=== PATIENT | female | born 1955 | race African-American/Black ===

== ENCOUNTER 2016-10-05 22:49 | Emergency (ER) | payer MEDICAID ==
[2016-08-08 12:12] VITALS: BMI 20.3
[~2016-10-05 22:49] MED LIST: ATIVAN1 MG PO; BACTRIM DS TABL1 TAB PO; CARAFATE1 G PO; CATAPRES0.1 MG PO; CELEXA20 MG PO; COMBIVENT RESPIM4 GM INH; DESERYL100 MG PO; DIOVAN320 MG PO; ELIQUIS5 MG PO; HYDROCODONE-APA1 TAB PO; IPRAT-ALBUT 0.5-3 ML UPD; LEVAQUIN500 MG PO; MEDROL DOSE PACK4 MG PO; MUCINEX DM ER1 EAC1 PO; NORCO 10/325 TA1 TA1 PO; NORCO 5/325 TAB1 TA1 PO; NORVASC10 MG PO; NORVASC5 MG PO; PLAVIX75 MG PO; PREDNISONE20 MG PO; PRILOSEC20 MG PO; PROTONIX40 MG PO; SINGULAIR10 MG PO; VENTOLIN HFA18 GM INH; ZANAFLEX4 MG PO; ZESTRIL10 MG PO; ZOCOR20 MG PO; ZOCOR40 MG PO; ZOFRAN ODT4 MG/UDTAB PO
[2016-10-05 23:16] LABS: BASOPHILS 0.2 % (0.0-2.0); EOSINOPHILS 0.5 % (0-7); HEMATOCRIT 29.5 % (36.0-48.0); HEMOGLOBIN 8.8 g/dL (12-16); IMMATURE GRANULOCYTES 0.3 % (0-5); LYMPHOCYTES 21.3 % (15-50); MCH 23.2 pg (26.0-34.0); MCHC 29.8 g/dL (31.0-37.0); MCV 77.6 fL (80.0-100.0); MEAN PLATELET VOLUME 9.3 fL (7.4-10.4); MONOCYTES 4.3 % (2-11); NEUTROPHILS 73.4 % (40-80); PLATELET COUNT 333 10x3/uL (130-400); RDW 14.4 % (11.5-14.5); WBC 8.6 10x3/uL (4.8-10.8)
[2016-10-05 23:28] LABS: ALBUMIN 3.2 g/dL (3.4-5.0); ALKALINE PHOSPHATASE 93 U/L (46-116); ALT (SGPT) 22 U/L (10-68); CALC OSMOLALITY 277 mosm/kg (275-300); CALCIUM 8.8 mg/dL (8.5-10.1); CARBON DIOXIDE 23.7 mmol/L (21.0-32.0); CHLORIDE - SERUM 102 mmol/L (98-107); CREATININE - SERUM 1.2 mg/dL (0.6-1.3); POTASSIUM - SERUM 4.4 mmol/L (3.5-5.1); PROTEIN - SERUM 7.3 g/dL (6.4-8.2); SODIUM 137 mmol/L (136-145); UREA NITROGEN 15 mg/dL (7-18); eGFR NON AFRICAN AMERICAN 48 mL/min (90-120)
[2016-10-05 23:34] LABS: GLUCOSE 161 mg/dL (74-106)
[2016-10-05 23:45] LABS: CKMB 0.2 U/L (0.0-3.6); CREATINE KINASE 62 UL (21-215); TROPONIN-I < 0.017 ng/mL (0.000-0.060)
== END 2016-10-06 01:34 | disposition home or self-care (01) ==
LOC: D.ER 22:49
PROVIDERS: Emergency Medicine
DX: J45.909 Unspecified asthma, uncomplicated (principal); R07.9 Chest pain, unspecified; D64.9 Anemia, unspecified; R20.0 Anesthesia of skin; J44.9 Chronic obstructive pulmonary disease, unspecified

== ENCOUNTER 2016-11-08 20:17 | Emergency (ER) | payer MEDICAID ==
[2016-08-08 12:12] VITALS: BMI 20.3
[2016-11-08 21:27] LABS: BASOPHILS 0.5 % (0.0-2.0); EOSINOPHILS 6.7 % (0-7); HEMATOCRIT 27.9 % (36.0-48.0); IMMATURE GRANULOCYTES 0.1 % (0-5); LYMPHOCYTES 47.1 % (15-50); MCH 22.2 pg (26.0-34.0); MCHC 28.7 g/dL (31.0-37.0); MCV 77.5 fL (80.0-100.0); MEAN PLATELET VOLUME 10.1 fL (7.4-10.4); MONOCYTES 7.3 % (2-11); NEUTROPHILS 38.3 % (40-80); PLATELET COUNT 325 10x3/uL (130-400); RDW 15.3 % (11.5-14.5); WBC 8.6 10x3/uL (4.8-10.8)
[2016-11-08 21:42] LABS: ALBUMIN 3.3 g/dL (3.4-5.0); ALKALINE PHOSPHATASE 75 U/L (46-116); ALT (SGPT) 18 U/L (10-68); BILIRUBIN - TOTAL 0.24 mg/dL (0.2-1.3); CALC OSMOLALITY 278 mosm/kg (275-300); CALCIUM 8.9 mg/dL (8.5-10.1); CARBON DIOXIDE 24.4 mmol/L (21.0-32.0); CHLORIDE - SERUM 104 mmol/L (98-107); CREATININE - SERUM 1.2 mg/dL (0.6-1.3); POTASSIUM - SERUM 4.6 mmol/L (3.5-5.1); SODIUM 139 mmol/L (136-145); UREA NITROGEN 15 mg/dL (7-18); eGFR NON AFRICAN AMERICAN 48 mL/min (90-120)
[2016-11-08 21:43] LABS: GLUCOSE 91 mg/dL (74-106)
[2016-11-08 21:50] LABS: CREATINE KINASE 203 UL (21-215); MAGNESIUM - SERUM 1.8 mg/dL (1.8-2.4); PRO BNP 130 pg/mL (0-125)
[2016-11-08 21:51] LABS: TROPONIN-I < 0.017 ng/mL (0.000-0.060)
== END 2016-11-08 22:45 | disposition home or self-care (01) ==
LOC: D.ER 20:17
PROVIDERS: Nurse Practitioner Family
DX: D64.9 Anemia, unspecified (principal); J44.9 Chronic obstructive pulmonary disease, unspecified; I95.9 Hypotension, unspecified; Z95.0 Presence of cardiac pacemaker

== ENCOUNTER 2016-11-28 11:11 | Inpatient (IN) | payer MEDICAID ==
[~2016-11-28] VITALS: Ht 165.1 cm; Wt 88.8 kg
[2016-11-28 12:21] LABS: BASOPHILS 0.4 % (0.0-2.0); EOSINOPHILS 6.8 % (0-7); HEMATOCRIT 30.6 % (36.0-48.0); HEMOGLOBIN 8.8 g/dL (12-16); IMMATURE GRANULOCYTES 0.2 % (0-5); LYMPHOCYTES 23.2 % (15-50); MCH 21.2 pg (26.0-34.0); MCHC 28.8 g/dL (31.0-37.0); MCV 73.6 fL (80.0-100.0); MEAN PLATELET VOLUME 9.6 fL (7.4-10.4); MONOCYTES 3.3 % (2-11); NEUTROPHILS 66.1 % (40-80); PLATELET COUNT 333 10x3/uL (130-400); RBC 4.16 10x6/uL (4.00-5.40); RDW 15.6 % (11.5-14.5)
[2016-11-28 12:37] LABS: ALBUMIN 3.5 g/dL (3.4-5.0); ANION GAP 16.6 mmol/L (8-16); BILIRUBIN - TOTAL 0.37 mg/dL (0.2-1.3); CALCIUM 8.9 mg/dL (8.5-10.1); CARBON DIOXIDE 22.9 mmol/L (21.0-32.0); POTASSIUM - SERUM 3.5 mmol/L (3.5-5.1); PROTEIN - SERUM 7.7 g/dL (6.4-8.2)
[2016-11-28] MEDS ORDERED: KLONOPIN1 MG PO (15:25)
[2016-11-28] MEDS ORDERED: GLUCOPHAGE1000 MG PO (15:26)
--- NOTE | 2016-11-28 15:32 | NUR ---
RECEIVED PT VIA STRETCHER FROM HOSPITAL STAFF (ER NURSES). PT IS ALERT AND ORIENTED. ON ROOM AIR (SAT IS 99%). IV SEEN TO LEFT HAND, NS STARTED BACK ORDERED. LABORED BREATHING WITH WHEEZES HEARD. DENIES ANY PAIN AT THIS TIME. WILL CONTINUE TO ADMIT PT AND AWAIT NEW ORDERS.
[2016-11-28 15:34] VITALS: BP 151/83; BMI 32.3
--- NOTE | 2016-11-28 19:05 | NUR ---
PM ROUNDING- PT SITTING UP IN BED VISITING WITH FAMILY MEMBERS IN ROOM. ON MONITOR SHOWING ST, HR 107. ON ROOM AIR. 22G IV SEEN TO LEFT HAND WITH ANTIBIOTICS CURRENTLY RUNNING. PT HAS A PRODUCTIVE COUGH. ON LOVENOX INJECTION FOR DVT PREVENTION. NO NEED AT CURRENT TIME. WILL PASS THIS ALONG TO MANAGING PARTNER NURSE THAT COMES IN AT 1000.
[2016-11-28 20:00] VITALS: BP 115/72
--- NOTE | 2016-11-28 21:16 | NUR ---
PTS DAUGHTER CALLED ME AND STATED PT IS IN THE ROOM C/O TROUBLE BREATHING. WENT AND CHECKED PTS O2 SAT WHICH IS 97% ON ROOM AIR. PTS FAMILY AND PT IS REQUESTING O2 TO BE PUT ON PT. PUT PT ON 02 AT 2L VIA NC AND PT STATED SHE WAS BREATHING BETTER. PT O2 SAT IS 97% WITH 02 AT 2L. WILL PAGE MONISHA GARZON NP AND INFORM HER OF THIS.
--- NOTE | 2016-11-28 21:19 | NUR ---
AUDI GARZON NP TO INFORM HER OF PT AND PTS FAMILY (DAUGHTERS) REQUEST TO BE ON . WILL AWAIT CALLBACK AND CONTINUE TO MONITOR.
--- NOTE | 2016-11-28 21:31 | NUR ---
RECEIVED CALLBACK FROM MONISHA GARZON NP. MONISHA GARZON NP STATED IT WAS OK TO PUT PT ON 02 AT 2L VIA MA. NEW ORDERS RECEIVED.
--- NOTE | 2016-11-28 21:47 | NUR ---
CALLED INTO PTS ROOM. PT INFORMED ME THAT AREA AROUND IV SITE WAS HURTING HER. PTS IV CATHETER WAS SHELTER OUT. TOOK IV CATHETER OUT WITH CATH TIP INTACT. COVERED SITE WITH 2X2 GAUZE AND SECURED IT WITH TAPE. RESITED PT TO RIGHT FOREARM X1 STICK WITH 22G IV CATHETER, SECURED WITH TAPE AND TEGADERM. IV FLUIDS RESTARTED ORDERED. WILL CONTINUE TO MONITOR AND CONTINUE WITH PLAN OF CARE.
--- NOTE | 2016-11-28 23:00 | NUR ---
RADIOLOGY HERE TO TAKE PATIENT FOR CTA VIA WHEELCHAIR.
[2016-11-29] VITALS: BP 141/76
--- NOTE | 2016-11-29 00:30 | NUR ---
REPORT RECEIVED AND CARE ASSUMED. AWAKE AND ALERT, LYING IN BED. NO VOICED NEEDS OR DISCOMFORT. SEE ASSESSMENT FLOW SHEET FOR FURTHER DETAILS. WILL MONITOR AND CONTINUE PLAN OF CARE.
[2016-11-29 04:00] VITALS: BP 156/80
[2016-11-29 05:13] LABS: BASOPHILS 0 % (0.0-2.0); EOSINOPHILS 0 % (0-7); HEMATOCRIT 28.7 % (36.0-48.0); HEMOGLOBIN 8.4 g/dL (12-16); IMMATURE GRANULOCYTES 0.3 % (0-5); LYMPHOCYTES 9.7 % (15-50); MCH 21.4 pg (26.0-34.0); MCHC 29.3 g/dL (31.0-37.0); MCV 73.2 fL (80.0-100.0); MEAN PLATELET VOLUME 9.9 fL (7.4-10.4); MONOCYTES 1.6 % (2-11); NEUTROPHILS 88.4 % (40-80); PLATELET COUNT 340 10x3/uL (130-400); RBC 3.92 10x6/uL (4.00-5.40); RDW 15.6 % (11.5-14.5); WBC 10.3 10x3/uL (4.8-10.8)
[2016-11-29 05:45] LABS: ANION GAP 16.2 mmol/L (8-16); CALCIUM 9.7 mg/dL (8.5-10.1); CARBON DIOXIDE 21.9 mmol/L (21.0-32.0)
[2016-11-29 05:53] LABS: POTASSIUM - SERUM 4.1 mmol/L (3.5-5.1)
[2016-11-29 08:11] VITALS: BP 178/96
--- NOTE | 2016-11-29 08:40 | NUR ---
RECEIVED CARE FROM NIGHT NURSE. PATIENT EATING BREAKFAST WILL CONTINUE TO MONITOR.
[2016-11-29 10:47] LABS: % SATURATION 4 % (15-55); IRON 18 ug/dl (35-150); TOTAL IRON BIND CAPACITY 388 ug/dl (260-445); UNSAT IRON BIND CAPACITY 370 ug/dl (150-375)
--- NOTE | 2016-11-29 10:49 | NUR ---
AMBULATING IN [place] WITH PT. CONCERN ABOUT BP MEDS. ADDRESSED WITH Jonny GARZON APN.
--- NOTE | 2016-11-29 10:52 | NUR ---
PT IS CURRENTLY SITTING UP IN CHAIR. FAMILY MEMBER AT BEDSIDE. ON 02 AT 2L VIA NC. ON MONITOR SHOWING ST, HR 108. ON 02 AT 2L VIA NC. IV SEEN TO RIGHT FOREARM WITH NS RUNNING AT 50CC/HR. ON LOVENOX INJECTION FOR DVT PREVENTION PER REPORT. PT IS CURRENTLY ASKING ABOUT HER BLOOD PRESSURE MEDICINE. STEPHANIE AVILES, CLERICAL PRODUCTION WORKER STATED THAT SHE HAS ALREADY TALKED TO MONISHA GARZON NP ABOUT THAT. NO NEED AT CURRENT TIME. STEPHANIE AVILES, CLERICAL PRODUCTION WORKER IS DOING DAILY SHIFT ASSESSMENT. WILL CONTINUE WITH CARE PLAN AND TEACHING. WILL CONTINUE WITH PLAN OF CARE.
[2016-11-29 11:58] VITALS: BP 140/78
[2016-11-29 12:45] VITALS: Ht 165.1 cm; Wt 88.8 kg
--- NOTE | 2016-11-29 12:57 | NUR ---
MIGUEL EDUARDO CAME TO INFORM ME THAT PT IS HAVING C/O CHEST PAIN. DR. TOSCANO AND MONISHA GARZON NP ARE IN ROOM NOW WITH PT AND ARE AWARE OF THIS. WILL CONTINUE TO MONITOR AND AWAIT NEW ORDERS.
[2016-11-29 15:55] VITALS: BP 114/63
--- NOTE | 2016-11-29 16:22 | NUR ---
EKG DONE ORDERED. DID TWO OF THEM WHILE IN ROOM. SHOWED MONISHA GARZON NP WHO IS ON UNIT NOW. NO NEW ORDERS RECEIVED. WILL CONTINUE TO MONITOR.
[2016-11-29 17:32] LABS: CKMB 5.7 U/L (0.0-3.6); CREATINE KINASE 72 UL (21-215)
[2016-11-29 17:41] LABS: TROPONIN-I < 0.017 ng/mL (0.000-0.060)
--- NOTE | 2016-11-29 17:53 | NUR ---
PT SITTING UP IN BED WITH EYES OPEN WATCHING TV. DENIES ANY NEED AT CURRENT TIME. WILL CONTINUE TO MONITOR.
--- NOTE | 2016-11-29 19:30 | NUR ---
SITTING UP IN BED, WATCHING TV WITH VISISTOR. TELEMETRY SHOWING HR ST- SR PER MONITOR, RESP UNLAB WITH O2 @ 2L VIA NC. LEFT AC IV WITH NS AT 30CC/HR VIA PUMP IN PLACE W/O DIFF. NO R/S NOTED AT SITE. HOB UP SR UP X2, C/L IN REACH. UP AD MANNY W/O DIFF. ALERT AND ORIENTED X3. CONTINUE TO MONITOR.
[2016-11-29 20:29] VITALS: BP 116/60
[2016-11-29 22:27] LABS: CKMB 0.6 U/L (0.0-3.6); CREATINE KINASE 61 UL (21-215)
[2016-11-29 22:33] LABS: TROPONIN-I < 0.017 ng/mL (0.000-0.060)
[2016-11-30] VITALS: BP 115/52
--- NOTE | 2016-11-30 03:54 | NUR ---
EYES CLOSED, RESP UNLAB WITH NO S/S OF ACUTE DISTRESS NOTED. C/L IN REACH, CONTINUE TO MONITOR.
[2016-11-30 04:00] VITALS: BP 112/64
[2016-11-30 04:21] LABS: BASOPHILS 0 % (0.0-2.0); EOSINOPHILS 0 % (0-7); HEMATOCRIT 28.8 % (36.0-48.0); HEMOGLOBIN 8.3 g/dL (12-16); IMMATURE GRANULOCYTES 0.2 % (0-5); LYMPHOCYTES 8.2 % (15-50); MCH 21.3 pg (26.0-34.0); MCHC 28.8 g/dL (31.0-37.0); MEAN PLATELET VOLUME 9.6 fL (7.4-10.4); MONOCYTES 1.9 % (2-11); NEUTROPHILS 89.7 % (40-80); PLATELET COUNT 363 10x3/uL (130-400); RBC 3.89 10x6/uL (4.00-5.40); RDW 15.7 % (11.5-14.5); WBC 12.9 10x3/uL (4.8-10.8)
[2016-11-30 04:51] LABS: CALCIUM 9.3 mg/dL (8.5-10.1); CARBON DIOXIDE 24.9 mmol/L (21.0-32.0); CHLORIDE - SERUM 104 mmol/L (98-107); CKMB 0.5 U/L (0.0-3.6); CREATINE KINASE 48 UL (21-215); POTASSIUM - SERUM 4.2 mmol/L (3.5-5.1); SODIUM 138 mmol/L (136-145); eGFR NON AFRICAN AMERICAN 60 mL/min (90-120)
[2016-11-30 04:57] LABS: CALC OSMOLALITY 287 mosm/kg (275-300); GLUCOSE 301 mg/dL (74-106); TROPONIN-I < 0.017 ng/mL (0.000-0.060); UREA NITROGEN 16 mg/dL (7-18)
[2016-11-30 07:47] VITALS: BP 115/63
[2016-11-30 09:21] LABS: FOLATE (FOLIC ACID) - SERUM 4.2 ng/mL (>3.0)
--- NOTE | 2016-11-30 09:36 | NUR ---
0700- AM ROUNDING- PT SITTING UP IN BED WITH EYES OPEN RESTING. ON MONITOR SHOWING ST, HR 111. ON LOVENOX INJECTION FOR DVT PREVENTION. ON ROOM AIR. IV SEEN TO LEFT AC WITH ANTIBIOTICS CURRENTLY RUNNING. PER TRANSPORTATION COORDINATOR NURSE LILIBETH PT HAD EKG DONE DURING TRANSPORTATION COORDINATOR. NO NEED AT CURRENT TIME. WILL CONTINUE WITH PLAN OF CARE AND CONTINUE TO MONITOR.
--- NOTE | 2016-11-30 10:15 | NUR ---
PT STATED TO ME THAT SHE SHE FELT DIZZY AND NOT WELL. I CHECKED PTS BS WHICH IS 466. PAGED MONISHA GARZON NP TO NOTIFY HER OF THIS. MONISHA GARZON NP CALLED BACK AND GAVE NEW ORDERS. WILL CONTINUE TO MONITOR.
--- NOTE | 2016-11-30 10:23 | NUR ---
CALLED PHARMACY TO SEE IF THEY COULD ACKNOWLEDGE INSULIN ORDERS SO I CAN GIVE IT TO PT. AWAITING PHARMACY TO BRING INSULIN.
[2016-11-30 11:45] VITALS: BP 125/60
[2016-11-30 15:47] VITALS: BP 137/71
--- NOTE | 2016-11-30 17:52 | NUR ---
PT SITTING UP IN BED WITH EYES OPEN WATCHING TV. AT BEDSIDE. NO NEED AT CURRENT TIME. WILL CONTINUE TO MONITOR.
--- NOTE | 2016-11-30 18:42 | NUR ---
PT STATES THAT WHEN DR. RASHID WAS MAKING ROUNDS EARLIER TODAY HE STATED HE WOULD GET HER SOMETHING ORDERED FOR BACK PAIN. I HAVE NOT SEEN ANY NEW ORDERS FOR PAIN MEDICATION. PAGED MONISHA GARZON NP. MONISHA GARZON NP CALLED BACK IMMEDIATELY WITH NEW ORDERS. WILL CONTINUE TO MONITOR.
--- NOTE | 2016-11-30 19:57 | NUR ---
INTRODUCED MYSELF TO PT PRIMARY RN FOR [facility] SHIFT. PT IS SITTING UP IN BED RESTING QUIETLY. ALERT & ORIENTED. SHIFT ASSESSMENT COMPLETED AND MUSEUM PREPARATOR MAKING ROUNDS FOR VITALS. PT DENIES ANY CURRENT NEEDS AT THIS TIME WILL PULL NIGHTLY SCHEDULED MEDICATIONS AND CONTINUE WITH PLAN OF CARE. CL IN REACH, BED IN LOWEST, SIDE RAILS X2.
[2016-11-30 20:00] VITALS: BP 138/75
[2016-11-30 23:27] LABS: APPEARANCE CLEAR (CLEAR); BILIRUBIN NEGATIVE (NEGATIVE); COLOR YELLOW (YELLOW); GLUCOSE 1000 mg/dL (NEGATIVE); KETONE NEGATIVE (NEGATIVE); LEUKOCYTE ESTERASE NEGATIVE (NEGATIVE); NITRITE NEGATIVE (NEGATIVE); PROTEIN NEGATIVE (NEGATIVE); UROBILINOGEN NORMAL (NORMAL)
[2016-12-01] VITALS: BP 106/62
[2016-12-01 04:00] VITALS: BP 127/80
--- NOTE | 2016-12-01 05:41 | NUR ---
PT CALLED REQUESTING PRN PAIN MEDICATION FOR SEVERE BACK ACHING. PROVIDED PT WITH NORCO. PT VOICED THANKS AND DENIES ANY FURTHER NEEDS AT THIS TIME. CL IN REACH, BED IN LOWEST, SIDE RAILS X2. WILL CTM.
[2016-12-01 06:24] LABS: BASOPHILS 0 % (0.0-2.0); EOSINOPHILS 0.1 % (0-7); HEMATOCRIT 28.6 % (36.0-48.0); HEMOGLOBIN 8.1 g/dL (12-16); IMMATURE GRANULOCYTES 0.3 % (0-5); LYMPHOCYTES 11.7 % (15-50); MCH 20.9 pg (26.0-34.0); MCHC 28.3 g/dL (31.0-37.0); MCV 73.9 fL (80.0-100.0); MONOCYTES 3.4 % (2-11); NEUTROPHILS 84.5 % (40-80); PLATELET COUNT 384 10x3/uL (130-400); RBC 3.87 10x6/uL (4.00-5.40); RDW 15.6 % (11.5-14.5); WBC 12.3 10x3/uL (4.8-10.8)
[2016-12-01 06:41] LABS: ANION GAP 13.9 mmol/L (8-16); CALCIUM 9.3 mg/dL (8.5-10.1); CARBON DIOXIDE 24.9 mmol/L (21.0-32.0); CREATININE - SERUM 1.1 mg/dL (0.6-1.3); POTASSIUM - SERUM 3.8 mmol/L (3.5-5.1)
[2016-12-01 07:00] VITALS: BP 152/85
--- NOTE | 2016-12-01 08:00 | NUR ---
PATIENT ALERT/ORIENT X4. LAC IV SITE. TELEMTRY IN PLACE. PATIENT TAKING SELF TO BATHROOM. AWARE OF NEED FOR STOOL SAMPLE.
--- NOTE | 2016-12-01 09:11 | NUR ---
RESTS WITH EYES CLOSED. IV PATENT. CALL LIGHT IN REACH. WILL CONT. PLAN OF CARE.
[2016-12-01 12:02] VITALS: BP 132/71
--- NOTE | 2016-12-01 12:04 | NUR ---
GLUCOSE LEVEL 393. TEN UNITS OF SLIDING SCALE INSULIN GIVEN. IV SITE LEAKING. IV KVO STOPED.
--- NOTE | 2016-12-01 13:29 | NUR ---
NEDA RN, VASCULAR NURSE HERE TO START IV LINE
--- NOTE | 2016-12-01 13:39 | NUR ---
IV access-22 gauge inserted left wrist. ROWENA Finney
--- NOTE | 2016-12-01 14:57 | NUR ---
Patient Name: HUSSEIN DURBIN Admission Status: ER Accout number: [id number] Admission Date: 11-29-2016 : 1955 Admission Diagnosis: Attending: MIKAEL Current LOS: 2 Anticipated DC Date: Planned Disposition: Home Primary Insurance: MEDICAID [place] Discharge Planning Comments: * Is the patient Alert and Oriented? Yes 0 * How many steps to enter\exit or inside your home? 0-I / 10-O 0 * PCP DR. ACEVEDO 0 * Pharmacy [facility] 0 * Preadmission Environment Home with Family 0 * ADLs Independent 0 * Equipment Nebulizer 0 * Other Equipment [facility] - MEDICAL EQUIPMENT PROVIDER 0 * List name and contact numbers for known caregivers / representatives who currently or will assist patient after discharge: CONNIE DURBIN, SPOUSE, 0 * Community resources currently utilized None 0 * Please name any agencies selected above. NONE 0 * Additional services required to return to the preadmission environment? No 0 * Can the patient safely return to the preadmission environment? Yes 0 * Has this patient been hospitalized within the prior 30 days at any hospital? No 0 CM MET WITH PT AND SPOUSE IN ROOM TO DISCUSS DISCHARGE PLANNING AND NEEDS. PT REPORTS LIVING AT HOME INDEPENDENTLY WITH HER SPOUSE. PT HAS NEBULIZER, [facility] IS PROVIDER. PT HAS NO OUTSIDE SERVICES ASSISTING IN THE HOME. CM DISCUSSED AVAILABILITY OF HOME HEALTH, REHAB SERVICES AND MEDICAL EQUIPMENT. PT DENIES DISCHARGE NEEDS, REPORTS HER SPOUSE WILL PICK HER UP FOR DISCHARGE HOME. CM TO FOLLOW AND ASSIST NEEDED. Dominatrix: Timmy Rivera
[2016-12-01 15:27] VITALS: BP 120/71
--- NOTE | 2016-12-01 17:24 | NUR ---
GLUCOSE LEVEL 290. SIX UNITS OF SLIDING SCALE GIVEN.
[2016-12-01 20:00] VITALS: BP 149/80
[2016-12-02] VITALS: BP 135/79
--- NOTE | 2016-12-02 01:47 | NUR ---
PT RESTING QUIETLY IN BED WITH EYES CLOSED. RR NONLABORED WITH NC @2L IN PLACE. NO S/S OF DISTRESS OR ANY CURRENT NEEDS NOTED AT THIS TIME. CL IN REACH. WILL CTM.
[2016-12-02 04:00] VITALS: BP 162/88
--- NOTE | 2016-12-02 05:26 | NUR ---
PT CALLED C/O HER L.WRIST PIV HURTING HER. IV WAS NOT INFILTRATED BUT WAS LEAKING. D/C PIV WITH CATHETER TIP FULLY INTACT. RESITED PT TO HER R.HAND WITH A 22 GUAGE X1 ATTEMPT. PT C/O BACK PAIN REQUESTING AND PROVIDED WITH PRN NORCO ALONG WITH A CUP OF COFFEE. PT VOICED THANKS AND DENIES ANY FURTHER NEEDS AT THIS TIME. CL IN REACH, BED IN LOWEST, SIDE RAILS X2. WILL CTM.
[2016-12-02 06:13] LABS: BASOPHILS 0 % (0.0-2.0); EOSINOPHILS 0 % (0-7); HEMATOCRIT 27.9 % (36.0-48.0); HEMOGLOBIN 8.1 g/dL (12-16); IMMATURE GRANULOCYTES 0.5 % (0-5); MCH 21.1 pg (26.0-34.0); MCV 72.7 fL (80.0-100.0); MONOCYTES 2.5 % (2-11); PLATELET COUNT 347 10x3/uL (130-400); RBC 3.84 10x6/uL (4.00-5.40); RDW 15.6 % (11.5-14.5); WBC 11.1 10x3/uL (4.8-10.8)
[2016-12-02 06:49] LABS: CALCIUM 8.9 mg/dL (8.5-10.1); CARBON DIOXIDE 23.8 mmol/L (21.0-32.0); CREATININE - SERUM 1.1 mg/dL (0.6-1.3); POTASSIUM - SERUM 3.8 mmol/L (3.5-5.1)
--- NOTE | 2016-12-02 06:54 | NUR ---
FSBS 317. PT REC'D 8 UNITS PER SS INSULIN. PT SITTING UP IN BED CONCERNED ABOUT LOSING HER PURSE YESTERDAY VERY EMOTIONAL. DENIES ANY NEEDS THOUGH. CL IN REACH, BED IN LOWEST, SIDE RAILS X2. WILL CPOC.
[2016-12-02 09:09] VITALS: BP 138/79
[2016-12-02] MEDS ORDERED: SINGULAIR10 MG PO (10:36)
[2016-12-02] MEDS ORDERED: FERREX 150 PLUS1 CAP PO (10:36)
[2016-12-02] MEDS ORDERED: SYMBICORT 16010.2 GM INH (10:37)
[2016-12-02] MEDS ORDERED: PREDNISONE10 MG PO (10:37)
[2016-12-02] MEDS ORDERED: VIBRAMYCIN 100100 MG PO (10:37)
--- NOTE | 2016-12-02 11:42 | NUR ---
RECEIVED PATIENT LAYING IN THE BED. ALERT AND ORIENTED. O2 @ 3L/MIN PER NC IN USE. C/O CONSTANT BACK PAIN 05/04 HOWEVER HAD PRN PAIN MED AT 0540. UPSET SHE HAD LOST HER PURSE HOWEVER CALLED [facility] AND PATIENT'S PURSE WAS FOUND WRAPPED UP IN THE DIRTY [facility]. THEY ARE TO RETURN IT TO PATIENT. PATIENT'S IV STOPPED PER HER REQUEST SO SHE COULD BATHE. FSBS 338 AT 11:30 REQUIRING SS COVERAGE. IV FLUIDS RECONNECTED TO EXISTING PERIPHERAL IV AND INFUSING WITHOUT DIFFCULTY. BED IN LOW POSITION. CALL LIGHT WITHIN REACH.
[2016-12-02 12:38] VITALS: BP 102/57
--- NOTE | 2016-12-02 13:07 | NUR ---
PATIENTS PURSE WAS RETURNED BY ISABEL/OK TO ME. I TOOK PURSE INTO ROOM AND PLACED ON BED AND WAITED FOR PATIENT TO RETURN OUT OF BATHROOM. PATIENT INSPECTED PURSE AND STATED THAT $46.00 IN BILLS AND $20.00 IN CHANGE WAS MISSING FROM PURSE. THIS INFORMATION WAS REPORTED TO STEPHANIE GUAMAN/AN/SQQ [phone](V)[phone] SONAR SYSTEM JOURNEYMAN.
--- NOTE | 2016-12-02 14:00 | NUR ---
NOTIFIED WILBERT WITH SECURITY REGARDING THE CLAIM OF STOLEN MONEY OUT OF PURSE BY PATIENT. WILBERT ADVISED HE WOULD ADD TO REPORT.
--- NOTE | 2016-12-02 15:15 | NUR ---
DISCHARGED HOME ACCOMPANIED BY FAMILY PER PRIVATE VEHICLE. PERSONAL BELONGINGS RETURNED TO PATIENT AND SECURITY WAS TO SPEAK TO PATIENT RELATING TO HER MONEY MISSING. PRESCRIPTIONS GIVEN TO PATIENT ALONG WITH VERBAL AND WRITTEN DISCHARGE INSTRUCTIONS. SALINE LOCK DC'D WITH CATHETER INTACT. CONDITION STABLE AT TIME OF DISCHARGE.
--- NOTE | 2016-12-16 13:49 | CN ---
PATIENT NAME:HUSSEIN DURBIN MEDICAL RECORD: [id number] : 57 LOCATION:[address] ADMIT DATE: 11/29/16 ACCOUNT: [id number] CONSULTING PHYSICIAN: EDVIN MOE MD REFERRING PHYSICIAN: FERNANDO ACEVEDO MD DATE OF CONSULTATION: 11/28/2016 CONSULT REQUESTING PHYSICIAN: Dr. Jona Esteban. REASON FOR CONSULTATION: Acute exacerbation of chronic obstructive pulmonary disease and shortness of breath. HISTORY OF PRESENT ILLNESS: Ms. Durbin is a 61-year-old -[place] female who is sick since last . She has upper respiratory infection, which went down to her chest. She is coughing with yellow-colored sputum production. She is wheezing. She has shortness of breath with mild exertion. She was also dyspneic and felt a bit lightheaded. There was no loss of consciousness. Denies any night sweats. REVIEW OF SYSTEMS: Mainly in the history of present illness. PAST MEDICAL HISTORY: 1. Asthma. 2. COPD. 3. Severe gastroesophageal reflux disease. 4. History of hypertension. 5. Ex-smoker. PAST SURGICAL HISTORY: 1. Cholecystectomy. 2. Hysterectomy and bilateral salpingo-oophorectomy. 3. She is status post pacemaker insertion. ALLERGIES: SHE IS ALLERGIC TO PENICILLIN. PRESENT MEDICATIONS: She is on albuterol/ipratropium nebulizer. PERSONAL AND SOCIAL HISTORY: The patient has quit smoking more than a year ago. She is a nondrinker. FAMILY HISTORY: Noncontributory. PHYSICAL EXAMINATION: GENERAL: The patient is in mild respiratory distress. VITAL SIGNS: The blood pressure is 151/83, pulse is 97, respirations 20, temperature 97.9, SpO2 99% on room air. HEENT: Conjunctivae pink, sclerae nonicteric. The throat is congested. NECK: Supple, no JVD. CHEST: There is prolonged expiration with wheezing. HEART: Rhythm regular, normal sound, no murmur. ABDOMEN: Soft. Bowel sounds present. No hepatosplenomegaly. RECTAL: Deferred. EXTREMITIES: No cyanosis, no clubbing, no pedal edema. SKIN: Warm, normal turgor. CONSULT REPORT [id number] HUSSEIN DURBIN CENTRAL NERVOUS SYSTEM: The patient is awake and alert. There are no obvious cranial nerve abnormalities. The gait was not tested. CHEST RADIOGRAPH: Hyperinflation, no acute infiltrates. LABORATORY DATA: CBC: WBC 10,000, hemoglobin 8.8, hematocrit 30.6, platelet count is 333. Chemistry: Sodium 142, potassium 3.7, BUN is 12, creatinine is 1, glucose 101. IMPRESSION: 1. Acute exacerbation of chronic obstructive pulmonary disease. 2. Acute tracheobronchitis. 3. Asthma. 4. Gastroesophageal reflux disease. 5. Ex-smoker. RECOMMENDATION: 1. Albuterol/ipratropium nebulizer q.4 hours, Brovana/budesonide nebulizer b.i.d. 2. Methylprednisolone IV. 3. Doxycycline IV. 4. GERD precautions. 5. Protonix [address] daily[address] Esteban, once again thanks for involving me in the care of Ms. Durbin. TRANSINT:[id number] Voice Confirmation ID: [id number] DOCUMENT ID: [id number] EDVIN MOE MD at 1349 CC: FERNANDO ACEVEDO MD [id number] DICTATION DATE: 11/28/161751 BASE REMOVER: 11/29/16 0115 DIS IN 12/02/16 [facility] [address] [place] [address]
--- NOTE | 2016-12-22 13:46 | HP ---
PATIENT: HUSSEIN DURBIN MEDICAL RECORD: [id number] ACCOUNT: [id number] LOCATION:[address] : [birth year] ADMISSION DATE: 11/29/16 HISTORY AND PHYSICAL EXAMINATION HISTORY OF PRESENT ILLNESS: A 61-year-old white female presented to the clinic upon day of admission with complaint of increasing shortness breath. The patient states that she has had a 1-week history of increasing cough, congestion, shortness breath, and wheezing, unable to catch to her breath with any exertion and came in for evaluation. The patient was to initially be weighed for her pain medication, but she states she was too fatigued to do this, and instead had to sit down, had a near syncopal episode following this from hyperventilation and anxiety and had to be transported for evaluation. The patient was seen in the Emergency Room, confirmed she does not have a stroke. The patient has had one in the past. She insisted on going by ambulance, which her wishes were respected and the patient will be admitted for 23-hour observation following this. PAST MEDICAL HISTORY: Significant for peripheral vascular disease, CVA in the past, type 2 diabetes mellitus, hypertension, anxiety disorder, mixed dyslipidemia, chronic low back pain, GERD, peripheral vascular disease, noncompliance, COPD, and nicotine dependence. The patient quit smoking. The patient has had a history of noncompliance with her blood pressure medicines in the past. PAST SURGICAL HISTORY: Includes appendectomy, cholecystectomy, pacemaker, and hysterectomy. HABITS: The patient does not smoke. She quit approximately 1 year ago. No alcohol use. MEDICATIONS: Include glargine insulin, metformin, Cozaar, simvastatin, [place], Dulera, Zantac, Eliquis, and Klonopin. REVIEW OF SYSTEMS: As above. PHYSICAL EXAMINATION: VITAL SIGNS: As below, her blood pressure was 130/98 with a respiratory rate of 36 and pulse ox of 99% on room air with a heart rate of 99. GENERAL: She is a mildly obese black female that is well-developed, well-nourished, and some anxiety. HEENT: Pupils are equal, round and reactive to light. Extraocular movements are intact. Oral cavity and oropharynx are otherwise clear. No poor dentition. NECK: No cervical or pharyngeal adenopathy. No nuchal rigidity. LUNGS: Coarse breath sounds throughout with expiratory wheezes heard on the bilateral upper lobes. HEART: Has tachycardia, regular rate and rhythm. No murmurs, gallops or rubs. ABDOMEN: Soft, nontender, and positive bowel sounds. No hepatosplenomegaly or masses. NEUROLOGIC: Cranial nerves II-XII grossly intact. Muscle strength to ____ extremities intact. Sensation is present. PSYCHIATRIC: The patient was anxious ____. ASSESSMENT: 1. Chronic obstructive pulmonary disease exacerbation. HISTORY AND PHYSICAL [id number] HUSSEIN DURBIN 2. Hypertension. 3. Type 2 diabetes mellitus. 4. Chronic pain. 5. Anxiety. 6. History of noncompliance. PLAN: The patient admitted to the hospital for 23-hour observation. She was given Solu-Medrol 125 mg IV times 1 and also given Xopenex updrafts and to be monitored appropriately. TRANSINT:[id number] Voice Confirmation ID: [id number] DOCUMENT ID: [id number] FERNANDO ACEVEDO MD at 1346 CC: [id number] DICTATION DATE: 11/28/162107 ROD MACHINE OPERATOR: 11/28/162240 DIS IN 12/02/16 [id number] [place] [address]
== END 2016-12-02 15:15 | disposition home or self-care (01) | DRG 192 ==
LOC: D.ER 11:11 → OBSVTIME 13:51 → D.M2 13:51
PROVIDERS: Emergency Medicine; Family Medicine Adult Medicine; ADMIT Family Medicine
DX: J44.1 Chronic obstructive pulmonary disease with (acute) exacerbation (principal); E78.2 Mixed hyperlipidemia; G89.29 Other chronic pain; M54.5 Low back pain; K21.9 Gastro-esophageal reflux disease without esophagitis; I10 Essential (primary) hypertension; F41.9 Anxiety disorder, unspecified; E11.65 Type 2 diabetes mellitus with hyperglycemia; D50.9 Iron deficiency anemia, unspecified; Z86.73 Personal history of transient ischemic attack (TIA), and cerebral infarction without residual deficits; Z95.0 Presence of cardiac pacemaker; Z91.19 Patient's noncompliance with other medical treatment and regimen; Z87.891 Personal history of nicotine dependence

== ENCOUNTER 2017-02-08 14:01 | Emergency (ER) | payer MEDICAID ==
[2016-11-29 12:45] VITALS: BMI 32.2
[~2017-02-08 14:01] MED LIST changes: +FERREX 150 PLUS1 CAP PO; +GLUCOPHAGE1000 MG PO; +KLONOPIN1 MG PO; +PREDNISONE10 MG PO; +SYMBICORT 16010.2 GM INH; +VIBRAMYCIN 100100 MG PO
== END 2017-02-08 16:31 | disposition home or self-care (01) ==
LOC: D.ER 14:01
DX: T37.8X5A Adverse effect of other specified systemic anti-infectives and antiparasitics, initial encounter (principal); Y92.89 Other specified places as the place of occurrence of the external cause; J44.9 Chronic obstructive pulmonary disease, unspecified; Z95.0 Presence of cardiac pacemaker; J45.909 Unspecified asthma, uncomplicated; Z86.73 Personal history of transient ischemic attack (TIA), and cerebral infarction without residual deficits

== ENCOUNTER 2017-02-12 12:43 | Emergency (ER) | payer MEDICAID ==
[2016-11-29 12:45] VITALS: BMI 32.2
[2017-02-12 14:06] LABS: BASOPHILS 0.3 % (0-2); EOSINOPHILS 4.1 % (0-7); HEMATOCRIT 30.6 % (36.0-48.0); HEMOGLOBIN 8.6 g/dL (12-16); IMMATURE GRANULOCYTES 0.2 % (0-5); LYMPHOCYTES 40.2 % (15-50); MCH 20.6 pg (26.0-34.0); MCHC 28.1 g/dL (31.0-37.0); MCV 73.4 fL (80.0-100.0); MEAN PLATELET VOLUME 9.4 fL (7.4-10.4); MONOCYTES 5.7 % (2-11); NEUTROPHILS 49.5 % (40-80); PLATELET COUNT 354 10x3/uL (130-400); RBC 4.17 10x6/uL (4.00-5.40); WBC 8.8 10x3/uL (4.8-10.8)
[2017-02-12 14:20] LABS: BILIRUBIN - TOTAL 0.21 mg/dL (0.2-1.3); CALCIUM 8.5 mg/dL (8.5-10.1); CARBON DIOXIDE 27.7 mmol/L (21.0-32.0); CREATININE - SERUM 1.1 mg/dL (0.6-1.3); POTASSIUM - SERUM 3.7 mmol/L (3.5-5.1); PROTEIN - SERUM 6.7 g/dL (6.4-8.2)
== END 2017-02-12 16:50 | disposition home or self-care (01) ==
LOC: D.ER 12:43
PROVIDERS: Emergency Medicine
DX: E11.65 Type 2 diabetes mellitus with hyperglycemia (principal); J44.9 Chronic obstructive pulmonary disease, unspecified; Z95.0 Presence of cardiac pacemaker; J45.909 Unspecified asthma, uncomplicated; Z86.73 Personal history of transient ischemic attack (TIA), and cerebral infarction without residual deficits

== ENCOUNTER 2017-02-21 14:08 | Outpatient (CLI) | payer MEDICAID ==
[~2017-02-21] VITALS: Ht 165.1 cm; Wt 89.5 kg
[2017-02-21] MEDS ORDERED: ADVAIR 500/501 DISK INH (14:59)
[2017-02-21] MEDS ORDERED: ZANTAC150 MG PO (14:59)
[2017-02-21 15:07] VITALS: BP 145/66; Ht 165.1 cm; Wt 89.5 kg
--- NOTE | 2017-02-21 19:43 | NUR ---
PATIENT TRANSFERRED BY WHEELCHAIR TO ROOM 2203 TO FINISH REMAINDER OF TRANSFUSION. PRBC'S TRANSFUSING BY RIGHT HAND AT 210 CC/HR. PATIENT DENIES COMPLAINTS, NO SIGNS OF REACTION
--- NOTE | 2017-02-21 20:04 | NUR ---
RECIEVED PT TO FLOOR FROM OUTPATIENT VIA WHEELCHAIR. BLOOD INFUSING TO RIGHT HAND. NO SIGNS OF REDDNESS OR IRRITATION. VSS. PT IS ALERT AND ORIENTED AND ABLE TO VERBALIZE NEEDS. NO S/S OF REACTION TO BLOOD AT THIS TIME. WILL MONITOR. SIDE RAILS ARE UPX 2. BED IS IN LOWEST POSITION. CALL LIGHT IS WITHIN REACH.
--- NOTE | 2017-02-21 20:15 | NUR ---
PRBC'S FINISHED AT THIS TIME. VSS. TUBE FLUSHING. NO S/S OF REACTION. WILL MONITOR. SIDE RAILS X 2. BED LOW. CALL LIGHT IN REACH.
--- NOTE | 2017-02-21 22:01 | NUR ---
PT LEFT FLOOR VIA WHEELCHAIR TO WAITING FAMILY MEMBER. NO REACTIONS TO BLOOD. IV D/C'D WITH CATHETER TIP INTACT.
== END 2017-02-21 22:03 | disposition home or self-care (01) ==
LOC: D.OPS 14:08 → D.MS 19:46 → D.OPS 22:03
DX: D64.9 Anemia, unspecified (principal)

== ENCOUNTER 2017-05-31 13:41 | Emergency (ER) | payer MEDICAID ==
[2017-02-21 15:07] VITALS: BMI 32.8
[~2017-05-31 13:41] MED LIST changes: +ADVAIR 500/501 DISK INH; +ZANTAC150 MG PO
== END 2017-05-31 15:35 | disposition home or self-care (01) ==
LOC: D.ER 13:41
DX: R51 Headache (principal); R11.10 Vomiting, unspecified; Z76.0 Encounter for issue of repeat prescription; J44.9 Chronic obstructive pulmonary disease, unspecified; Z95.0 Presence of cardiac pacemaker; J45.909 Unspecified asthma, uncomplicated

== ENCOUNTER 2017-07-15 13:59 | Emergency (ER) | payer MEDICAID ==
[2017-02-21 15:07] VITALS: BMI 32.8
[2017-07-15 14:39] LABS: BASOPHILS 0.3 % (0-2); EOSINOPHILS 2.6 % (0-7); HEMATOCRIT 32.2 % (36.0-48.0); HEMOGLOBIN 9.6 g/dL (12-16); IMMATURE GRANULOCYTES 0.1 % (0-5); LYMPHOCYTES 29.7 % (15-50); MCH 23.1 pg (26.0-34.0); MCHC 29.8 g/dL (31.0-37.0); MCV 77.6 fL (80.0-100.0); MEAN PLATELET VOLUME 9.4 fL (7.4-10.4); MONOCYTES 8.6 % (2-11); NEUTROPHILS 58.7 % (40-80); PLATELET COUNT 307 10x3/uL (130-400); RBC 4.15 10x6/uL (4.00-5.40); RDW 14.8 % (11.5-14.5); WBC 6.9 10x3/uL (4.8-10.8)
[2017-07-15 14:58] LABS: ALBUMIN 3.3 g/dL (3.4-5.0); ANION GAP 13.4 mmol/L (8-16); BILIRUBIN - TOTAL 0.51 mg/dL (0.2-1.3); CALCIUM 9.1 mg/dL (8.5-10.1); CARBON DIOXIDE 26.2 mmol/L (21.0-32.0); CREATININE - SERUM 1.2 mg/dL (0.6-1.3); POTASSIUM - SERUM 3.6 mmol/L (3.5-5.1); PROTEIN - SERUM 7.6 g/dL (6.4-8.2)
[2017-07-15 15:22] LABS: APPEARANCE CLEAR (CLEAR); BILIRUBIN NEGATIVE (NEGATIVE); COLOR YELLOW (YELLOW); GLUCOSE NEGATIVE (NEGATIVE); KETONE NEGATIVE (NEGATIVE); NITRITE NEGATIVE (NEGATIVE); PROTEIN NEGATIVE (NEGATIVE); UROBILINOGEN NORMAL (NORMAL)
== END 2017-07-15 16:15 | disposition home or self-care (01) ==
LOC: D.ER 13:59
PROVIDERS: Family Medicine
DX: M62.830 Muscle spasm of back (principal); J45.909 Unspecified asthma, uncomplicated

== ENCOUNTER 2017-07-19 17:35 | Emergency (ER) | payer MEDICAID ==
[2017-02-21 15:07] VITALS: BMI 32.8
== END 2017-07-19 19:28 | disposition home or self-care (01) ==
LOC: D.ER 17:35
DX: M54.9 Dorsalgia, unspecified (principal); M62.830 Muscle spasm of back; J44.1 Chronic obstructive pulmonary disease with (acute) exacerbation

== ENCOUNTER 2017-08-10 11:24 | Emergency (ER) | payer MEDICAID ==
[2017-02-21 15:07] VITALS: BMI 32.8
[2017-08-10 11:55] LABS: BASOPHILS 0.7 % (0-2); EOSINOPHILS 4.4 % (0-7); HEMATOCRIT 32.7 % (36.0-48.0); HEMOGLOBIN 9.7 g/dL (12-16); IMMATURE GRANULOCYTES 0.1 % (0-5); LYMPHOCYTES 35.1 % (15-50); MCH 22.7 pg (26.0-34.0); MCHC 29.7 g/dL (31.0-37.0); MCV 76.6 fL (80.0-100.0); MEAN PLATELET VOLUME 9.9 fL (7.4-10.4); MONOCYTES 8.1 % (2-11); NEUTROPHILS 51.6 % (40-80); PLATELET COUNT 328 10x3/uL (130-400); RBC 4.27 10x6/uL (4.00-5.40); RDW 15.3 % (11.5-14.5); WBC 6.8 10x3/uL (4.8-10.8)
[2017-08-10 12:10] LABS: ALBUMIN 3.4 g/dL (3.4-5.0); ALKALINE PHOSPHATASE 83 U/L (46-116); ALT (SGPT) 19 U/L (10-68); BILIRUBIN - TOTAL 0.36 mg/dL (0.2-1.3); CALC OSMOLALITY 279 mosm/kg (275-300); CARBON DIOXIDE 25.1 mmol/L (21.0-32.0); CHLORIDE - SERUM 104 mmol/L (98-107); CREATININE - SERUM 1.1 mg/dL (0.6-1.3); GLUCOSE 94 mg/dL (74-106); POTASSIUM - SERUM 3.4 mmol/L (3.5-5.1); PROTEIN - SERUM 7.6 g/dL (6.4-8.2); SODIUM 140 mmol/L (136-145); UREA NITROGEN 14 mg/dL (7-18); eGFR NON AFRICAN AMERICAN 54 mL/min (90-120)
[2017-08-10 12:20] LABS: CHOL - HDL RATIO 4.4 ratio (2.3-4.1); CHOLESTEROL, TOTAL 182 mg/dL (0-200); CKMB 0.6 U/L (0.0-3.6); CREATINE KINASE 89 UL (21-215); HDL CHOLESTEROL 41 mg/dL (32-96); LDL CHOLESTEROL 119 mg/dL (0-100); LDL-HDL RATIO 2.9 ratio (1.5-3.5); TRIGLYCERIDE 110 mg/dL (30-200); TROPONIN-I < 0.017 ng/mL (0.000-0.060)
== END 2017-08-10 14:30 | disposition home or self-care (01) ==
LOC: D.ER 11:24
PROVIDERS: Family Medicine
DX: F41.9 Anxiety disorder, unspecified (principal); J06.9 Acute upper respiratory infection, unspecified; J44.9 Chronic obstructive pulmonary disease, unspecified

== ENCOUNTER 2017-09-14 16:52 | Observation (INO) | payer MEDICAID ==
[~2017-09-14] VITALS: Ht 162.6 cm; Wt 87.7 kg
[2017-09-14 18:09] VITALS: BP 147/75; BMI 34.0
[2017-09-14 18:27] LABS: BASOPHILS 0.4 % (0-2); EOSINOPHILS 4.5 % (0-7); HEMATOCRIT 30.6 % (36.0-48.0); IMMATURE GRANULOCYTES 0.3 % (0-5); LYMPHOCYTES 42.4 % (15-50); MCH 22.2 pg (26.0-34.0); MCHC 29.4 g/dL (31.0-37.0); MCV 75.4 fL (80.0-100.0); MEAN PLATELET VOLUME 9.6 fL (7.4-10.4); MONOCYTES 7.7 % (2-11); NEUTROPHILS 44.7 % (40-80); PLATELET COUNT 344 10x3/uL (130-400); RBC 4.06 10x6/uL (4.00-5.40); RDW 15.9 % (11.5-14.5); WBC 6.7 10x3/uL (4.8-10.8)
[2017-09-14 18:47] LABS: ALBUMIN 3.4 g/dL (3.4-5.0); ALKALINE PHOSPHATASE 97 U/L (46-116); ALT (SGPT) 19 U/L (10-68); BILIRUBIN - TOTAL 0.14 mg/dL (0.2-1.3); CALC OSMOLALITY 281 mosm/kg (275-300); CALCIUM 8.6 mg/dL (8.5-10.1); CARBON DIOXIDE 25.2 mmol/L (21.0-32.0); CHLORIDE - SERUM 105 mmol/L (98-107); GLUCOSE 93 mg/dL (74-106); POTASSIUM - SERUM 3.6 mmol/L (3.5-5.1); PROTEIN - SERUM 6.9 g/dL (6.4-8.2); SODIUM 141 mmol/L (136-145); UREA NITROGEN 15 mg/dL (7-18); eGFR NON AFRICAN AMERICAN 60 mL/min (90-120)
[2017-09-14 19:10] LABS: CKMB 0.5 U/L (0.0-3.6); CREATINE KINASE 101 UL (21-215); TROPONIN-I < 0.017 ng/mL (0.000-0.060)
[2017-09-14 20:21] VITALS: BP 146/75
[2017-09-15 00:28] LABS: CKMB 0.5 U/L (0.0-3.6); CREATINE KINASE 91 UL (21-215)
[2017-09-15 00:29] LABS: TROPONIN-I < 0.017 ng/mL (0.000-0.060)
[2017-09-15 00:41] VITALS: BP 137/86
[2017-09-15 04:29] VITALS: BP 163/88
[2017-09-15 06:35] LABS: CKMB 0.5 U/L (0.0-3.6); CREATINE KINASE 78 UL (21-215)
[2017-09-15 06:45] LABS: TROPONIN-I < 0.017 ng/mL (0.000-0.060)
[2017-09-15 08:43] VITALS: BP 136/79
[2017-09-15 09:55] VITALS: Ht 162.6 cm; Wt 87.7 kg
[2017-09-15 13:05] VITALS: BP 134/75
== END 2017-09-15 15:54 | disposition home or self-care (01) ==
LOC: D.M2 16:52 → OBSVTIME 17:00 → D.M2 09-15 15:54
PROVIDERS: Emergency Medicine
DX: R07.89 Other chest pain (principal); J44.9 Chronic obstructive pulmonary disease, unspecified; F45.9 Somatoform disorder, unspecified; I10 Essential (primary) hypertension; Z95.0 Presence of cardiac pacemaker; E11.9 Type 2 diabetes mellitus without complications; Z86.73 Personal history of transient ischemic attack (TIA), and cerebral infarction without residual deficits

== ENCOUNTER 2017-10-23 11:00 | Emergency (ER) | payer MEDICAID ==
[2017-09-15 09:55] VITALS: BMI 34.0
== END 2017-10-23 13:13 | disposition left against medical advice (07) ==
LOC: D.ER 11:00
DX: R11.2 Nausea with vomiting, unspecified (principal)

== ENCOUNTER 2017-10-27 17:26 | Emergency (ER) | payer MEDICAID ==
[2017-09-15 09:55] VITALS: BMI 34.0
== END 2017-10-27 21:04 | disposition home or self-care (01) ==
LOC: D.ER 17:26
DX: E11.65 Type 2 diabetes mellitus with hyperglycemia (principal); K52.9 Noninfective gastroenteritis and colitis, unspecified; M54.5 Low back pain

== ENCOUNTER 2017-11-27 01:33 | Inpatient (IN) | payer MEDICARE ==
[~2017-11-27] VITALS: Ht 152.4 cm; Wt 88.5 kg
--- NOTE | ~2017-11-27 | CN ---
PATIENT NAME:HUSSEIN DURBIN MEDICAL RECORD: [id number] : 57 LOCATION:[address] ADMIT DATE: 11/27/17 ACCOUNT: [id number] CONSULTING PHYSICIAN: EDVIN MOE MD REFERRING PHYSICIAN: AMBROCIO POOLE MD DATE OF CONSULTATION: 11/27/2017 CONSULT REQUESTING PHYSICIAN: Orlando Reid MD REASON FOR CONSULTATION: Acute exacerbation of asthma, shortness of breath. HISTORY OF PRESENT ILLNESS: Ms. Durbin is a 62-year-old -Congolese female, very well known to me. The patient is sick for the last 2-3 days. She has coughing, wheezing, and shortness of breath. She has coughing with yellow color sputum production. She hear herself wheezing. She came into the ER for evaluation. She was found she has a left lower lobe pneumonia. PAST MEDICAL HISTORY: 1. Asthma. 2. Chronic obstructive pulmonary disease. 3. Gastroesophageal reflux disease. 4. Anxiety, depression. 5. Hypertension. 6. Atrial fibrillation. 7. Diabetes mellitus type 2. 8. History of CVA in 2011. PAST SURGICAL HISTORY: 1. Appendectomy. 2. Hysterectomy. 3. Status post dual chamber pacemaker placement in 2013. 3. Cardiac catheterization and angioplasty. ALLERGIES: SHE IS ALLERGIC TO LEVAQUIN, BUT SHE IS ON IV LEVAQUIN IN THE HOSPITAL AND HAD NO REACTION. SHE IS ALSO ALLERGIC TO PENICILLIN AND ASPIRIN. MEDICATIONS: She is on methylprednisolone IV, albuterol/ipratropium nebulizer, Levaquin IV. Her other medication is reviewed. PERSONAL AND SOCIAL HISTORY: The patient is a nonsmoker and nondrinker. She is a . Her in August last year. FAMILY HISTORY: Significant for cardiovascular disease. PHYSICAL EXAMINATION: GENERAL: Now, the patient is lying comfortably in bed. She is not in acute distress. VITAL SIGNS: Her pulse ox is 99% on 2 liters nasal cannula. HEENT: Conjunctivae is pink, sclerae nonicteric. NECK: Supple, no JVD. CHEST: There is prolonged expiration with wheezing. HEART: Rhythm regular, normal sound, no murmur. ABDOMEN: Soft. Bowel sounds present. No hepatosplenomegaly. RECTAL: Deferred. EXTREMITIES: No cyanosis, no clubbing, no pedal edema. CONSULT REPORT [id number] HUSSEIN DURBIN SKIN: Warm, normal turgor. CENTRAL NERVOUS SYSTEM: The patient is awake and alert. There is no obvious cranial nerve abnormality. The gait was not tested. CHEST RADIOGRAPH: There is infiltrate in left lower lobe. IMPRESSION: 1. Acute exacerbation of asthma, chronic obstructive pulmonary disease. 2. Acute hypoxic respiratory failure. 3. Asthma, chronic obstructive pulmonary disease overlap syndrome. 4. Pneumonia, left lower lobe, most likely community-acquired pneumonia. 5. Gastroesophageal reflux disease of severe degree. 6. Anemia. RECOMMENDATION: 1. Continue Levaquin. I will add Rocephin, methylprednisolone IV, Brovana/budesonide nebulizer, albuterol/ipratropium nebulizer. 2. Singulair 10 mg daily. 3. Antitussive. Supplemental oxygen as required. 4. Follow up labs and chest radiograph. Dr. Reid, thank you for involving me in the care of Ms. Durbin. TRANSINT:[id number] Voice Confirmation ID: [id number] DOCUMENT ID: [id number] EDVIN MOE MD at 1340 CC: FERNANDO ACEVEDO [id number] DICTATION DATE: 11/27/17 1602 CONTROL SYSTEMS TECHNICIAN: 11/27/17 1625 DIS IN 12/01/17 [facility] [address] [place] [address]
[2017-11-27 02:05] LABS: BASOPHILS 0.7 % (0-2); EOSINOPHILS 5.1 % (0-7); HEMATOCRIT 28.2 % (36.0-48.0); HEMOGLOBIN 8.1 g/dL (12-16); IMMATURE GRANULOCYTES 0.1 % (0-5); LYMPHOCYTES 35.6 % (15-50); MCH 21.7 pg (26.0-34.0); MCHC 28.7 g/dL (31.0-37.0); MCV 75.4 fL (80.0-100.0); MEAN PLATELET VOLUME 9.3 fL (7.4-10.4); MONOCYTES 7.8 % (2-11); NEUTROPHILS 50.7 % (40-80); PLATELET COUNT 327 10x3/uL (130-400); RBC 3.74 10x6/uL (4.00-5.40); RDW 16.6 % (11.5-14.5); WBC 7.7 10x3/uL (4.8-10.8)
[2017-11-27 02:13] LABS: ALKALINE PHOSPHATASE 89 U/L (46-116); ALT (SGPT) 14 U/L (10-68); BILIRUBIN - TOTAL 0.15 mg/dL (0.2-1.3); CALCIUM 8.9 mg/dL (8.5-10.1); CARBON DIOXIDE 23.7 mmol/L (21.0-32.0); CHLORIDE - SERUM 106 mmol/L (98-107); CREATININE - SERUM 1.1 mg/dL (0.6-1.3); POTASSIUM - SERUM 3.1 mmol/L (3.5-5.1); PROTEIN - SERUM 6.7 g/dL (6.4-8.2); SODIUM 140 mmol/L (136-145); UREA NITROGEN 10 mg/dL (7-18); eGFR NON AFRICAN AMERICAN 53 mL/min (90-120)
[2017-11-27 02:17] LABS: CALC OSMOLALITY 280 mosm/kg (275-300); GLUCOSE 154 mg/dL (74-106); TROPONIN-I < 0.017 ng/mL (0.000-0.060)
[2017-11-27 03:22] LABS: CKMB 0.9 U/L (0.0-3.6); CREATINE KINASE 108 UL (21-215)
[2017-11-28] VITALS: BP 154/74
[2017-11-28] MEDS ORDERED: PROTONIX40 MG PO (00:47)
[2017-11-28] MEDS ORDERED: GLUCOTROL XL 5 M5 MG PO (00:47)
[2017-11-28] MEDS ORDERED: COZAAR100 MG PO (00:47)
[2017-11-28 05:57] VITALS: BP 129/58
[2017-11-28 06:26] LABS: BASOPHILS 0 % (0-2); EOSINOPHILS 0 % (0-7); HEMATOCRIT 29.6 % (36.0-48.0); HEMOGLOBIN 8.6 g/dL (12-16); IMMATURE GRANULOCYTES 0.3 % (0-5); LYMPHOCYTES 6.4 % (15-50); MCH 21.4 pg (26.0-34.0); MCHC 29.1 g/dL (31.0-37.0); MCV 73.8 fL (80.0-100.0); MEAN PLATELET VOLUME 9.7 fL (7.4-10.4); MONOCYTES 2.5 % (2-11); NEUTROPHILS 90.8 % (40-80); PLATELET COUNT 371 10x3/uL (130-400); RBC 4.01 10x6/uL (4.00-5.40); RDW 16.9 % (11.5-14.5)
[2017-11-28 06:34] LABS: WBC 16.1 10x3/uL (4.8-10.8)
[2017-11-28 06:45] LABS: ALBUMIN 3.1 g/dL (3.4-5.0); ANION GAP 17.7 mmol/L (8-16); BILIRUBIN - TOTAL 0.2 mg/dL (0.2-1.3); CARBON DIOXIDE 20.1 mmol/L (21.0-32.0); CREATININE - SERUM 1.1 mg/dL (0.6-1.3); PROTEIN - SERUM 7.3 g/dL (6.4-8.2)
[2017-11-28 06:46] LABS: POTASSIUM - SERUM 3.8 mmol/L (3.5-5.1)
[2017-11-28 09:37] VITALS: BP 113/58
[2017-11-28 11:50] VITALS: BP 145/75
[2017-11-28 13:27] VITALS: Ht 152.4 cm; Wt 88.5 kg
[2017-11-28 18:00] LABS: CKMB 3.3 U/L (0.0-3.6); CREATINE KINASE 161 UL (21-215)
[2017-11-28 18:02] LABS: TROPONIN-I < 0.017 ng/mL (0.000-0.060)
[2017-11-28 20:00] VITALS: BP 117/49
[2017-11-28 22:59] LABS: CREATINE KINASE 147 UL (21-215)
[2017-11-28 23:01] LABS: TROPONIN-I < 0.017 ng/mL (0.000-0.060)
[2017-11-29 04:00] VITALS: BP 127/55
[2017-11-29 05:38] LABS: BASOPHILS 0 % (0-2); EOSINOPHILS 0 % (0-7); HEMATOCRIT 30.3 % (36.0-48.0); HEMOGLOBIN 8.9 g/dL (12-16); IMMATURE GRANULOCYTES 0.4 % (0-5); LYMPHOCYTES 5.4 % (15-50); MCH 21.9 pg (26.0-34.0); MCHC 29.4 g/dL (31.0-37.0); MCV 74.4 fL (80.0-100.0); MEAN PLATELET VOLUME 9.9 fL (7.4-10.4); MONOCYTES 2.3 % (2-11); NEUTROPHILS 91.9 % (40-80); PLATELET COUNT 371 10x3/uL (130-400); RBC 4.07 10x6/uL (4.00-5.40); RDW 17.1 % (11.5-14.5); WBC 16.4 10x3/uL (4.8-10.8)
[2017-11-29 06:09] LABS: ALBUMIN 3.1 g/dL (3.4-5.0); ALKALINE PHOSPHATASE 85 U/L (46-116); ALT (SGPT) 19 U/L (10-68); CALC OSMOLALITY 286 mosm/kg (275-300); CALCIUM 8.9 mg/dL (8.5-10.1); CARBON DIOXIDE 24.9 mmol/L (21.0-32.0); CHLORIDE - SERUM 103 mmol/L (98-107); CKMB 3.3 U/L (0.0-3.6); CREATINE KINASE 122 UL (21-215); CREATININE - SERUM 0.9 mg/dL (0.6-1.3); GLUCOSE 248 mg/dL (74-106); POTASSIUM - SERUM 3.7 mmol/L (3.5-5.1); PROTEIN - SERUM 7.2 g/dL (6.4-8.2); SODIUM 139 mmol/L (136-145); TROPONIN-I < 0.017 ng/mL (0.000-0.060); UREA NITROGEN 16 mg/dL (7-18); eGFR NON AFRICAN AMERICAN 67 mL/min (90-120)
[2017-11-29 08:37] VITALS: BP 158/85
[2017-11-29 12:35] VITALS: BP 119/54
[2017-11-29 16:35] VITALS: BP 121/55
[2017-11-29 21:41] VITALS: BP 125/69
[2017-11-30 00:41] VITALS: BP 131/73
[2017-11-30 05:32] VITALS: BP 129/62
[2017-11-30 06:34] LABS: BASOPHILS 0.1 % (0-2); EOSINOPHILS 0 % (0-7); HEMATOCRIT 29.2 % (36.0-48.0); HEMOGLOBIN 8.6 g/dL (12-16); IMMATURE GRANULOCYTES 0.6 % (0-5); LYMPHOCYTES 13.5 % (15-50); MCH 21.6 pg (26.0-34.0); MCHC 29.5 g/dL (31.0-37.0); MCV 73.4 fL (80.0-100.0); MEAN PLATELET VOLUME 9.8 fL (7.4-10.4); MONOCYTES 5.1 % (2-11); NEUTROPHILS 80.7 % (40-80); PLATELET COUNT 371 10x3/uL (130-400); RBC 3.98 10x6/uL (4.00-5.40); RDW 16.8 % (11.5-14.5); WBC 14.8 10x3/uL (4.8-10.8)
[2017-11-30 07:27] LABS: ALBUMIN 2.9 g/dL (3.4-5.0); ANION GAP 15.7 mmol/L (8-16); BILIRUBIN - TOTAL 0.2 mg/dL (0.2-1.3); CALCIUM 8.7 mg/dL (8.5-10.1); CARBON DIOXIDE 24.9 mmol/L (21.0-32.0); POTASSIUM - SERUM 3.6 mmol/L (3.5-5.1); PROTEIN - SERUM 6.9 g/dL (6.4-8.2)
[2017-11-30 07:33] VITALS: BP 158/81
[2017-11-30 11:31] VITALS: BP 184/88
[2017-11-30 15:56] VITALS: BP 174/83
[2017-11-30 20:00] VITALS: BP 130/65
[2017-12-01] VITALS: BP 128/66
[2017-12-01 05:47] LABS: BASOPHILS 0.1 % (0-2); EOSINOPHILS 0 % (0-7); HEMOGLOBIN 9.1 g/dL (12-16); IMMATURE GRANULOCYTES 0.8 % (0-5); LYMPHOCYTES 12.9 % (15-50); MCH 21.4 pg (26.0-34.0); MCHC 29.4 g/dL (31.0-37.0); MCV 72.9 fL (80.0-100.0); MEAN PLATELET VOLUME 9.6 fL (7.4-10.4); MONOCYTES 3.7 % (2-11); NEUTROPHILS 82.5 % (40-80); PLATELET COUNT 381 10x3/uL (130-400); RBC 4.25 10x6/uL (4.00-5.40); RDW 16.6 % (11.5-14.5); WBC 13.3 10x3/uL (4.8-10.8)
[2017-12-01 06:16] LABS: ANION GAP 14.4 mmol/L (8-16); BILIRUBIN - TOTAL 0.24 mg/dL (0.2-1.3); CALCIUM 9.2 mg/dL (8.5-10.1); CARBON DIOXIDE 26.2 mmol/L (21.0-32.0); POTASSIUM - SERUM 3.6 mmol/L (3.5-5.1); PROTEIN - SERUM 7.1 g/dL (6.4-8.2)
[2017-12-01 09:51] VITALS: BP 138/84
[2017-12-01 10:45] VITALS: BP 141/46
[2017-12-01] MEDS ORDERED: TESSALON PERLE100 MG PO (12:21)
[2017-12-01] MEDS ORDERED: MUCINEX600 MG PO (12:21)
[2017-12-01] MEDS ORDERED: FLORAJEN3 CAPS460 MG PO (12:21)
[2017-12-01] MEDS ORDERED: PREDNISONE10 MG PO (12:23)
[2017-12-01] MEDS ORDERED: OMNICEF300 MG PO (12:23)
== END 2017-12-01 15:03 | disposition home or self-care (01) | DRG 193 ==
LOC: OBSVTIME → D.OPS 01:33 → D.ER 01:33 → D.EDHOLD 06:36 → OBSVTIME 06:36 → D.ER 06:36 → D.EDHOLD 10:54 → D.M2 10:54 → EDSTATUS 15:33 → D.M2 23:01 → D.EDHOLD 23:01 → D.SDCHOLD 11-28 13:17 → D.M2 11-28 13:17
PROVIDERS: Family Medicine
DX: J18.9 Pneumonia, unspecified organism (principal); J96.01 Acute respiratory failure with hypoxia; J44.0 Chronic obstructive pulmonary disease with (acute) lower respiratory infection; J44.1 Chronic obstructive pulmonary disease with (acute) exacerbation; M35.1 Other overlap syndromes; J45.901 Unspecified asthma with (acute) exacerbation; D50.9 Iron deficiency anemia, unspecified; E11.65 Type 2 diabetes mellitus with hyperglycemia; I48.91 Unspecified atrial fibrillation; I10 Essential (primary) hypertension; F41.9 Anxiety disorder, unspecified; F32.9 Major depressive disorder, single episode, unspecified; K21.9 Gastro-esophageal reflux disease without esophagitis; Z95.0 Presence of cardiac pacemaker; Z86.73 Personal history of transient ischemic attack (TIA), and cerebral infarction without residual deficits; Z87.891 Personal history of nicotine dependence

== ENCOUNTER → 2018-01-29 10:43 | Outpatient (CLI) | payer MEDICARE ==
[2017-11-28 13:27] VITALS: BMI 37.7
[~2018-01-29 10:43] MED LIST changes: +COZAAR100 MG PO; +FLORAJEN3 CAPS460 MG PO; +GLUCOTROL XL 5 M5 MG PO; +MUCINEX600 MG PO; +OMNICEF300 MG PO; +TESSALON PERLE100 MG PO
== END | disposition home or self-care (01) ==
LOC: D.MAMMO 10:43
DX: Z12.31 Encounter for screening mammogram for malignant neoplasm of breast (principal)

== ENCOUNTER 2018-02-09 09:32 | Outpatient (CLI) | payer MEDICARE ==
[~2018-02-09] VITALS: Ht 162.6 cm; Wt 88.2 kg
[2018-02-09 12:54] VITALS: BP 155/65; Ht 162.6 cm; Wt 88.2 kg
== END 2018-02-09 16:40 | disposition home or self-care (01) ==
LOC: D.OPS 09:32
DX: D50.8 Other iron deficiency anemias (principal)

== ENCOUNTER 2018-04-26 15:10 | Emergency (ER) | payer MEDICARE ==
[~2018-04-26] VITALS: Ht 162.6 cm; Wt 87.7 kg
[2018-04-26 15:18] VITALS: Ht 162.6 cm; Wt 87.7 kg
[2018-04-26 16:08] LABS: ALBUMIN 3.4 g/dL (3.4-5.0); ANION GAP 14.2 mmol/L (8-16); BILIRUBIN - TOTAL 0.47 mg/dL (0.2-1.3); CARBON DIOXIDE 24.3 mmol/L (21.0-32.0); CREATININE - SERUM 1.2 mg/dL (0.6-1.3); POTASSIUM - SERUM 3.5 mmol/L (3.5-5.1); PROTEIN - SERUM 7.5 g/dL (6.4-8.2)
[2018-04-26] MEDS ORDERED: ROBAXIN500 MG PO (17:07)
[2018-04-26 17:56] VITALS: BP 134/82
== END 2018-04-26 17:14 | disposition home or self-care (01) ==
LOC: D.ER 15:10
PROVIDERS: Family Medicine
DX: M79.1 Myalgia (principal); Z86.73 Personal history of transient ischemic attack (TIA), and cerebral infarction without residual deficits; E11.9 Type 2 diabetes mellitus without complications; I10 Essential (primary) hypertension; Z95.0 Presence of cardiac pacemaker; Z86.79 Personal history of other diseases of the circulatory system; J44.9 Chronic obstructive pulmonary disease, unspecified; K21.9 Gastro-esophageal reflux disease without esophagitis

== ENCOUNTER 2018-05-08 11:48 | Outpatient (CLI) | payer OTHER ==
[~2018-05-08] VITALS: Ht 162.6 cm; Wt 87.3 kg
--- NOTE | ~2018-05-08 | HEMODYNAMI ---
PATIENT:HUSSEIN DURBIN MEDICAL RECORD: [id number] : 57 LOCATION:[facility] ADMISSION DATE: 05/08/18 Generatedon:05/08/201814:22 Patient name: HUSSEIN DURBIN Patient #: [id number] : 1955 Date of study: 05/08/2018 Page: Of Hemodynamic Procedure Report Patient Data Patient Demographics Procedure consent was obtained First Name: HUSSEIN Gender: Female Last Name: RAMAKRISHNA : 1955 Middle Initial: TOREY Age: 62 year(s) Patient #: [id number] Race: Black SSN: [id number] Additional ID: [id number] Contact details [address]: [address] [place] [address] State: [place] City: [place] Zip code: [address] Past Medical History Allergies Allergen Reaction Date Comments Reported Aspirin 06/03/2015 Penicillins 06/03/2015 Other allergy 08/08/2016 penicillin, aspirin Other allergy 05/08/2018 PCN, ASA, LEVAQUIN Admission Admission Data Admission Date: 05/08/2018 Admission Time: 11:48 Height (in.): 5.4 BSA: 0.32 (m2) Height (cm.): 13.72 BMI: 4605.15 (kg/m2) Weight (lbs.): 191 Weight (kg.): 86.64 Lab Results Lab Result Date: 05/08/2018 Lab Result Time: 0:00 Biochemistry Name Units Result Min Max BUN mg/dl 14 --(--*-)-- 7 18 Creatinine mg/dl 1 --(--*-)-- 0.6 1.3 CBC Name Units Result Min Max Hemoglobin g/dl 10.8 *-(----)-- 13.5 17.5 Procedure Procedure Types Cath Procedure Diagnostic Procedure Sedation Charges Moderate Sedation up to 15 minutes Peripheral Cath Diagnostic Procedure Cath Peripheral Dtylc-Xbwiqvw-Kdo-Off Procedure Description Procedure Date Procedure Date: 05/08/2018 Procedure Start Time: 14:00 Procedure End Time: 14:20 Procedure Staff Name Function Guillermo Emery MD Performing Physician Joni Waddell RN Nurse Sita Barriga RT Scrub Vin Calles RT Monitor Procedure Data Cath Procedure Fluoroscopy Diagnostic fluoroscopy Total fluoroscopy Time: 1.1 time: 1.1 min min Diagnostic fluoroscopy Total fluoroscopy dose: 173 dose: 173 mGy mGy Contrast Material Contrast Material Type Amount (ml) Isovue 300 65 Entry Location Entry Primary Successful Side Size Upsize Upsize Entry Closure Succes sful Closure Location (Fr) 1 (Fr) 2 (Fr) Remarks Device Remarks Femoral Left 5 Fr Exoseal artery Estimated blood loss: 5 ml Diagnostic catheters Device Type Used For End Catheter Placement DIAGNOSTIC UF 5Fr Procedure catheter ([id number]) Procedure Complications No complications Procedure Medications Medication Administration Route Dosage 0.9% NaCl I.V. 100 ml/hr Oxygen etCO2 Nasal cannula 2 l/min Heparin Flush Bag added to field 2 bags (1000units/500ml NS) Lidocaine 2% added to field 20 Versed I.V. 2 mg Fentanyl I.V. 100 mcg Versed I.V. 1 mg Hemodynamics Rest BSA: 0.32 (m2) HGB: 10.8 (g/dl) O2 Consumption: Estimated: 29.37 (ml/min) O2 Con sumption indexed: Estimated:91.78 (ml/min/m) Heart Rate: 63 (bpm) Pressure Samples Time Site Value (mmHg) Purpose Heart Use Rate(bpm) 14:04 AO 148/66(96) Snapshot 85 Snapshots Pre Cath Intra NCS Post Cath Vital Signs Time Heart Resp SPO2 etCO2 NIBP (mmHg) Rhythm Pain Sedation Rate (ipm) (%) (mmHg) Status Level (bpm) 13:43:37 82 16 100 36.8 174/100(140) NSR 0 (11) 10(A) , No pain 13:48:28 89 16 100 37.5 150/91(126) NSR 0 (11) 10(A) , No pain 13:53:15 90 15 100 40.6 144/88(122) NSR 0 (11) 10(A) , No pain 13:57:57 90 14 100 44.3 128/84(106) NSR 0 (11) 10(A) , No pain 14:02:40 81 15 98 36 123/82(106) NSR 0 (11) 10(A) , No pain 14:07:23 91 14 98 40.5 123/78(102) NSR 0 (11) 9(A) , No pain 14:12:01 90 16 98 39.8 124/79(97) NSR 0 (11) 9(A) , No pain 14:16:42 89 21 99 36 138/83(110) NSR 0 (11) 9(A) , No pain Medications Time Medication Route Dose Verified Delivered Reason Notes Eff ectiveness by by 13:48:21 0.9% NaCl I.V. 100 Joni Joni Per ml/hr Lorigan Michelleigan physician RN RN 13:48:39 Oxygen etCO2 2 Joni Joni Per Nasal l/min Lorlyndon Martinezigan physician cannula RN RN 13:48:51 Heparin Flush added 2 Joni Joni used for Bag to bags Lorigan Michelleigan procedure (1000units/500ml field RN RN NS) 13:49:01 Lidocaine 2% added 20ml Joni Joni for local to vial Lorigan Lorigan anesthetic field RN RN 13:55:22 Versed I.V. 2 mg Joni Joni for Lorigan Lorigan sedation RN RN 13:55:34 Fentanyl I.V. 100 Joni Joni for mcg Lorigan Lorigan sedation RN RN 14:01:27 Versed I.V. 1 mg Joni Joni for Lorigan Lorigan sedation RN non food receiving clerk Log Time Note 12:58:35 Time tracking: Regular hours (M-F 7:00 - 5:00) 12:58:40 Plan of Care:Hemodynamics will remain stable., Cardiac rhythm will remain stable., Comfort level will be maintained., Respiratory function will remain adequate., Patient/ family verbilizes understanding of procedure., Procedure tolerated without complication., Recovers from procedure without complications.. 12:58:42 Signed procedure consent form obtained from patient. 12:59:09 H&P Date Dictated: 04/30/2018 Within 30 days and on chart., H&P Addendum completed by physician on day of procedure. (MUST COMPLETE FOR ALL OUTPATIENTS). 13:00:22 Lab Result : BUN 14 mg/dl 13:00:22 Lab Result : Hemoglobin 10.8 g/dl 13:00:22 Lab Result : Creatinine 1 mg/dl 13:00:45 Patient allergic to Other allergyPCN, ASA, LEVAQUIN 13:03:02 Patient Height : 5.4 inches 13:03:06 Patient Weight : 191 lbs 13:24:23 Sita Barriga RT(R) sent for patient. Start room use. 13:33:12 Patient received from Pre/Post Procedure Room to CCL 1 Alert and oriented. Tansferred to table in Supine position. 13:33:13 Warm blankets applied, and brandin hugger turned on for patient comfort. 13:33:14 Correct patient and procedure confirmed by team. 13:33:16 ECG and BP/O2 sat monitors applied to patient. 13:42:32 Vital chart was started 13:42:33 Baseline sample Acquired. 13:42:36 Rhythm: sinus rhythm 13:42:38 Full Disclosure recording started 13:43:09 Baseline sample Acquired. 13:43:11 Pre-procedure instructions explained to patient. 13:43:12 Pre-op teaching completed and patient verbalized understanding. 13:43:13 Family in waiting room. 13:43:14 Patient NPO since Midnight. 13:43:17 Is the patient allergic to Iodine/contrast media? No. 13:43:19 Is patient on blood thinner?No 13:43:20 Patient diabetic? Yes. 13:43:21 If diabetic: On Metformin? Yes 13:43:25 If on Metformin: Last Dose? 05/08/2018 13:43:28 Previous problem with sedation/anesthesia? No ? 13:43:29 Snore? No 13:43:30 Sleep apnea? No 13:43:30 Deviated septum? No 13:43:31 Opens mouth fully? Yes 13:43:32 Sticks out tongue? Yes 13:43:37 Airway obstruction? Yes COPD ASTHMA 13:43:40 Dentures? No ? 13:43:43 Pre procedure: right dorsailis pedis pulse 2+ Normal; easily identifiable; not easily obliterated 13:43:46 Pre procedure: left dorsailis pedis pulse 2+ Normal; easily identifiable; not easily obliterated 13:43:48 Patient pain scale 0/10 ?. 13:44:01 IV patent on arrival in right antecubital with 0.9% NaCl at O. 13:44:03 Lab results completed and on chart. 13:44:10 Bilateral groins area was prepped with chlora-prep and draped in sterile fashion 13:44:11 Alarms reviewed by R. N. 13:44:12 Sharps counted by scrub and verified by R.N. 13:44:15 ACIST Syringe (31785) opened to sterile field. 13:44:17 Bag Decanter (2002S) opened to sterile field. 13:44:17 Medline Cath Pack ([id number]) opened to sterile field. 13:44:19 ACIST Hand Control (41933) opened to sterile field. 13:44:19 ACIST Manifold (84265) opened to sterile field. 13:44:20 Tegaderm 4 x 4 (1626W) opened to sterile field. 13:44:29 DIAGNOSTIC WIRE .035 260cm J wire (930093) opened to sterile field. 13:44:48 SHEATH Prelude 5Fr 0.035 (VOZ-3J-10-035) opened to sterile field. 13:47:55 Zero performed for pressure channel P1 13:48:21 0.9% NaCl 100 ml/hr I.V. was administered by Joni Waddell RN; Per physician; 13:48:39 Oxygen 2 l/min etCO2 Nasal cannula was administered by Joni Waddell RN; Per physician; 13:48:51 Heparin Flush Bag (1000units/500ml NS) 2 bags added to field was administered by Joni Waddell RN; used for procedure; 13:49:01 Lidocaine 2% 20ml vial added to field was administered by Joni Waddell RN; for local anesthetic; 13:54:14 Physician arrived 13:54:15 --------ALL STOP TIME OUT------ 13:54:15 Final Timeout: patient, procedure, and site verified with staff and physician. All members of the team are in agreement. 13:54:16 Bilateral groins site verified by team. 13:54:18 Physical assessment completed. ASA score P 2 - A patient with mild systemic disease as per Guillermo Emery MD. 13:54:21 Sedation plan: IV Moderate Sedation Medication:Versed, Fentanyl 13:55:22 Versed 2 mg I.V. was administered by Joni Waddell RN; for sedation; 13:55:34 Fentanyl 100 mcg I.V. was administered by Joni Lorigan RN; for sedation; 14:00:16 Procedure started. 14:00:20 Local anesthetic to left femerol artery with Lidocaine 2% by Guillermo Emery MD.INITIAL ACCESS ONLY 14:01:27 Versed 1 mg I.V. was administered by Joni Waddell RN; for sedation; 14:02:31 A 5 Fr sheath was inserted into the Left Femoral artery 14:02:42 A DIAGNOSTIC UF 5Fr catheter ([id number]) was advanced over the wire and used for Procedure. 14:04:33 Abdominal angiogram w/ runoff was performed. 14:05:24 Left leg runoff performed. 14:06:37 Right leg runoff performed. 14:11:45 Catheter removed. 14:12:03 EXOSEAL 5Fr (EX500) opened to sterile field. 14:12:12 Sheath removed intact; hemostasis achieved with Exoseal to the Left Femoral artery. 14:12:14 Procedure ended.(Physican Out) 14:13:50 Fluoroscopy time 01.10 minutes. 14:13:53 Fluoroscopy dose: 173 mGy 14:13:53 Flurop Dose total: 173 14:15:38 Contrast amount:Isovue 300 65ml. 14:15:44 Sharps counted by scrub and verified by R.N. 14:17:32 Insertion/operative site no bleeding no hematoma. 14:17:37 Post-op/insertion site Left Femoral artery dressed using a 4 x 4 and Tegaderm. 14:17:41 Post left femerol artery:stable, soft, clean and dry 14:17:44 Post Procedure Pulses reassessed and unchanged 14:17:47 Post-procedure physical assessment completed. ASA score P 2 - A patient with mild systemic disease as per Guillermo Emery MD. 14:17:57 Post procedure rhythm: unchanged. 14:18:01 Estimated blood loss: 5 ml 14:18:02 Post procedure instruction explained to patient.Patient verbalizes understanding. 14:18:08 Patient needs reinforcement of post procedure teaching. 14:18:33 Procedure type changed to Cath procedure, Diagnostic procedure, Sedation Charges, Moderate Sedation up to 15 minutes, Peripheral Cath Diagnostic Procedure, Cath Peripheral, Lhaju-Azoqycv-Jnm-Off 14:20:35 Procedure and supply charges have been captured, reviewed, submitted and are correct. 14:20:37 Procedure Complication : No complications 14:20:41 Vital chart was stopped 14:20:42 See physician's report for complete and final results. 14:20:44 Report given to Pre/Post Procedure Room. 14:20:51 Patient transfered to Pre/Post Procedure Room with Stretcher. 14:20:57 Procedure ended. 14:20:57 Full Disclosure recording stopped 14:21:01 End room use (Document Last) Device Usage Item Name Manufacture Quantity Catalog Number Hospital Part Current M inimal Lot# / Charge Number Stock Stock Serial# Code ACIST Syringe Acist 1 59296 085241 681481 577827 2 0 (95080) [employer] Bag Decanter Microtek 1 2001S 496404 53603 946567 5 (2001S) Medical Inc. Medline Cath Cardinal 1 [id number] 887003 38071 429463 5 Pack Health ([id number]) ACIST Hand Acist 1 67149 057280 143388 076333 5 Control (49679) [employer] ACIST Manifold Acist 1 61519 211352 161224 149346 5 (00049) [employer] Tegaderm 4 x 4 3M 1 1626W 129416 571434 835041 5 (1626W) DIAGNOSTIC WIRE [place] 1 740241 265893 455551 182674 3 0 .035 260cm J wire (620434) SHEATH Prelude Merit 1 [id number]-3H-12-035 738516 259811 994489 5 5Fr 0.035 Medical (MLL-3L-90-035) DIAGNOSTIC UF Cardinal 1 [id number] 857545 513145 122060 1 0 5Fr catheter Health (552177W3) EXOSEAL 5Fr Cardinal 1 EX500 744543 375968 303026 1 0 (EX500) Health Signature Audit [place] Stage Time Signature Unsigned Intra-Procedure 05/08/2018 Vin Calles 2:22:15 PM RT(R) Signatures Monitor : Vin Calles RT Signature : Date : Time : [address] [address]
[~2018-05-08 11:48] MED LIST changes: +ROBAXIN500 MG PO
[2018-05-08] MEDS ORDERED: GLUCOTROL XL 5 M5 MG PO (12:03)
[2018-05-08] MEDS ORDERED: CELEXA20 MG PO (12:05)
[2018-05-08] MEDS ORDERED: KLONOPIN1 MG PO (12:05)
[2018-05-08 12:13] VITALS: BP 132/60; Ht 162.6 cm; Wt 87.3 kg
[2018-05-08 12:36] LABS: BASOPHILS 0.7 % (0-2); EOSINOPHILS 0.5 % (0-7); HEMOGLOBIN 10.8 g/dL (12-16); IMMATURE GRANULOCYTES 0.2 % (0-5); LYMPHOCYTES 21.3 % (15-50); MCH 24.9 pg (26.0-34.0); MCHC 30.9 g/dL (31.0-37.0); MCV 80.6 fL (80.0-100.0); MEAN PLATELET VOLUME 9.9 fL (7.4-10.4); MONOCYTES 2.6 % (2-11); NEUTROPHILS 74.7 % (40-80); PLATELET COUNT 329 10x3/uL (130-400); RBC 4.34 10x6/uL (4.00-5.40); RDW 18.1 % (11.5-14.5); WBC 6.1 10x3/uL (4.8-10.8)
[2018-05-08 12:44] LABS: ANION GAP 14.3 mmol/L (8-16); CALCIUM 8.9 mg/dL (8.5-10.1); CARBON DIOXIDE 25.2 mmol/L (21.0-32.0); POTASSIUM - SERUM 4.5 mmol/L (3.5-5.1)
== END 2018-05-08 17:30 ==
LOC: D.CATH 11:48
PROVIDERS: Internal Medicine Cardiovascular Disease
DX: I70.213 Atherosclerosis of native arteries of extremities with intermittent claudication, bilateral legs (principal); Z01.812 Encounter for preprocedural laboratory examination

== ENCOUNTER 2018-08-30 17:45 | Emergency (ER) | payer OTHER ==
[~2018-08-30] VITALS: Ht 162.6 cm; Wt 90.0 kg
[2018-08-30 18:00] VITALS: Ht 162.6 cm; Wt 90.0 kg
[2018-08-30] MEDS ORDERED: PEPCID AC20 MG PO (20:28)
[2018-08-30 21:03] VITALS: BP 160/91
== END 2018-08-30 21:04 | disposition home or self-care (01) ==
LOC: D.ER 17:45
DX: T78.40XA Allergy, unspecified, initial encounter (principal); X58.XXXA Exposure to other specified factors, initial encounter; L50.9 Urticaria, unspecified; E11.9 Type 2 diabetes mellitus without complications; I10 Essential (primary) hypertension; J44.9 Chronic obstructive pulmonary disease, unspecified

== ENCOUNTER 2018-09-23 19:00 | Emergency (ER) | payer OTHER ==
[~2018-09-23] VITALS: Ht 162.6 cm; Wt 89.8 kg
[~2018-09-23 19:00] MED LIST changes: +PEPCID AC20 MG PO
[2018-09-23 19:10] VITALS: Ht 162.6 cm; Wt 89.8 kg
[2018-09-23] MEDS ORDERED: VISTARIL50 MG PO (20:07)
[2018-09-23 20:40] VITALS: BP 129/67
== END 2018-09-23 20:40 | disposition home or self-care (01) ==
LOC: D.ER 19:00
DX: T78.40XA Allergy, unspecified, initial encounter (principal); X58.XXXA Exposure to other specified factors, initial encounter; E11.9 Type 2 diabetes mellitus without complications; I10 Essential (primary) hypertension; J44.9 Chronic obstructive pulmonary disease, unspecified

== ENCOUNTER 2018-10-24 19:28 | Emergency (ER) | payer OTHER ==
[~2018-10-24] VITALS: Ht 162.6 cm; Wt 88.2 kg
[~2018-10-24 19:28] MED LIST changes: +VISTARIL50 MG PO
[2018-10-24 19:35] VITALS: Ht 162.6 cm; Wt 88.2 kg
[2018-10-24 20:08] LABS: APPEARANCE CLEAR (CLEAR); BILIRUBIN NEGATIVE (NEGATIVE); COLOR YELLOW (YELLOW); GLUCOSE NEGATIVE (NEGATIVE); KETONE NEGATIVE (NEGATIVE); NITRITE NEGATIVE (NEGATIVE); PROTEIN NEGATIVE (NEGATIVE); UROBILINOGEN NORMAL (NORMAL)
[2018-10-24 20:31] LABS: BASOPHILS 0.6 % (0-2); HEMATOCRIT 27.5 % (36.0-48.0); IMMATURE GRANULOCYTES 0.2 % (0-5); LYMPHOCYTES 44.8 % (15-50); MCH 21.2 pg (26.0-34.0); MCHC 29.1 g/dL (31.0-37.0); MCV 72.9 fL (80.0-100.0); MEAN PLATELET VOLUME 9.3 fL (7.4-10.4); MONOCYTES 8.3 % (2-11); NEUTROPHILS 42.1 % (40-80); PLATELET COUNT 333 10x3/uL (130-400); RBC 3.77 10x6/uL (4.00-5.40); RDW 17.9 % (11.5-14.5); WBC 6.5 10x3/uL (4.8-10.8)
[2018-10-24 20:51] LABS: ALKALINE PHOSPHATASE 87 U/L (46-116); ALT (SGPT) 18 U/L (10-68); BILIRUBIN - TOTAL 0.19 mg/dL (0.2-1.3); CALC OSMOLALITY 284 mosm/kg (275-300); CALCIUM 8.6 mg/dL (8.5-10.1); CARBON DIOXIDE 26.5 mmol/L (21.0-32.0); CHLORIDE - SERUM 105 mmol/L (98-107); GLUCOSE 149 mg/dL (74-106); POTASSIUM - SERUM 3.6 mmol/L (3.5-5.1); PROTEIN - SERUM 6.8 g/dL (6.4-8.2); SODIUM 141 mmol/L (136-145); UREA NITROGEN 14 mg/dL (7-18); eGFR NON AFRICAN AMERICAN 59 mL/min (90-120)
[2018-10-24 20:55] LABS: AMYLASE - SERUM 101 U/L (25-115); LIPASE 193 U/L (73-393)
[2018-10-24 21:16] LABS: TROPONIN-I < 0.017 ng/mL (0.000-0.060)
[2018-10-24 23:58] VITALS: BP 148/81
== END 2018-10-24 23:59 | disposition home or self-care (01) ==
LOC: D.ER 19:28
PROVIDERS: Family Medicine
DX: R10.32 Left lower quadrant pain (principal); D64.9 Anemia, unspecified; J44.9 Chronic obstructive pulmonary disease, unspecified; E11.9 Type 2 diabetes mellitus without complications; I10 Essential (primary) hypertension; R11.2 Nausea with vomiting, unspecified

== ENCOUNTER 2018-12-10 12:34 | Emergency (ER) | payer OTHER ==
[2018-12-10 12:44] VITALS: Ht 162.6 cm
[2018-12-10 14:22] LABS: APPEARANCE CLEAR (CLEAR); COLOR STRAW (YELLOW)
[2018-12-10 14:23] LABS: BILIRUBIN NEGATIVE (NEGATIVE); GLUCOSE NEGATIVE (NEGATIVE); KETONE NEGATIVE (NEGATIVE); NITRITE NEGATIVE (NEGATIVE); PROTEIN NEGATIVE (NEGATIVE); UROBILINOGEN NORMAL (NORMAL)
[2018-12-10 15:31] LABS: BASOPHILS 0.5 % (0-2); EOSINOPHILS 5.1 % (0-7); HEMATOCRIT 25.9 % (36.0-48.0); IMMATURE GRANULOCYTES 0.2 % (0-5); LYMPHOCYTES 44.4 % (15-50); MCHC 28.2 g/dL (31.0-37.0); MCV 70.4 fL (80.0-100.0); MEAN PLATELET VOLUME 9.1 fL (7.4-10.4); MONOCYTES 5.8 % (2-11); PLATELET COUNT 361 10x3/uL (130-400); RBC 3.68 10x6/uL (4.00-5.40); RDW 16.3 % (11.5-14.5); WBC 5.7 10x3/uL (4.8-10.8)
[2018-12-10 15:34] LABS: HEMOGLOBIN 7.3 g/dL (12-16); MCH 19.8 pg (26.0-34.0)
[2018-12-10 15:41] LABS: APTT 28.5 SECONDS (22.8-39.4); INR 1.04 (0.85-1.17); PROTIME 13.1 SECONDS (11.6-15.0)
[2018-12-10 15:48] LABS: ALBUMIN 3.4 g/dL (3.4-5.0); ALKALINE PHOSPHATASE 113 U/L (46-116); ALT (SGPT) 15 U/L (10-68); BILIRUBIN - TOTAL 0.28 mg/dL (0.2-1.3); CALC OSMOLALITY 279 mosm/kg (275-300); CALCIUM 8.7 mg/dL (8.5-10.1); CHLORIDE - SERUM 103 mmol/L (98-107); CREATININE - SERUM 0.9 mg/dL (0.6-1.3); GLUCOSE 105 mg/dL (74-106); POTASSIUM - SERUM 3.2 mmol/L (3.5-5.1); PROTEIN - SERUM 7.8 g/dL (6.4-8.2); SODIUM 141 mmol/L (136-145); UREA NITROGEN 10 mg/dL (7-18); eGFR NON AFRICAN AMERICAN 67 mL/min (90-120)
[2018-12-10 16:01] LABS: CKMB 0.6 U/L (0.0-3.6); CREATINE KINASE 84 UL (21-215); PRO BNP 303 pg/mL (0-125); TROPONIN-I < 0.017 ng/mL (0.000-0.060)
[2018-12-10] MEDS ORDERED: STERAPRED DS 1210 MG PO (16:25)
[2018-12-10 17:26] VITALS: BP 182/81
== END 2018-12-10 16:53 | disposition home or self-care (01) ==
LOC: D.ER 12:34
PROVIDERS: Emergency Medicine
DX: J44.1 Chronic obstructive pulmonary disease with (acute) exacerbation (principal); R09.89 Other specified symptoms and signs involving the circulatory and respiratory systems

== ENCOUNTER 2019-01-31 19:30 | Emergency (ER) | payer MEDICARE, MEDICAID ==
[~2019-01-31] VITALS: Ht 162.6 cm; Wt 88.2 kg
[~2019-01-31 19:30] MED LIST changes: +STERAPRED DS 1210 MG PO
[2019-01-31 20:07] VITALS: Ht 162.6 cm; Wt 88.2 kg
[2019-01-31 20:40] LABS: BASOPHILS 0.5 % (0-2); EOSINOPHILS 1.2 % (0-7); HEMATOCRIT 25.2 % (36.0-48.0); IMMATURE GRANULOCYTES 0.2 % (0-5); LYMPHOCYTES 33.1 % (15-50); MCHC 27.8 g/dL (31.0-37.0); MCV 66.8 fL (80.0-100.0); MONOCYTES 12.7 % (2-11); NEUTROPHILS 52.3 % (40-80); RBC 3.77 10x6/uL (4.00-5.40); RDW 17.4 % (11.5-14.5); WBC 8.2 10x3/uL (4.8-10.8)
[2019-01-31 20:41] LABS: APTT 23.5 SECONDS (22.8-39.4)
[2019-01-31 20:42] LABS: INR 1.04 (0.85-1.17); PROTIME 13.1 SECONDS (11.6-15.0)
[2019-01-31 20:45] LABS: MCH 18.6 pg (26.0-34.0); PLATELET COUNT 435 10x3/uL (130-400)
[2019-01-31 20:56] LABS: ALBUMIN 3.3 g/dL (3.4-5.0); ALKALINE PHOSPHATASE 99 U/L (46-116); ALT (SGPT) 17 U/L (10-68); BILIRUBIN - TOTAL 0.23 mg/dL (0.2-1.3); CALCIUM 8.9 mg/dL (8.5-10.1); CARBON DIOXIDE 22.6 mmol/L (21.0-32.0); CHLORIDE - SERUM 105 mmol/L (98-107); POTASSIUM - SERUM 4.2 mmol/L (3.5-5.1); PROTEIN - SERUM 7.5 g/dL (6.4-8.2); SODIUM 138 mmol/L (136-145); UREA NITROGEN 15 mg/dL (7-18); eGFR NON AFRICAN AMERICAN 59 mL/min (90-120)
[2019-01-31 20:58] LABS: CALC OSMOLALITY 279 mosm/kg (275-300); GLUCOSE 159 mg/dL (74-106); TROPONIN-I < 0.017 ng/mL (0.000-0.060)
[2019-02-01] MEDS ORDERED: NEURONTIN 300300 MG PO (00:26)
[2019-02-01 00:49] VITALS: BP 163/73
== END 2019-02-01 00:48 | disposition home or self-care (01) ==
LOC: D.ER 19:30
PROVIDERS: Emergency Medicine
DX: R20.2 Paresthesia of skin (principal); M54.2 Cervicalgia; M50.30 Other cervical disc degeneration, unspecified cervical region

== ENCOUNTER 2019-03-06 09:00 | Outpatient (CLI) | payer MEDICARE, MEDICAID ==
[2019-01-31 20:07] VITALS: BMI 33.3
[~2019-03-06 09:00] MED LIST changes: +NEURONTIN 300300 MG PO
== END 2019-03-06 09:30 | disposition home or self-care (01) ==
LOC: D.MAMMO 09:00
PROVIDERS: ATTEND Family Medicine
DX: R92.8 Other abnormal and inconclusive findings on diagnostic imaging of breast (principal)

== ENCOUNTER 2019-03-13 18:32 | Inpatient (IN) | payer MEDICARE, MEDICAID ==
[~2019-03-13] VITALS: Ht 162.6 cm; Wt 88.2 kg
[2019-03-13 19:25] LABS: BASOPHILS 0.4 % (0-2); EOSINOPHILS 4.1 % (0-7); IMMATURE GRANULOCYTES 0.1 % (0-5); LYMPHOCYTES 30.5 % (15-50); MCV 64.5 fL (80.0-100.0); MEAN PLATELET VOLUME 8.9 fL (7.4-10.4); MONOCYTES 8.7 % (2-11); NEUTROPHILS 56.2 % (40-80); PLATELET COUNT 372 10x3/uL (130-400); RDW 18.4 % (11.5-14.5)
[2019-03-13 19:28] LABS: APTT 28.8 SECONDS (22.8-39.4); INR 1.11 (0.85-1.17); PROTIME 13.8 SECONDS (11.6-15.0)
[2019-03-13 19:31] LABS: ALBUMIN 3.2 g/dL (3.4-5.0); ALKALINE PHOSPHATASE 98 U/L (46-116); ALT (SGPT) 13 U/L (10-68); BILIRUBIN - TOTAL 0.26 mg/dL (0.2-1.3); CALCIUM 8.5 mg/dL (8.5-10.1); CARBON DIOXIDE 28.5 mmol/L (21.0-32.0); CHLORIDE - SERUM 105 mmol/L (98-107); CREATININE - SERUM 1.1 mg/dL (0.6-1.3); POTASSIUM - SERUM 3.8 mmol/L (3.5-5.1); PROTEIN - SERUM 7.4 g/dL (6.4-8.2); SODIUM 141 mmol/L (136-145); UREA NITROGEN 13 mg/dL (7-18); eGFR NON AFRICAN AMERICAN 53 mL/min (90-120)
--- NOTE | 2019-03-13 19:34 | NUR ---
1ST NITRO AT THIS TIME. CP RATED 9/10. WILL RECHECK IN 5 MINUTES
[2019-03-13 19:46] LABS: CKMB 0.1 U/L (0.0-3.6); CREATINE KINASE 41 UL (21-215); MAGNESIUM - SERUM 2.1 mg/dL (1.8-2.4)
--- NOTE | 2019-03-13 19:49 | NUR ---
2ND NITRO. PT RATES CP AT THIS TIME AT 6/10
[2019-03-13 19:50] LABS: CALC OSMOLALITY 281 mosm/kg (275-300); GLUCOSE 111 mg/dL (74-106); TROPONIN-I < 0.017 ng/mL (0.000-0.060)
--- NOTE | 2019-03-13 20:04 | NUR ---
CP 03/04. 3RD NITRO AT THIS TIME
[2019-03-13 20:22] LABS: HEMOGLOBIN 5.4 g/dL (12-16); MCH 17.4 pg (26.0-34.0)
--- NOTE | 2019-03-13 20:30 | NUR ---
NOTIDIED EDP ANDREW OF [facility] OF 5.4 AND 20.0. VERBAL ORDER GIVEN FOR TYPE AND SCREEN 2 UNITS
[2019-03-13 20:43] VITALS: BP 176/77
--- NOTE | 2019-03-13 22:30 | NUR ---
PT TO THE FLOOR. ASSISTED PT TO GET SETTLED INTO ROOM. PT ASKED FOR SOME ICE CREAM, SHE IS HUNGRY. NO OHTER NEEDS AT THIS TIME CALL LIGHT WITHIN REACH.
[2019-03-13 23:12] VITALS: BP 160/74; BMI 32.7
[2019-03-14] VITALS (7 sets, daily range): BP systolic 113–177; BP diastolic 64–89; Ht 162.6 cm; Wt 88.2 kg
--- NOTE | 2019-03-14 02:27 | NUR ---
PT RECIEVING SECOND UNIT OF PRBC AND STATES SHE IS FEELING BETTER ALREADY. PT STATES SHE IS NO LONGER IN ANY PAIN. WELL CONTINUE TO MONITOR.
[2019-03-14 03:21] LABS: CALC OSMOLALITY 282 mosm/kg (275-300); CALCIUM 8.6 mg/dL (8.5-10.1); CARBON DIOXIDE 27.7 mmol/L (21.0-32.0); CHLORIDE - SERUM 106 mmol/L (98-107); CKMB 0.1 U/L (0.0-3.6); CREATINE KINASE 35 UL (21-215); GLUCOSE 136 mg/dL (74-106); MAGNESIUM - SERUM 2.1 mg/dL (1.8-2.4); PHOSPHOROUS 3.4 mg/dL (2.5-4.9); SODIUM 141 mmol/L (136-145); TROPONIN-I < 0.017 ng/mL (0.000-0.060); UREA NITROGEN 12 mg/dL (7-18); eGFR NON AFRICAN AMERICAN 59 mL/min (90-120)
[2019-03-14 06:50] LABS: BASOPHILS 0.4 % (0-2); EOSINOPHILS 3.7 % (0-7); IMMATURE GRANULOCYTES 0.3 % (0-5); LYMPHOCYTES 25.7 % (15-50); MCHC 28.2 g/dL (31.0-37.0); MEAN PLATELET VOLUME 9.2 fL (7.4-10.4); MONOCYTES 8.4 % (2-11); NEUTROPHILS 61.5 % (40-80); PLATELET COUNT 358 10x3/uL (130-400); RDW 23.2 % (11.5-14.5); WBC 7.9 10x3/uL (4.8-10.8)
[2019-03-14 07:21] LABS: HEMATOCRIT 26.2 % (36.0-48.0); HEMOGLOBIN 7.4 g/dL (12-16); MCV 70.8 fL (80.0-100.0)
[2019-03-14 08:34] LABS: CKMB 0.2 U/L (0.0-3.6); CREATINE KINASE 33 UL (21-215)
[2019-03-14 08:35] LABS: TROPONIN-I < 0.017 ng/mL (0.000-0.060)
--- NOTE | 2019-03-14 08:46 | NUR ---
PT RESTING IN BED. REQUESTS TO HAVE HER BLOOD SUGAR CHECKED DUE TO BEING LETHARGIC. FSBS 166. SHIFT ASSESSMENT PERFORMED. DENIES PAIN AT THIS TIME, DENIES ANY FURTHER NEEDS AT THIS TIME, WILL CONT TO FOLLOW POC
--- NOTE | 2019-03-14 12:03 | NUR ---
PT SITTING IN BED EATING LUNCH, FAMILY AT BEDSIDE, DENIES ANY NEEDS AT THIS TIME, WILL CONT TO FOLLOW POC
--- NOTE | 2019-03-14 13:27 | NUR ---
PT REQUEST PAIN MEDICATION OTHER THAN MORPHINE, SPOKE TO EARL MILIAN WHO GAVE NEW ORDER FOR NORCO 5/325 Q4HR PRN.
[2019-03-14 14:06] LABS: CKMB 0.4 U/L (0.0-3.6); CREATINE KINASE 30 UL (21-215); TROPONIN-I < 0.017 ng/mL (0.000-0.060)
[2019-03-14 14:12] LABS: HEMATOCRIT 25.2 % (36.0-48.0)
[2019-03-14 14:18] LABS: HEMOGLOBIN 7.3 g/dL (12-16)
--- NOTE | 2019-03-14 14:29 | NUR ---
PT HBG CAME BACK 7.3. NOTIFIED EARL MILIAN. NEW ORDER RECIEVED TO TRANSFUSE 1U PRBC
[2019-03-14 15:21] LABS: % SATURATION 4 % (15-55); IRON 20 ug/dl (35-150); TOTAL IRON BIND CAPACITY 420 ug/dl (260-445); UNSAT IRON BIND CAPACITY 400 ug/dl (150-375)
[2019-03-14 16:13] LABS: FERRITIN 16 ng/mL (3-244); LDH 229 U/L (81-234)
--- NOTE | 2019-03-14 17:02 | NUR ---
1U PRBC OBTAINED FROM LAB AND VERIFIED WITH SECOND NURSE. PRE-INFUSION VITALS TAKEN AND WNL. INFUSION STARTED AT 1655
--- NOTE | 2019-03-14 19:38 | NUR ---
RESUME CARE. PT LAYING IN BED LAYING ON SIDE EYES CLOSED BREATH SOUNDS EVEN UNLABORED , IV IN RT AC PRBC INFUSING @125 PT DOES NOT APPEAR BE IN DISTRESS CL IN REACH ISAIAS CONT TO MONITOR
--- NOTE | 2019-03-14 19:46 | NUR ---
RESUMING CARE, PT LAYING IN BED A&O BREATH SOUNDS 02 ON AT 2L , IV IN LT AC , PT HAS FAITH DRAINING BY GRAVITY NO C/O PAIN OT DISTRESS AT THIS TIME CL INREACH WILL CONT TO MONITOR
--- NOTE | 2019-03-14 20:55 | NUR ---
BLOOD COMPLETE V/S WNL TEMP:98.4 PULSE:85 RESP:16 B/P 175/81
[2019-03-15 04:00] VITALS: BP 110/73
[2019-03-15 06:53] LABS: ANION GAP 13.7 mmol/L (8-16); CALCIUM 8.5 mg/dL (8.5-10.1); CREATININE - SERUM 1.1 mg/dL (0.6-1.3); MAGNESIUM - SERUM 2.3 mg/dL (1.8-2.4); PHOSPHOROUS 3.3 mg/dL (2.5-4.9); POTASSIUM - SERUM 3.7 mmol/L (3.5-5.1)
[2019-03-15 07:12] LABS: BASOPHILS 0.2 % (0-2); EOSINOPHILS 4.2 % (0-7); HEMATOCRIT 27.7 % (36.0-48.0); IMMATURE GRANULOCYTES 0.4 % (0-5); LYMPHOCYTES 24.7 % (15-50); MCH 20.7 pg (26.0-34.0); MCHC 28.9 g/dL (31.0-37.0); MCV 71.8 fL (80.0-100.0); MEAN PLATELET VOLUME 9.6 fL (7.4-10.4); MONOCYTES 8.2 % (2-11); NEUTROPHILS 62.3 % (40-80); PLATELET COUNT 337 10x3/uL (130-400); RBC 3.86 10x6/uL (4.00-5.40); RDW 23.5 % (11.5-14.5); WBC 8.1 10x3/uL (4.8-10.8)
[2019-03-15 07:20] LABS: FOLATE (FOLIC ACID) - SERUM 7.9 ng/mL (>3.0)
--- NOTE | 2019-03-15 07:50 | NUR ---
PT RESTING IN BED, SHIFT ASSESSMENT PERFORMED. DENIES ANY NEEDS AT THIS TIME, WILL CONT TO FOLLOW POC
[2019-03-15 08:54] VITALS: BP 144/70
--- NOTE | 2019-03-15 09:47 | EC ---
PATIENT:HUSSEIN DURBIN DATE OF SERVICE: 03/14/19 SEX: F MEDICAL RECORD: [id number] DATE OF : [birth year] LOCATION:D.M2 D.210 AGE OF PATIENT: 63 ADMISSION DATE: 03/14/19 REFERRING PHYSICIAN: INTERPRETING PHYSICIAN: AMY ANAND MD ECHOCARDIOGRAM REPORT ECHO CHARGES 4 ECHO COMPLETE Date: 03/14/19 CLINICAL DIAGNOSIS: MR/TR ECHOCARDIOGRAPHIC MEASUREMENTS (adult normal given) AC root (d.<3.7cm) 2.8 cm LV Septum d (<1.2 cm> 0.9 cm Valve Excursion 1.7 cm LV Septum (systole) 1.3 cm Left Atria (s.<4.0cm> 3.7 cm LVPW d(<1.2cm) 1.0 cm RV (d.<2.3cm) 2.1 cm LVPW (sytole) 1.7 cm LV diastole(<5.6CM) 5.0 cm MV E-F(>70mm/sec) cm LV systole 3.0 cm LVOT Diameter 1.6 cm MV exc.(>10mm) cm Est.ejection fraction (50-75%) % DOPPLER: LVIT cm/sec A 76.0 cm/sec E 111 cm/sec LA cm/sec RVSP 61.3 mmHg LVOT 110 cm/sec AOP1/2T m/s Asc. Ao 168 cm/sec RVOT 57.0 cm/sec RA cm/sec PA 96.0 cm/sec AV Gradient Peak 11.3 mmHg AV Mean 5.3 mmHg AV Area 1.2 cm MV Gradient Peak 6.9 mmHg MV Mean 2.5 mmHg MV Area cm COMMENTS: Representative Phlebotomy Services: Beata BRADENOE Clarity Developer: 3 Dr. Bates TAPE# PACS Pericardial Effusion N DATE OF SERVICE: Adequate 2D, color flow and spectral Doppler, and M-Mode. No LVH. LV internal dimensions are normal. Wall motion is normal. EF is greater than or equal to 55%. Aortic valve is tricuspid. No evidence of stenosis by Doppler interrogation. The left atrium is normal at 3.7 cm. Mitral valve shows no prolapse. Mild MR. RV internal dimensions appear upper limits of normal. Right atrium is dilated. Ptrmagfp-jw-nhjezo TR. PA pressure is elevated to greater than or equal to 61 mmHg via the continuity equation. ECHOCARDIOGRAM REPORT [id number] RAMAKRISHNACHANO CuelloCHIVO LEMA TRANSINT:[id number] Voice Confirmation ID: [id number] DOCUMENT ID: [id number] AMY ANAND MD at 0947 CC: [id number] DICTATION DATE: 03/14/19 1307 TANK SYSTEMS MAINTAINER: 03/14/19 1333 ADM IN [place] [id number] [place] [address]
--- NOTE | 2019-03-15 10:15 | NUR ---
OCCULT STOOL CAME BACK POSITIVE. NOTIFIED EARL MILIAN. NEW ORDER RECIEVED TO CALL GI.
--- NOTE | 2019-03-15 12:00 | NUR ---
PT SITTING IN CHAIR EATING LUNCH. DENIES ANY NEEDS AT THIS TIME, WILL CONT TO FOLLOW POC
[2019-03-15 12:12] VITALS: BP 158/81
[2019-03-15 14:39] LABS: APPEARANCE CLEAR (CLEAR); COLOR STRAW (YELLOW); SPECIFIC GRAVITY 1.005 (1.005-1.020)
[2019-03-15 14:40] LABS: BILIRUBIN NEGATIVE (NEGATIVE); GLUCOSE NEGATIVE (NEGATIVE); KETONE NEGATIVE (NEGATIVE); NITRITE NEGATIVE (NEGATIVE); PROTEIN NEGATIVE (NEGATIVE); UROBILINOGEN NORMAL (NORMAL)
[2019-03-15 16:15] VITALS: BP 166/81
--- NOTE | 2019-03-15 18:06 | NUR ---
PT RESTING IN BED, DENIES ANY NEEDS AT THIS TIME, WILL CONT TO FOLLOW POC
--- NOTE | 2019-03-15 19:20 | NUR ---
AWAKE AND ALERT BED IS LOW AND LOCKED WITH CALL LIGHT IN REACH.. DENIES CP LCTA AND SKIN WARM AND DRY PULSES INTACT. REPORTRD SR ON TELEMETRY WITH NO PACED BEATS
[2019-03-15 20:21] VITALS: BP 150/96
[2019-03-16] VITALS (7 sets, daily range): BP systolic 137–172; BP diastolic 54–86
--- NOTE | 2019-03-16 02:15 | NUR ---
I have reviewed this patient and I concur with the Shift Assessment completed by the Licensed Practical Nurse today this shift.
[2019-03-16 04:07] LABS: BASOPHILS 0.5 % (0-2); EOSINOPHILS 5.1 % (0-7); HEMATOCRIT 29.5 % (36.0-48.0); HEMOGLOBIN 8.4 g/dL (12-16); IMMATURE GRANULOCYTES 0.4 % (0-5); LYMPHOCYTES 20.2 % (15-50); MCH 20.8 pg (26.0-34.0); MCHC 28.5 g/dL (31.0-37.0); MCV 73.2 fL (80.0-100.0); MEAN PLATELET VOLUME 9.5 fL (7.4-10.4); MONOCYTES 8.9 % (2-11); NEUTROPHILS 64.9 % (40-80); PLATELET COUNT 358 10x3/uL (130-400); RBC 4.03 10x6/uL (4.00-5.40); RDW 24.5 % (11.5-14.5); WBC 9.6 10x3/uL (4.8-10.8)
[2019-03-16 04:25] LABS: CARBON DIOXIDE 25.1 mmol/L (21.0-32.0); CREATININE - SERUM 1.1 mg/dL (0.6-1.3); POTASSIUM - SERUM 4.1 mmol/L (3.5-5.1)
--- NOTE | 2019-03-16 07:40 | NUR ---
A/A/OX4. DENIES ANY PAIN OR DISCOMFORT AT PRESENT TIME AND VOICES NO REQUESTS. ASSESSMENT COMPLETED AND WILL CONTINUE POC. CALL LIGHT IN REACH.
--- NOTE | 2019-03-16 12:12 | NUR ---
I have reviewed this patient and I concur with the Shift Assessment completed by the Licensed Practical Nurse today this shift.
--- NOTE | 2019-03-16 19:41 | NUR ---
EVENING ROUNDS COMPLETED. REPORT RECEIVED. PT SITTING UP IN BED WITH EYES OPEN, RR EVEN AND UNLABORED. BED IN LOW POSITION. SIDE RAILS UP X2. NO S/S OF DISTRESS NOTED. INTRODUCED SELF TO PT. PT REQUESTS TO HAVE FAN PROVIDED. FAN PROVIDED FROM SPECIAL CERTIFICATE DICTATOR. PT DENIES FURTHER NEEDS AT THIS TIME. CALL LIGHT IN REACH. WILL CTM.
[2019-03-17 03:54] LABS: BASOPHILS 0.6 % (0-2); EOSINOPHILS 5.8 % (0-7); HEMATOCRIT 31.9 % (36.0-48.0); IMMATURE GRANULOCYTES 0.5 % (0-5); LYMPHOCYTES 28.2 % (15-50); MCHC 28.2 g/dL (31.0-37.0); MCV 74.4 fL (80.0-100.0); MEAN PLATELET VOLUME 9.3 fL (7.4-10.4); MONOCYTES 9.2 % (2-11); NEUTROPHILS 55.7 % (40-80); PLATELET COUNT 357 10x3/uL (130-400); RBC 4.29 10x6/uL (4.00-5.40); RDW 25.5 % (11.5-14.5); WBC 8.3 10x3/uL (4.8-10.8)
[2019-03-17 03:55] VITALS: BP 160/84
[2019-03-17 04:04] LABS: ANION GAP 13.5 mmol/L (8-16); CALCIUM 9.1 mg/dL (8.5-10.1); CARBON DIOXIDE 24.6 mmol/L (21.0-32.0); CREATININE - SERUM 1.1 mg/dL (0.6-1.3); POTASSIUM - SERUM 4.1 mmol/L (3.5-5.1)
--- NOTE | 2019-03-17 07:57 | NUR ---
RECEIVED REPORT. ASSUMED CARE OF PATIENT. PATIENT SITTING UP IN BED. WHEEZES NOTED POSTERIOR ON EXPIRATION. CALL LIGHT WITHIN REACH. PATIENT STATES SHE FEELS WORSE TODAY THAN YESTERDAY. RESP EVEN AND UNLABORED. NO ACUTE DISTRESS.
[2019-03-17 08:02] VITALS: BP 159/82
[2019-03-17] MEDS ORDERED: ZITHROMAX250 MG PO (10:18)
--- NOTE | 2019-03-17 10:30 | NUR ---
GLENNA REPORTS TO NURSE AT THIS TIME THAT SHE WENT TO CHECK ON PATIENT BECAUSE SHE WAS NOT PICKING UP ON CAUSTIC PUMP OPERATOR. GLENNA REPORTS PATIENT IN ROOM HAVING A FIT, TAKING PICTURES OF EVERYTHING, PULLING AT IV AND TAKING PICTURES OF IV. PATIENT STATES I'M TURNING ALL THESE PICTURES IN. PICTURES TAKEN WITH PERSONAL CELLPHONE CAMERA. PATIENT VERY RUDE TO STAFF THAT SHE IS TURNING ALL OF US IN. THIS IS THE FIRST SHIFT THIS IMPREGNATOR AND DRIER HELPER HAS EVER CARED FOR THIS PATIENT AND NO BEHAVIOR OR COMPLAINTS AGAINST NURSING STAFF FROM PATIENT UNTIL SHE WAS TOLD SHE WAS BEING DISCHARGED AND ALL HOME NARCOTICS AND ANTIANXIETY MEDICATIONS WOULD NEED TO BE REFILLED BY HER PCP. PATIENT BEHAVIOR IS UNACCEPTABLE.
--- NOTE | 2019-03-17 11:25 | NUR ---
20 GAUGE IV REMOVED FROM RIGHT AC. CATHETER TIP INTACT. IV CATHETER 1/2 WAY OUT OF INSERTION POINT. PATIENT PULLING ON IV EARLIER AND TAKING PICTURES. PATIENT STATES IV WAS NOT PLACED PROPERLY SINCE SHE HAS BEEN HERE. CATHETER TIP INTACT. NO BLEEDING FROM SITE. 2X2 GAUZE APPLIED AND SECURED WITH TAPE. TOELRATED IV REMOVAL WELL.
--- NOTE | 2019-03-17 11:30 | NUR ---
PATIENT SITTING TO BEDSIDE. PATIENTS DAUGHTER STANDING UP AGAINST WALL FACING HER MOM. THIS NURSE TRYING TO GIVE DISCHARGE INSTRUCTIONS WHEN BOTH PATIENT AND PATIENTS DAUGHTER SPEAKING AND MAKING THREATS OF TURNING THE HOSPITAL IN FOR DISCHARGING THE PATIENT. THE PATIENT AND DAUGHTER ONLY ACT LIKE THIS WITH THIS AIRPORT ELECTRICIAN AND NOT TOWARD MD, HAT LINER, OR FULLING MILL OPERATOR THAT WERE PREVIOUSLY IN PATIENT ROOM. THIS AIRPORT ELECTRICIAN REQUESTED ONE PERSON SPEAK AT A TIME BECAUSE I CANNOT UNDERSTAND WHAT EACH OF YOU ARE TALKING ABOUT WHEN THEY ARE RAISING THEIR VOICES COMPLAINING AT THE SAME TIME! THE PATIENTS DAUGHTER REFUSED TO LOOK AT THIS AIRPORT ELECTRICIAN AND TURNS AWAY WHEN RAISING HER VOICE THAT SHE IS SPEAKING NOW. THIS AIRPORT ELECTRICIAN AGAIN EXPLAINED, I CANNOT UNDERSTAND WHEN EACH OF YOU ARE RAISING YOUR VOICE AND MAKING THREATS AND COMPLAINING AT THE SAME TIME. FINALLY BOTH PARTIES LISTENED WHILE THIS AIRPORT ELECTRICIAN PROVIDED DISCHARGE INSTRUCTIONS.
--- NOTE | 2019-03-17 11:40 | NUR ---
PATIENT LEFT UNIT VIA WHEELCHAIR WITH ALL PERSONAL BELONGING IN NO DISTRESS. PATIENT DISCHARGED TO HOME WITH HER DAUGHTER.
--- NOTE | 2019-03-18 09:07 | MORECARE ---
CASE MANAGEMENT DISCHARGE SUMMARY PATIENT: HUSSEIN DURBIN TOREY UNIT: [id number] ADM DATE: 03/13/19 AGE: 63 : 57 SEX: F ROOM/BED: D.2100 AUTHOR: BRITTNI ODONNELL PHYSICIAN: REFERRING PHYSICIAN: AMBROCIO POOLE MD DATE OF SERVICE: 03/18/19 Discharge Plan Patient Name: [facility]USSEIN DURBIN [facility] [facility] 1955 Planned Disposition: Home Anticipated Discharge Date: 03/17/19 Discharge Date: 03/17/2019 Expected LOS: 4 Initial Reviewer: [email or web address] Initial Review Date: 03/18/2019 Generated: 03/18/19 10:06 am Coverage Notice Reviewer: [email or web address] Marianne Baker Notice Issued Date-Time: 03/17/2019 11:00 Notice Type: IM Discharge Notice Notice Delivered To: Patient Relationship to Patient: Self Aircraft Quality Control Inspector Name: Delivery Method: HAND - Hand Delivered Alyssa Days: Prior Verbal Notification: Recipient Understood Notice: Yes Recipient Signature: Yes Med Rec Note Co-signed by Attending: Coverage Notice Comment: Patient Name: HUSSEIN DURBIN Page [phone] at 0907 All edits/amendments must be made on the electronic document DICTATION DATE: 03/18/19905 DISK RECOATER: ANN 03/18/19905 RPT#: [id number] DC DATE:03/17/19 STATUS: DIS IN [facility] [address] [place] [address] END OF REPORT
== END 2019-03-17 11:40 | disposition home or self-care (01) | DRG 314 ==
LOC: OBSVTIME → D.ER 18:32 → D.M2 20:20 → OBSVTIME 20:22 → D.ER 20:22 → D.M2 20:22
PROVIDERS: Family Medicine; ADMIT Internal Medicine Nephrology; ATTEND Internal Medicine Nephrology
DX: T82.897A Other specified complication of cardiac prosthetic devices, implants and grafts, initial encounter (principal); J18.1 Lobar pneumonia, unspecified organism; D50.9 Iron deficiency anemia, unspecified; I10 Essential (primary) hypertension; E78.5 Hyperlipidemia, unspecified; K21.9 Gastro-esophageal reflux disease without esophagitis; E11.9 Type 2 diabetes mellitus without complications; J44.9 Chronic obstructive pulmonary disease, unspecified; E11.51 Type 2 diabetes mellitus with diabetic peripheral angiopathy without gangrene; I08.1 Rheumatic disorders of both mitral and tricuspid valves; Z95.0 Presence of cardiac pacemaker; Z86.73 Personal history of transient ischemic attack (TIA), and cerebral infarction without residual deficits; I25.10 Atherosclerotic heart disease of native coronary artery without angina pectoris; I73.9 Peripheral vascular disease, unspecified

== ENCOUNTER 2019-04-01 09:05 | Emergency (ER) | payer MEDICARE, MEDICAID ==
[~2019-04-01] VITALS: Ht 162.6 cm; Wt 88.5 kg
[~2019-04-01 09:05] MED LIST changes: +ZITHROMAX250 MG PO
[2019-04-01 09:17] VITALS: Ht 162.6 cm; Wt 88.5 kg
[2019-04-01 11:16] VITALS: BP 110/52
== END 2019-04-01 11:17 | disposition home or self-care (01) ==
LOC: D.ER 09:05
DX: S00.83XA Contusion of other part of head, initial encounter (principal); W18.2XXA Fall in (into) shower or empty bathtub, initial encounter; Y93.E1 Activity, personal bathing and showering; Y92.012 Bathroom of single-family (private) house as the place of occurrence of the external cause

== ENCOUNTER 2019-06-30 20:39 | Inpatient (IN) | payer MEDICARE, MEDICAID ==
[~2019-06-30] VITALS: Ht 162.6 cm; Wt 88.0 kg
[~2019-06-30 20:39] MED LIST changes: +HYDROCODON-ACE1 EA10 PO
[2019-06-30 21:41] LABS: BASOPHILS 0.5 % (0-2); EOSINOPHILS 2.7 % (0-7); HEMATOCRIT 34.8 % (36.0-48.0); HEMOGLOBIN 10.6 g/dL (12-16); IMMATURE GRANULOCYTES 0.2 % (0-5); LYMPHOCYTES 26.9 % (15-50); MCH 25.1 pg (26.0-34.0); MCHC 30.5 g/dL (31.0-37.0); MCV 82.5 fL (80.0-100.0); MEAN PLATELET VOLUME 9.9 fL (7.4-10.4); MONOCYTES 9.2 % (2-11); NEUTROPHILS 60.5 % (40-80); PLATELET COUNT 293 10x3/uL (130-400); RBC 4.22 10x6/uL (4.00-5.40); RDW 15.3 % (11.5-14.5); WBC 8.8 10x3/uL (4.8-10.8)
[2019-06-30 21:43] LABS: ALBUMIN 3.5 g/dL (3.4-5.0); ANION GAP 11.4 mmol/L (8-16); BILIRUBIN - TOTAL 0.3 mg/dL (0.2-1.3); CALCIUM 8.9 mg/dL (8.5-10.1); CARBON DIOXIDE 28.3 mmol/L (21.0-32.0); CREATININE - SERUM 1.2 mg/dL (0.6-1.3); POTASSIUM - SERUM 3.7 mmol/L (3.5-5.1); PROTEIN - SERUM 7.2 g/dL (6.4-8.2)
[2019-06-30 22:28] LABS: PRO BNP 94 pg/mL (0-125)
[2019-06-30 22:29] LABS: TROPONIN-I < 0.017 ng/mL (0.000-0.060)
[2019-06-30] MEDS ORDERED: ADVAIR 250/501 DISK INH (23:02)
[2019-06-30] MEDS ORDERED: GLUCOTROL XL 5 M5 MG PO (23:03)
[2019-06-30] MEDS ORDERED: PEPCID AC20 MG PO (23:03)
[2019-06-30] MEDS ORDERED: OMEPRAZOLE20 M1 PO (23:05)
--- NOTE | 2019-06-30 23:20 | NUR ---
PT ARRIVED ON UNIT VIA WHEELCHAIR ESCORTED BY ER NURSE. ORIENTED TO ROOM AND CALL LIGHT. PROVIDED GOWN TO CHANGE INTO. WILL MONITOR FOR NEEDS.
--- NOTE | 2019-06-30 23:30 | NUR ---
PT VERY SOB AFTER CHANGING CLOTHING...PLACED O2 AT 2L VIA NC. PT STATES SHE USES O2 AT HOME PRN.
--- NOTE | 2019-06-30 23:50 | NUR ---
TELEMETRY PLACED PER ORDER. READING 66 SR PER [employer] SOFTWARE DEVELOPMENT ENGINEER.
--- NOTE | 2019-06-30 23:56 | NUR ---
CALLED MONISHA TRUJILLO TO REQUEST NORCO 10 Q8 PRN PER HOME MEDICATION LIST FOR CHRONIC BACK AND HIP PAIN.
[2019-07-01] VITALS (7 sets, daily range): BP systolic 126–195; BP diastolic 56–84; BMI 33.3
--- NOTE | 2019-07-01 | NUR ---
GAVE TURKEY SANDWICH FOR HS SNACK PER REQUEST.
--- NOTE | 2019-07-01 00:03 | NUR ---
GAVE NORCO 10 PO PER PRN ORDER FOR C/O CHRONIC BACK AND HIP PAIN. WILL MONITOR FOR EFFECTIVENESS.
--- NOTE | 2019-07-01 00:18 | NUR ---
ADMISSION ASSESSMENT AND HISTORY COMPLETE.
[2019-07-01 06:16] LABS: ALBUMIN 3.3 g/dL (3.4-5.0); ALKALINE PHOSPHATASE 100 U/L (46-116); ALT (SGPT) 17 U/L (10-68); BILIRUBIN - TOTAL 0.23 mg/dL (0.2-1.3); CARBON DIOXIDE 24.5 mmol/L (21.0-32.0); CHLORIDE - SERUM 105 mmol/L (98-107); CREATININE - SERUM 1.1 mg/dL (0.6-1.3); PROTEIN - SERUM 6.9 g/dL (6.4-8.2); SODIUM 140 mmol/L (136-145); UREA NITROGEN 19 mg/dL (7-18); eGFR NON AFRICAN AMERICAN 53 mL/min (90-120)
[2019-07-01 06:17] LABS: CALC OSMOLALITY 287 mosm/kg (275-300); GLUCOSE 219 mg/dL (74-106); POTASSIUM - SERUM 4.5 mmol/L (3.5-5.1); TROPONIN-I < 0.017 ng/mL (0.000-0.060)
--- NOTE | 2019-07-01 07:00 | NUR ---
PATIENT RECIEVED FROM PREVIOUS SHIFT RESTING IN BED. RESPIRATIONS REGULAR AND NONLABORED AT THIS TIME. 02 2 LPM/NC
[2019-07-01] MEDS ORDERED: COZAAR100 MG PO (07:18)
[2019-07-01 07:39] LABS: BASOPHILS 0.2 % (0-2); EOSINOPHILS 0 % (0-7); HEMATOCRIT 34.2 % (36.0-48.0); HEMOGLOBIN 10.3 g/dL (12-16); IMMATURE GRANULOCYTES 0.2 % (0-5); LYMPHOCYTES 11.6 % (15-50); MCH 24.9 pg (26.0-34.0); MCHC 30.1 g/dL (31.0-37.0); MCV 82.8 fL (80.0-100.0); MEAN PLATELET VOLUME 10.3 fL (7.4-10.4); MONOCYTES 1.1 % (2-11); NEUTROPHILS 86.9 % (40-80); PLATELET COUNT 305 10x3/uL (130-400); RBC 4.13 10x6/uL (4.00-5.40); RDW 15.1 % (11.5-14.5)
[2019-07-01 07:40] LABS: WBC 5.6 10x3/uL (4.8-10.8)
[2019-07-01 07:46] LABS: % SATURATION 5 % (15-55); IRON 21 ug/dl (35-150); TOTAL IRON BIND CAPACITY 383 ug/dl (260-445); UNSAT IRON BIND CAPACITY 362 ug/dl (150-375)
[2019-07-01 15:32] LABS: UDS - AMPHET NEGATIVE QUAL (NEGATIVE); UDS - BARB NEGATIVE QUAL (NEGATIVE); UDS - BENZO NEGATIVE QUAL (NEGATIVE); UDS - COCAINE NEGATIVE QUAL (NEGATIVE); UDS - OPIATE POSITIVE QUAL (NEGATIVE); UDS - PCP NEGATIVE QUAL (NEGATIVE); UDS - THC NEGATIVE QUAL (NEGATIVE)
[2019-07-01 16:48] LABS: APPEARANCE CLEAR (CLEAR); BILIRUBIN NEGATIVE (NEGATIVE); COLOR YELLOW (YELLOW); GLUCOSE 250 mg/dL (NEGATIVE); KETONE NEGATIVE (NEGATIVE); NITRITE NEGATIVE (NEGATIVE); PROTEIN NEGATIVE (NEGATIVE); UROBILINOGEN NORMAL (NORMAL)
--- NOTE | 2019-07-01 16:48 | NUR ---
IV RESITED TO RIGHT HAND DUE TO LEAKING. 22G X 1 STICK, PATIETN TOLERATED WELL
--- NOTE | 2019-07-01 19:35 | MORECARE ---
CASE MANAGEMENT DISCHARGE SUMMARY PATIENT: HUSSEIN DURBIN TOREY UNIT: [id number] ADM DATE: 06/30/19 AGE: 63 : 57 SEX: F ROOM/BED: D.2203 AUTHOR: BRITTNI ODONNELL PHYSICIAN: REFERRING PHYSICIAN: AMBROCIO POOLE MD DATE OF SERVICE: 07/01/19 Discharge Plan Patient Name: HUSSEIN DURBIN [facility] [facility] 1955 Planned Disposition: Anticipated Discharge Date: Discharge Date: Expected LOS: Initial Reviewer: [id number] Initial Review Date: 06/30/2019 Generated: 07/01/19 8:35 pm External Providers External Provider: OTHER-OTHER Next Contact Date: Service Request Date: Service Type: Resolution: Reviewer: Comments: Coverage Notice Reviewer: [id number] Marianne Mello Notice Issued Date-Time: 07/01/2019 16:14 Notice Type: Medicare Outpatient Observation Notice Notice Delivered To: Patient Relationship to Patient: Self Water Softener Servicer Name: Delivery Method: HAND - Hand Delivered Alyssa Days: Prior Verbal Notification: Recipient Understood Notice: Yes Recipient Signature: Yes Med Rec Note Co-signed by Attending: Coverage Notice Comment: [place] explained, signed, given, copy placed in MR Patient Name: HUSSEIN DURBIN Page [id number] at 1935 All edits/amendments must be made on the electronic document DICTATION DATE: 07/01/191933 CASER UP: ANN 07/01/191933 RPT#: [id number] DC DATE: STATUS: ADM IN [facility] [address] [place] [address] END OF REPORT
--- NOTE | 2019-07-01 20:00 | NUR ---
ALERT AND ORIENTIATED RESTING QUITELY, RESP UNLABORED REPORTS SOB WITH EXERTION, DENIES PAIN, SEE SHIFT ASSESSMENT, CALL LIGHT IN REACH
[2019-07-02 00:30] VITALS: BP 151/70
[2019-07-02 05:11] VITALS: BP 142/88
[2019-07-02 05:37] LABS: BASOPHILS 0.1 % (0-2); EOSINOPHILS 0 % (0-7); HEMATOCRIT 34.1 % (36.0-48.0); HEMOGLOBIN 10.1 g/dL (12-16); IMMATURE GRANULOCYTES 0.3 % (0-5); LYMPHOCYTES 10.4 % (15-50); MCH 24.8 pg (26.0-34.0); MCHC 29.6 g/dL (31.0-37.0); MCV 83.6 fL (80.0-100.0); MEAN PLATELET VOLUME 10.2 fL (7.4-10.4); MONOCYTES 3.8 % (2-11); NEUTROPHILS 85.4 % (40-80); PLATELET COUNT 283 10x3/uL (130-400); RBC 4.08 10x6/uL (4.00-5.40); RDW 15.1 % (11.5-14.5)
[2019-07-02 05:48] LABS: WBC 11.3 10x3/uL (4.8-10.8)
[2019-07-02 06:22] LABS: ANION GAP 16.6 mmol/L (8-16); CALCIUM 9.3 mg/dL (8.5-10.1); CARBON DIOXIDE 24.4 mmol/L (21.0-32.0)
--- NOTE | 2019-07-02 07:00 | NUR ---
PATIENT RECIEVED RESTING WITH NO NEEDS VOICED, STATES SHE FEELS BETTER THAN YESTERDAY. RESPIRATIONS REGULAR AND NON-LABORED. CL IN REACH
[2019-07-02 08:28] VITALS: BP 130/69
[2019-07-02 13:13] VITALS: BP 135/70
--- NOTE | 2019-07-02 16:34 | MORECARE ---
CASE MANAGEMENT DISCHARGE SUMMARY PATIENT: HUSSEIN DURBIN TOREY UNIT: [id number] ADM DATE: 07/02/19 AGE: 63 : 57 SEX: F ROOM/BED: D.2203 AUTHOR: BRITTNI ODONNELL PHYSICIAN: REFERRING PHYSICIAN: AMBORCIO POOLE MD DATE OF SERVICE: 07/02/19 Discharge Plan Patient Name: HUSSEIN DURBIN Facility: [facility]:[place] : 1955 Planned Disposition: Home or Self Care Anticipated Discharge Date: Discharge Date: Expected LOS: Initial Reviewer: [email or web address] Initial Review Date: 06/30/2019 Generated: 07/02/19 5:34 pm DCPIA - Discharge Planning Initial Assessment Updated by [email or web address]: Bailey Warren on 07/02/19 4:29 pm * Is the patient Alert and Oriented? Yes * How many steps to enter\exit or inside your home? FEW * PCP CURTIS * Pharmacy [facility] * Preadmission Environment Home with Family * ADLs Independent * Equipment Nebulizer * Other Equipment USES HER FRIENDS O2 AT TIMES NEEDS A WALKER * List name and contact numbers for known caregivers / representatives who currently or will assist patient after discharge: TAYLOR RUBIO(DAUGHTER) [phone] * Verbal permission to speak to the caregivers and representatives has been obtained from the patient. N/A * Community resources currently utilized None * Additional services required to return to the preadmission environment? Yes * Can the patient safely return to the preadmission environment? Yes * Has this patient been hospitalized within the prior 30 days at any hospital? No Coverage Notice Reviewer: [id number] Marianne Mello Notice Issued Date-Time: 07/01/2019 16:14 Notice Type: Medicare Outpatient Observation Notice Notice Delivered To: Patient Relationship to Patient: Self Marine Insulator Name: Delivery Method: HAND - Hand Delivered Alyssa Days: Prior Verbal Notification: Recipient Understood Notice: Yes Recipient Signature: Yes Med Rec Note Co-signed by Attending: Coverage Notice Comment: ONDINA explained, signed, given, copy placed in MR Last DP export: 07/01/19 6:35 p Patient Name: HUSSEIN DURBIN Page 40519 at 1634 All edits/amendments must be made on the electronic document DICTATION DATE: 07/02/191633 CHIEF OF SAFETY AND PROTECTION: ANN 07/02/191633 RPT#: [id number] DC DATE: STATUS: ADM IN [facility] [address] [place] [address] END OF REPORT
[2019-07-02 16:41] VITALS: BP 130/72
--- NOTE | 2019-07-02 16:44 | MORECARE ---
CASE MANAGEMENT DISCHARGE SUMMARY PATIENT: HUSSEIN DURBIN UNIT: [id number] ADM DATE: 07/02/19 AGE: 63 : 57 SEX: F ROOM/BED: D.2203 AUTHOR: BLAS,DOC PHYSICIAN: REFERRING PHYSICIAN: AMBROCIO POOLE MD DATE OF SERVICE: 07/02/19 Discharge Plan Patient Name: HUSSEIN DURBIN Facility: [facility]:[place] : 1955 Planned Disposition: Home or Self Care Anticipated Discharge Date: Discharge Date: Expected LOS: Initial Reviewer: [id number] Initial Review Date: 06/30/2019 Generated: 07/02/19 5:44 pm Comments DCP- Discharge Planning Updated by [email or web address]: Bailey Warren on 07/02/19 3:[address] Patient Name: HUSSEIN DURBIN Admission Status: ER Accout number: [id number] Admission Date: 07-02-2019 : 1955 Admission Diagnosis: Attending: AMBROCIO POOLE Current LOS: 1 Anticipated DC Date: Planned Disposition: Home or Self Care Primary Insurance: [employer]IC[employer] ADV Discharge Planning Comments: CM met with patient to complete initial dc planning assessment. CM educated patient on the CM role and verbal consent given by patient to complete assessment. Patient lives at home with her brother. At discharge patient plans to return there and feels this is a safe discharge. Her daughter will be her parcel post truck driver home and is a UNDERWATER WELDER and helps her our when needed. CM discussed availability of home health, rehab services, and medical equipment. Patient did not want home health, but stated that she is using her friends portable O2 and does not have any of her own. We will do a walk test to see if she can qualify for her own prior to dc. She has a nebulizer at home & would like a walker. [facility] for [facility] [place]. IMM served and explained. Copy placed in chart. Patient denied known discharge needs at this time. CM will continue to follow and will assist as needed with dc plans/needs. Civil Drafter: Bailey Warren DCPIA - Discharge Planning Initial Assessment Updated by [email or web address]: Bailey Warren on 07/02/19 4:29 pm * Is the patient Alert and Oriented? Yes * How many steps to enter\exit or inside your home? FEW * PCP CURTIS * [facility] * Preadmission Environment Home with Family * ADLs Independent * Equipment Nebulizer * Other Equipment USES HER FRIENDS O2 AT TIMES NEEDS A WALKER * List name and contact numbers for known caregivers / representatives who currently or will assist patient after discharge: TAYLOR RUBIO(DAUGHTER) [phone] * Verbal permission to speak to the caregivers and representatives has been obtained from the patient. N/A * Community resources currently utilized None * Additional services required to return to the preadmission environment? Yes * Can the patient safely return to the preadmission environment? Yes * Has this patient been hospitalized within the prior 30 days at any hospital? No Coverage Notice Reviewer: [id number] Marianne Mello Notice Issued Date-Time: 07/01/2019 16:14 Notice Type: Medicare Outpatient Observation Notice Notice Delivered To: Patient Relationship to Patient: Self Noxious Weeds And Pest Inspector Name: Delivery Method: HAND - Hand Delivered Alyssa Days: Prior Verbal Notification: Recipient Understood Notice: Yes Recipient Signature: Yes Med Rec Note Co-signed by Attending: Coverage Notice Comment: ONDINA explained, signed, given, copy placed in MR Reviewer: [id number] Marianne Warren Notice Issued Date-Time: 07/02/2019 15:40 Notice Type: IM Discharge Notice Notice Delivered To: Patient Relationship to Patient: Noxious Weeds And Pest Inspector Name: Delivery Method: HAND - Hand Delivered Alyssa Days: Prior Verbal Notification: Recipient Understood Notice: Yes Recipient Signature: Yes Med Rec Note Co-signed by Attending: Coverage Notice Comment: Reviewer: [id number] Marianne Warren Notice Issued Date-Time: 07/02/2019 15:40 Notice Type: Patient Choice Letter Notice Delivered To: Patient Relationship to Patient: Noxious Weeds And Pest Inspector Name: Delivery Method: HAND - Hand Delivered Alyssa Days: Prior Verbal Notification: Recipient Understood Notice: Yes Recipient Signature: Yes Med Rec Note Co-signed by Attending: Coverage Notice Comment: demetris for myla Robert DP export: 07/02/19 3:34 p Patient Name: HUSSEIN DURBIN Page [id number] at 1644 All edits/amendments must be made on the electronic document DICTATION DATE: 10/08/19 1644 QUANTITATIVE MANAGER: DM 07/02/191643 RPT#: [id number] DC DATE: STATUS: ADM IN [facility] [address] [place] [address] END OF REPORT
--- NOTE | 2019-07-02 20:00 | NUR ---
ALERT RESTING QUITELY IN BED RESP UNLABORED O2 IN USE N/C, DENIES PAIN OR NEEDS AT THIS TIME , SEE SHIFT ASSESSMENT, CALL LIGHT IN REACH
[2019-07-02 20:49] VITALS: BP 125/63
[2019-07-03] VITALS (7 sets, daily range): BP systolic 129–154; BP diastolic 60–75
[2019-07-03 05:44] LABS: BASOPHILS 0.1 % (0-2); EOSINOPHILS 0 % (0-7); HEMATOCRIT 33.3 % (36.0-48.0); HEMOGLOBIN 9.8 g/dL (12-16); IMMATURE GRANULOCYTES 1.3 % (0-5); LYMPHOCYTES 9.4 % (15-50); MCH 24.7 pg (26.0-34.0); MCHC 29.4 g/dL (31.0-37.0); MCV 83.9 fL (80.0-100.0); MEAN PLATELET VOLUME 10.4 fL (7.4-10.4); MONOCYTES 2.7 % (2-11); NEUTROPHILS 86.5 % (40-80); PLATELET COUNT 298 10x3/uL (130-400); RBC 3.97 10x6/uL (4.00-5.40); RDW 15.2 % (11.5-14.5); WBC 12.8 10x3/uL (4.8-10.8)
[2019-07-03 06:06] LABS: ANION GAP 13.4 mmol/L (8-16); CALCIUM 9.1 mg/dL (8.5-10.1); CARBON DIOXIDE 28.3 mmol/L (21.0-32.0); POTASSIUM - SERUM 4.7 mmol/L (3.5-5.1)
--- NOTE | 2019-07-03 07:25 | NUR ---
PT SITTING UP ON SOB RECEIVING BREATHING TREATMENT. RESP EVEN AND UNLABORED. O2 @ 2L NC IN PLACE. REPORTS PAIN 8/10 AT THIS TIME. SALINE LOC TO RIGHT HAND INTACT, SITE WITHOUT REDNESS OR EDEMA. PT DENIES FURTHER NEEDS AT THIS TIME. CL WITHIN REACH. ENCOURAGED TO CALL WITH NEEDS. CONTINUE POC
--- NOTE | 2019-07-03 10:55 | NUR ---
NUTRITION F/U CHART REVIEWED, PT TOLERATING DIABETIC DIET. 100% INTAKE RECENT MEALS. WILL CONTINUE TO PROVIDE DIET, MONITOR PO INTAKE. RD FOLLOWING
--- NOTE | 2019-07-03 20:00 | NUR ---
A/O WITH NO SIGNS OF ACUTE DISTRESS. SITED IV TO THE LT FOREARM AND NC @2L. DENIES PAIN OR OTHER NEEDS AT THIS TIME. CONTINUE WITH PLAN OF CARE.
[2019-07-04 00:51] VITALS: BP 169/81
--- NOTE | 2019-07-04 02:26 | NUR ---
PT REQUESTED SOMETHING FOR DIARRHEA AFTER HAVING BM IN BED. SHE ALSO STATED THAT SHE HAS BEEN ASKING ALL DAY FOR IT. CALLED MD FOR ORDERS. CONTINUE WITH PLAN OF CARE.
[2019-07-04 05:06] VITALS: BP 135/81
[2019-07-04 06:38] LABS: BASOPHILS 0.1 % (0-2); EOSINOPHILS 0 % (0-7); HEMATOCRIT 33.7 % (36.0-48.0); HEMOGLOBIN 10.1 g/dL (12-16); IMMATURE GRANULOCYTES 1.5 % (0-5); LYMPHOCYTES 13.3 % (15-50); MCH 24.8 pg (26.0-34.0); MCV 82.6 fL (80.0-100.0); MEAN PLATELET VOLUME 10.5 fL (7.4-10.4); MONOCYTES 3.4 % (2-11); NEUTROPHILS 81.7 % (40-80); PLATELET COUNT 304 10x3/uL (130-400); RBC 4.08 10x6/uL (4.00-5.40); RDW 15.3 % (11.5-14.5); WBC 13.7 10x3/uL (4.8-10.8)
[2019-07-04 06:58] LABS: ANION GAP 11.8 mmol/L (8-16); CARBON DIOXIDE 28.3 mmol/L (21.0-32.0); CREATININE - SERUM 0.9 mg/dL (0.6-1.3); POTASSIUM - SERUM 4.1 mmol/L (3.5-5.1)
[2019-07-04 07:53] VITALS: BP 168/78
--- NOTE | 2019-07-04 08:30 | NUR ---
PT RESTING IN BED. RESP EVEN AND UNLABORED. PT REPORTS PAIN 4/10 AT THIS TIME. O2 @ 2L NC IN PLACE. SALINE LOC TO LEFT FOREARM, SITE WITHOUT REDNESS OR EDEMA. DENIES FURTHER NEEDS AT THIS TIME. CL WITHIN REACH. ENCOURAGED TO CALL WITH NEEDS. CONTINUE POC
[2019-07-04 12:23] VITALS: BP 152/78
[2019-07-04 17:01] VITALS: BP 171/89
[2019-07-04 20:00] VITALS: BP 177/78
[2019-07-05] VITALS: BP 174/87
[2019-07-05 04:00] VITALS: BP 154/97
[2019-07-05 06:02] LABS: BASOPHILS 0.1 % (0-2); EOSINOPHILS 0 % (0-7); HEMATOCRIT 34.4 % (36.0-48.0); HEMOGLOBIN 10.3 g/dL (12-16); IMMATURE GRANULOCYTES 1.7 % (0-5); LYMPHOCYTES 12.6 % (15-50); MCH 24.9 pg (26.0-34.0); MCHC 29.9 g/dL (31.0-37.0); MCV 83.1 fL (80.0-100.0); MONOCYTES 3.5 % (2-11); NEUTROPHILS 82.1 % (40-80); PLATELET COUNT 288 10x3/uL (130-400); RBC 4.14 10x6/uL (4.00-5.40); RDW 15.5 % (11.5-14.5); WBC 13.2 10x3/uL (4.8-10.8)
[2019-07-05 06:12] LABS: ANION GAP 10.5 mmol/L (8-16); CALCIUM 8.5 mg/dL (8.5-10.1); CARBON DIOXIDE 29.7 mmol/L (21.0-32.0); CREATININE - SERUM 1.1 mg/dL (0.6-1.3); POTASSIUM - SERUM 4.2 mmol/L (3.5-5.1)
--- NOTE | 2019-07-05 08:00 | NUR ---
PT RESTING IN BED. RESP SHALLOW. O2 @ 2L NC IN PLACE. PT DENIES PAIN AT THIS TIME. SALINE LOC TO LEFT UPPER ARM, SITE WITHOUT REDNESS OR EDEMA. ASSISTED PT TO BR AT THIS TIME. AMBULATES WELL WITH ASSIST. ASSISTED BACK TO BED. PT DENIES FURTHER NEEDS AT THIS TIME. CL WITHIN REACH. ENCOURAGED TO CALL WITH NEEDS. CONTINUE POC
[2019-07-05 08:15] VITALS: BP 193/91
--- NOTE | 2019-07-05 08:54 | NUR ---
20 gauge iv started in right upper forearm on the second attempt flushed without difficulty secured with tegaderm and tape, swab cap on no redness or edema noted at site saline locked
[2019-07-05 13:13] VITALS: BP 181/90
[2019-07-05 16:05] VITALS: BP 110/83
[2019-07-05 20:00] VITALS: BP 149/73
[2019-07-06] VITALS: BP 175/81
[2019-07-06 04:00] VITALS: BP 171/90
[2019-07-06 06:27] LABS: ANION GAP 11.7 mmol/L (8-16); BASOPHILS 0.1 % (0-2); CALCIUM 9.5 mg/dL (8.5-10.1); CARBON DIOXIDE 29.4 mmol/L (21.0-32.0); EOSINOPHILS 0 % (0-7); HEMATOCRIT 36.2 % (36.0-48.0); HEMOGLOBIN 10.9 g/dL (12-16); IMMATURE GRANULOCYTES 1.9 % (0-5); LYMPHOCYTES 9.7 % (15-50); MCH 25.3 pg (26.0-34.0); MCHC 30.1 g/dL (31.0-37.0); MEAN PLATELET VOLUME 10.3 fL (7.4-10.4); MONOCYTES 4.4 % (2-11); NEUTROPHILS 83.9 % (40-80); PLATELET COUNT 256 10x3/uL (130-400); POTASSIUM - SERUM 4.1 mmol/L (3.5-5.1); RBC 4.31 10x6/uL (4.00-5.40); RDW 15.6 % (11.5-14.5)
[2019-07-06 06:28] LABS: WBC 17.5 10x3/uL (4.8-10.8)
--- NOTE | 2019-07-06 09:23 | NUR ---
PT ALERT X 4. WHEEZES TO LEFT LOBES, CRACKLES TO RIGHT LOBE, 3L O2 PER NC, SOB. TELEMETRY IN PLACE. IV TO RIGHT FOREARM, SALINE LOCKED. PT REPORTING PAIN OF 9/10 TO BACK, MEDICATED PER ORDERS, WILL MONITOR. BED LOW, CALL LIGHT IN REACH. NO OTHER NEEDS AT THIS TIME.
[2019-07-06 13:33] VITALS: BP 165/76
[2019-07-06 18:07] VITALS: BP 143/68
[2019-07-06 21:04] VITALS: BP 134/80
--- NOTE | 2019-07-06 21:09 | NUR ---
PT REPORTS EPISODES OF DIARRHEA. GAVE IMMODIUM 2MG PO. PT C/O BACK PAIN 05/04. GAVE NORCO-10 1 TAB PO AND OTHER SCHEDULED MEDS. ASSESSMENT COMPLETE PER FLOW-SHEET. NO OTHER NEEDS. WILL CONTINUE TO MONITOR.
[2019-07-07 00:57] VITALS: BP 160/71
[2019-07-07 04:15] VITALS: BP 179/88
[2019-07-07 05:23] LABS: BASOPHILS 0.1 % (0-2); EOSINOPHILS 0.1 % (0-7); HEMATOCRIT 35.5 % (36.0-48.0); HEMOGLOBIN 10.8 g/dL (12-16); IMMATURE GRANULOCYTES 1.6 % (0-5); LYMPHOCYTES 10.1 % (15-50); MCH 25.2 pg (26.0-34.0); MCHC 30.4 g/dL (31.0-37.0); MCV 82.9 fL (80.0-100.0); MEAN PLATELET VOLUME 10.4 fL (7.4-10.4); MONOCYTES 4.7 % (2-11); NEUTROPHILS 83.4 % (40-80); PLATELET COUNT 271 10x3/uL (130-400); RBC 4.28 10x6/uL (4.00-5.40); RDW 16.2 % (11.5-14.5); WBC 18.8 10x3/uL (4.8-10.8)
[2019-07-07 05:37] LABS: CALC OSMOLALITY 289 mosm/kg (275-300); CALCIUM 9.2 mg/dL (8.5-10.1); CARBON DIOXIDE 29.8 mmol/L (21.0-32.0); CHLORIDE - SERUM 105 mmol/L (98-107); CREATININE - SERUM 0.8 mg/dL (0.6-1.3); POTASSIUM - SERUM 4.1 mmol/L (3.5-5.1); SODIUM 140 mmol/L (136-145); UREA NITROGEN 26 mg/dL (7-18); eGFR NON AFRICAN AMERICAN 77 mL/min (90-120)
[2019-07-07 05:41] LABS: GLUCOSE 206 mg/dL (74-106)
[2019-07-07 08:54] VITALS: BP 176/82
--- NOTE | 2019-07-07 09:20 | NUR ---
PT ALERT X 4. BREATH SOUNDS CLEAR TO RIGHT SIDE, EXPIRATORY WHEEZE TO LEFT UPPER LOBE, 3L O2 PER NC. TELEMETRY IN PLACE. IV TO RIGHT FOREARM, SALINE LOCKED. PT REPORTING PAIN OF 8/10, MEDICATED PER ORDERS, WILL MONITOR. BED LOW, CALL LIGHT IN REACH. NO OTHER NEEDS AT THIS TIME.
[2019-07-07 11:57] VITALS: Ht 162.6 cm; Wt 88.0 kg
[2019-07-07 13:13] VITALS: BP 158/45
[2019-07-07 16:36] VITALS: BP 152/78
--- NOTE | 2019-07-07 18:39 | MORECARE ---
CASE MANAGEMENT DISCHARGE SUMMARY PATIENT: HUSSEIN DURBIN UNIT: [id number] ADM DATE: 07/02/19 AGE: 63 : 57 SEX: F ROOM/BED: D.2203 AUTHOR: BLAS,DOC PHYSICIAN: REFERRING PHYSICIAN: AMBROCIO POOLE MD DATE OF SERVICE: 07/07/19 Discharge Plan Patient Name: HUSSEIN DURBIN Facility: [facility]:[place] : 1955 Planned Disposition: Home or Self Care Anticipated Discharge Date: Discharge Date: Expected LOS: Initial Reviewer: [email or web address] Initial Review Date: 06/30/2019 Generated: 07/07/19 7:39 pm Comments DCP- Discharge Planning Updated by [id number]: Kristy Palmer on 07/07/19 5:[address] Order received for nebulizer, duoneb UD medication, and to see if patient qualifies for home 02. CM received order for a walk test to check home O2 requirements. CM met with patient who stated she has a nebulizer at home and also has duoneb medication at home. She could not remember the name of her dme provider that provided her nebulizer. CM discussed walk test to see if she qualifies for home o2. Patient had her oxygen off for approx. 5 min and cm checked her O2 sat and it was 97%. Explained if she didn't qualify for O2 with a walk test her insurance would not cover the oxygen. She verbalized understanding. DEMETRIS signed for possible O2 need for no preference on DME company, and placed in the chart. Signed form also left with patient.. DC IMM delivered, explained, signed by the patient, and placed in the chart. Signed form also left with patient. The patient denied the need for home health services at this time. She also denied further known dc needs. CM will continue to follow and will assist as needed with dc plans/needs. Kristy Palmer RN, [facility] DCP- Discharge Planning Updated by [email or web address]: Bailey Warren on 07/02/19 3:[address] Patient Name: HUSSEIN DURBIN Admission Status: ER Accout number: [id number] Admission Date: 07-02-2019 : 1955 Admission Diagnosis: Attending: AMBROCIO POOLE Current LOS: 1 Anticipated DC Date: Planned Disposition: Home or Self Care Primary Insurance: [employer] MEDICARE ADV Discharge Planning Comments: CM met with patient to complete initial dc planning assessment. CM educated patient on the CM role and verbal consent given by patient to complete assessment. Patient lives at home with her brother. At discharge patient plans to return there and feels this is a safe discharge. Her daughter will be her delivery route driver home and is a APPIAN DEVELOPER and helps her our when needed. CM discussed availability of home health, rehab services, and medical equipment. Patient did not want home health, but stated that she is using her friends portable O2 and does not have any of her own. We will do a walk test to see if she can qualify for her own prior to dc. She has a nebulizer at home & would like a walker. [facility] IMM served and explained. Copy placed in chart. Patient denied known discharge needs at this time. CM will continue to follow and will assist as needed with dc plans/needs. Doctorate Of Chiropractic: Bailey Warren DCPIA - Discharge Planning Initial Assessment Updated by [email or web address]: Bailey Warren on 07/02/19 4:29 pm * Is the patient Alert and Oriented? Yes * How many steps to enter\exit or inside your home? FEW * PCP CURTIS * Pharmacy [facility] * Preadmission Environment Home with Family * ADLs Independent * Equipment Nebulizer * Other Equipment USES HER FRIENDS O2 AT TIMES NEEDS A WALKER * List name and contact numbers for known caregivers / representatives who currently or will assist patient after discharge: TAYLOR RUBIO(DAUGHTER) [phone] * Verbal permission to speak to the caregivers and representatives has been obtained from the patient. N/A * Community resources currently utilized None * Additional services required to return to the preadmission environment? Yes * Can the patient safely return to the preadmission environment? Yes * Has this patient been hospitalized within the prior 30 days at any hospital? No Coverage Notice Reviewer: [id number] Marianne Mello Notice Issued Date-Time: 07/01/2019 16:14 Notice Type: Medicare Outpatient Observation Notice Notice Delivered To: Patient Relationship to Patient: Self Welding Systems And Equipment Repairer Name: Delivery Method: HAND - Hand Delivered Alyssa Days: Prior Verbal Notification: Recipient Understood Notice: Yes Recipient Signature: Yes Med Rec Note Co-signed by Attending: Coverage Notice Comment: ONDINA explained, signed, given, copy placed in MR Reviewer: [id number] Marianne Warren Notice Issued Date-Time: 07/02/2019 15:40 Notice Type: IM Discharge Notice Notice Delivered To: Patient Relationship to Patient: Welding Systems And Equipment Repairer Name: Delivery Method: HAND - Hand Delivered Alyssa Days: Prior Verbal Notification: Recipient Understood Notice: Yes Recipient Signature: Yes Med Rec Note Co-signed by Attending: Coverage Notice Comment: Reviewer: [id number] Marianne Warren Notice Issued Date-Time: 07/02/2019 15:40 Notice Type: Patient Choice Letter Notice Delivered To: Patient Relationship to Patient: Welding Systems And Equipment Repairer Name: Delivery Method: HAND - Hand Delivered Alyssa Days: Prior Verbal Notification: Recipient Understood Notice: Yes Recipient Signature: Yes Med Rec Note Co-signed by Attending: Coverage Notice Comment: demetris for myla Robert DP export: 07/02/19 3:44 p Patient Name: HUSSEIN DURBIN Page [id number] at 1839 All edits/amendments must be made on the electronic document DICTATION DATE: 07/07/191837 COSMETIC DENTIST: ANN 07/07/191837 RPT#: [id number] DC DATE: STATUS: ADM IN [facility] [address] [place] [address] END OF REPORT
[2019-07-07 20:31] VITALS: BP 144/78
[2019-07-08 00:57] VITALS: BP 165/83
[2019-07-08 05:08] VITALS: BP 153/79
[2019-07-08 05:31] LABS: BASOPHILS 0.1 % (0-2); EOSINOPHILS 0.1 % (0-7); HEMATOCRIT 35.8 % (36.0-48.0); HEMOGLOBIN 10.9 g/dL (12-16); IMMATURE GRANULOCYTES 1.5 % (0-5); LYMPHOCYTES 8.1 % (15-50); MCH 25.3 pg (26.0-34.0); MCHC 30.4 g/dL (31.0-37.0); MCV 83.3 fL (80.0-100.0); MONOCYTES 3.6 % (2-11); NEUTROPHILS 86.6 % (40-80); PLATELET COUNT 275 10x3/uL (130-400); RDW 16.8 % (11.5-14.5); WBC 16.5 10x3/uL (4.8-10.8)
[2019-07-08 05:47] LABS: ANION GAP 11.9 mmol/L (8-16); CALCIUM 8.8 mg/dL (8.5-10.1); CARBON DIOXIDE 28.6 mmol/L (21.0-32.0); POTASSIUM - SERUM 4.5 mmol/L (3.5-5.1)
[2019-07-08 08:24] VITALS: BP 146/75
--- NOTE | 2019-07-08 09:37 | NUR ---
PT ALERT X 4. BREATH SOUNDS CLEAR BILAT, SOB, 2L O2 PER NC. TELEMETRY IN PLACE. IV TO RIGHT FOREARM, SALINE LOCKED. IV TO LEFT FOREARM, SALINE LOCKED. PT REPORTING PAIN OF 7/10, WILL MONITOR. BED LOW, CALL LIGHT IN REACH. NO OTHER NEEDS AT THIS TIME. F
--- NOTE | 2019-07-08 13:26 | NUR ---
Nutrition follow-up: Diet: Consisstent CHO with po intake 100% of most meals Labs reviewed Wt: 194# Possible d/c in am. RDN following.
[2019-07-08 13:33] VITALS: BP 153/92
[2019-07-08] MEDS ORDERED: OMNICEF300 MG PO (14:31)
[2019-07-08] MEDS ORDERED: VIBRAMYCIN 100100 MG PO (14:31)
[2019-07-08] MEDS ORDERED: MUCINEX600 MG PO (14:32)
[2019-07-08] MEDS ORDERED: CARAFATE1 G PO (14:32)
[2019-07-08] MEDS ORDERED: PROTONIX40 MG PO (14:32)
[2019-07-08] MEDS ORDERED: FLORAJEN3 CAPS460 MG PO (14:32)
[2019-07-08] MEDS ORDERED: PREDNISONE10 MG PO (14:33)
[2019-07-08] MEDS ORDERED: Tessalon Perle PO (14:34)
[2019-07-08] MEDS ORDERED: Saline Mist NASAL SP NASAL (14:34)
[2019-07-08] MEDS ORDERED: SINGULAIR10 MG PO (14:34)
--- NOTE | 2019-07-08 15:45 | MORECARE ---
CASE MANAGEMENT DISCHARGE SUMMARY PATIENT: HUSSEIN DURBIN UNIT: [id number] ADM DATE: 07/02/19 AGE: 63 : 57 SEX: F ROOM/BED: D.2203 AUTHOR: BLAS,DOC PHYSICIAN: REFERRING PHYSICIAN: AMBROCIO POOLE MD DATE OF SERVICE: 07/08/19 Discharge Plan Patient Name: HUSSEIN DURBIN Facility: [facility]:[place] : 1955 Planned Disposition: Home or Self Care Anticipated Discharge Date: Discharge Date: Expected LOS: Initial Reviewer: [email or web address] Initial Review Date: 06/30/2019 Generated: 07/08/19 4:45 pm Comments DCP- Discharge Planning Updated by [email or web address]: Bailey Warren on 07/08/19 2:[address] Patient did not qualify for home o2, she was 99% on room air & 98% with exertion DCP- Discharge Planning Updated by [email or web address]: Kristy Palmer on 07/07/19 5:[address] Order received for nebulizer, duoneb UD medication, and to see if patient qualifies for home 02. CM received order for a walk test to check home O2 requirements. CM met with patient who stated she has a nebulizer at home and also has duoneb medication at home. She could not remember the name of her dme provider that provided her nebulizer. CM discussed walk test to see if she qualifies for home o2. Patient had her oxygen off for approx. 5 min and cm checked her O2 sat and it was 97%. Explained if she didn't qualify for O2 with a walk test her insurance would not cover the oxygen. She verbalized understanding. GOLDEN signed for possible O2 need for no preference on DME company, and placed in the chart. Signed form also left with patient.. DC IMM delivered, explained, signed by the patient, and placed in the chart. Signed form also left with patient. The patient denied the need for home health services at this time. She also denied further known dc needs. CM will continue to follow and will assist as needed with dc plans/needs. Kristy Palmer RN, [facility] DCP- Discharge Planning Updated by [email or web address]: Bailey Warren on 07/02/19 3:[address] Patient Name: HUSSEIN DURBIN Admission Status: ER Accout number: [id number] Admission Date: 07-02-2019 : 1955 Admission Diagnosis: Attending: AMBROCIO POOLE Current LOS: 1 Anticipated DC Date: Planned Disposition: Home or Self Care Primary Insurance: [employer] ADV Discharge Planning Comments: CM met with patient to complete initial dc planning assessment. CM educated patient on the CM role and verbal consent given by patient to complete assessment. Patient lives at home with her brother. At discharge patient plans to return there and feels this is a safe discharge. Her daughter will be her airport shuttle driver home and is a [employer] and helps her our when needed. CM discussed availability of home health, rehab services, and medical equipment. Patient did not want home health, but stated that she is using her friends portable O2 and does not have any of her own. We will do a walk test to see if she can qualify for her own prior to dc. She has a nebulizer at home & would like a walker. [facility] served and explained. Copy placed in chart. Patient denied known discharge needs at this time. CM will continue to follow and will assist as needed with dc plans/needs. Change Coordinator: Bailey Warren DCPIA - Discharge Planning Initial Assessment Updated by [email or web address]: Bailey Warren on 07/02/19 4:29 pm * Is the patient Alert and Oriented? Yes * How many steps to enter\exit or inside your home? FEW * PCP ACEVEDO * Pharmacy [facility] * Preadmission Environment Home with Family * ADLs Independent * Equipment Nebulizer * Other Equipment USES HER FRIENDS O2 AT TIMES NEEDS A WALKER * List name and contact numbers for known caregivers / representatives who currently or will assist patient after discharge: TAYLOR RUBIO(DAUGHTER) [phone] * Verbal permission to speak to the caregivers and representatives has been obtained from the patient. N/A * Community resources currently utilized None * Additional services required to return to the preadmission environment? Yes * Can the patient safely return to the preadmission environment? Yes * Has this patient been hospitalized within the prior 30 days at any hospital? No Coverage Notice Reviewer: [email or web address] Marianne Mello Notice Issued Date-Time: 07/01/2019 16:14 Notice Type: Medicare Outpatient Observation Notice Notice Delivered To: Patient Relationship to Patient: Self Full Charge Bookkeeper Name: Delivery Method: HAND - Hand Delivered Alyssa Days: Prior Verbal Notification: Recipient Understood Notice: Yes Recipient Signature: Yes Med Rec Note Co-signed by Attending: Coverage Notice Comment: ONDINA explained, signed, given, copy placed in MR Reviewer: [id number] Marianne Warren Notice Issued Date-Time: 07/02/2019 15:40 Notice Type: IM Discharge Notice Notice Delivered To: Patient Relationship to Patient: Full Charge Bookkeeper Name: Delivery Method: HAND - Hand Delivered Alyssa Days: Prior Verbal Notification: Recipient Understood Notice: Yes Recipient Signature: Yes Med Rec Note Co-signed by Attending: Coverage Notice Comment: Reviewer: [id number] Marianne Warren Notice Issued Date-Time: 07/02/2019 15:40 Notice Type: Patient Choice Letter Notice Delivered To: Patient Relationship to Patient: Full Charge Bookkeeper Name: Delivery Method: HAND - Hand Delivered Alyssa Days: Prior Verbal Notification: Recipient Understood Notice: Yes Recipient Signature: Yes Med Rec Note Co-signed by Attending: Coverage Notice Comment: [facility] maxim lanza Reviewer: [id number] Marianne Palmer Notice Issued Date-Time: 07/07/2019 18:30 Notice Type: IM Discharge Notice Notice Delivered To: Patient Relationship to Patient: Full Charge Bookkeeper Name: Delivery Method: HAND - Hand Delivered Alyssa Days: Prior Verbal Notification: Recipient Understood Notice: Yes Recipient Signature: Yes Med Rec Note Co-signed by Attending: Coverage Notice Comment: Last DP export: 07/07/19 5:39 Patient Name: HUSSEIN DURBIN Page [id number] at 1545 All edits/amendments must be made on the electronic document DICTATION DATE: 07/08/19 1545 SONOSCOPE OPERATOR: ANN 07/08/19 1545 RPT#: [id number] DC DATE: STATUS: ADM IN [facility] [address] [place] [address] END OF REPORT
[2019-07-08 16:07] VITALS: BP 156/71
--- NOTE | 2019-07-08 17:24 | NUR ---
DISCHARGE PAPERWORK SIGNED, ALL QUESTIONS ANSWERED. IV TO RIGHT AND LEFT FOREARMS DC'D, TIPS INTACT. FLU SHOT GIVEN PER ORDERS. ESCORTED OUT BY WHEELCHAIR.
--- NOTE | 2019-07-09 14:00 | MORECARE ---
CASE MANAGEMENT DISCHARGE SUMMARY PATIENT: HUSSEIN DURBIN UNIT: [id number] ADM DATE: 07/02/19 AGE: 63 : 57 SEX: F ROOM/BED: D.2203 AUTHOR: BLAS,DOC PHYSICIAN: REFERRING PHYSICIAN: AMBORCIO POOLE MD DATE OF SERVICE: 07/09/19 Discharge Plan Patient Name: HUSSEIN DURBIN Facility: [facility]:[place] : 1955 Planned Disposition: Home or Self Care Anticipated Discharge Date: Discharge Date: 07/08/2019 Expected LOS: 0 Initial Reviewer: [id number] Initial Review Date: 06/30/2019 Generated: 07/09/19 3:00 pm Comments DCP- Discharge Planning Updated by [email or web address]: Bailey Warren on 07/08/19 2:[address] Patient did not qualify for home o2, she was 99% on room air & 98% with exertion DCP- Discharge Planning Updated by [id number]: Kristy Palmer on 07/07/19 5:[address] Order received for nebulizer, duoneb UD medication, and to see if patient qualifies for home 02. CM received order for a walk test to check home O2 requirements. CM met with patient who stated she has a nebulizer at home and also has duoneb medication at home. She could not remember the name of her dme provider that provided her nebulizer. CM discussed walk test to see if she qualifies for home o2. Patient had her oxygen off for approx. 5 min and cm checked her O2 sat and it was 97%. Explained if she didn't qualify for O2 with a walk test her insurance would not cover the oxygen. She verbalized understanding. DEMETRIS signed for possible O2 need for no preference on DME company, and placed in the chart. Signed form also left with patient.. DC IMM delivered, explained, signed by the patient, and placed in the chart. Signed form also left with patient. The patient denied the need for home health services at this time. She also denied further known dc needs. CM will continue to follow and will assist as needed with dc plans/needs. Kristy Palmer RN, [facility] DCP- Discharge Planning Updated by [email or web address]: Bailey Warren on 07/02/19 3:[address] Patient Name: HUSSEIN DURBIN Admission Status: ER Accout number: [id number] Admission Date: 07-02-2019 : 1955 Admission Diagnosis: Attending: AMBROCIO POOLE Current LOS: 1 Anticipated DC Date: Planned Disposition: Home or Self Care Primary Insurance: [employer]ICARE ADV Discharge Planning Comments: CM met with patient to complete initial dc planning assessment. CM educated patient on the CM role and verbal consent given by patient to complete assessment. Patient lives at home with her brother. At discharge patient plans to return there and feels this is a safe discharge. Her daughter will be her rolloff driver home and is a INDUSTRIAL FURNACE F[employer]RICATOR and helps her our when needed. CM discussed availability of home health, rehab services, and medical equipment. Patient did not want home health, but stated that she is using her friends portable O2 and does not have any of her own. We will do a walk test to see if she can qualify for her own prior to dc. She has a nebulizer at home & would like a walker. [facility] [place]. IMM served and explained. Copy placed in chart. Patient denied known discharge needs at this time. CM will continue to follow and will assist as needed with dc plans/needs. Gut Carrier: Bailey Warren DCPIA - Discharge Planning Initial Assessment Updated by [email or web address]: Bailey Warren on 07/02/19 4:29 pm * Is the patient Alert and Oriented? Yes * How many steps to enter\exit or inside your home? FEW * PCP ACEVEDO * Pharmacy [facility] * Preadmission Environment Home with Family * ADLs Independent * Equipment Nebulizer * Other Equipment USES HER FRIENDS O2 AT TIMES NEEDS A WALKER * List name and contact numbers for known caregivers / representatives who currently or will assist patient after discharge: TAYLOR RUBIO(DAUGHTER) [phone] * Verbal permission to speak to the caregivers and representatives has been obtained from the patient. N/A * Community resources currently utilized None * Additional services required to return to the preadmission environment? Yes * Can the patient safely return to the preadmission environment? Yes * Has this patient been hospitalized within the prior 30 days at any hospital? No Coverage Notice Reviewer: [id number] Marianne Mello Notice Issued Date-Time: 07/01/2019 16:14 Notice Type: Medicare Outpatient Observation Notice Notice Delivered To: Patient Relationship to Patient: Self Fire Control Technician B Name: Delivery Method: HAND - Hand Delivered Alyssa Days: Prior Verbal Notification: Recipient Understood Notice: Yes Recipient Signature: Yes Med Rec Note Co-signed by Attending: Coverage Notice Comment: ONDINA explained, signed, given, copy placed in MR Reviewer: [id number] Marianne Warren Notice Issued Date-Time: 07/02/2019 15:40 Notice Type: IM Discharge Notice Notice Delivered To: Patient Relationship to Patient: Fire Control Technician B Name: Delivery Method: HAND - Hand Delivered Alyssa Days: Prior Verbal Notification: Recipient Understood Notice: Yes Recipient Signature: Yes Med Rec Note Co-signed by Attending: Coverage Notice Comment: Reviewer: [id number] Marianne Warren Notice Issued Date-Time: 07/02/2019 15:40 Notice Type: Patient Choice Letter Notice Delivered To: Patient Relationship to Patient: Fire Control Technician B Name: Delivery Method: HAND - Hand Delivered Alyssa Days: Prior Verbal Notification: Recipient Understood Notice: Yes Recipient Signature: Yes Med Rec Note Co-signed by Attending: Coverage Notice Comment: demetris lanza Reviewer: [id number] Marianne Palmer Notice Issued Date-Time: 07/07/2019 18:30 Notice Type: IM Discharge Notice Notice Delivered To: Patient Relationship to Patient: Fire Control Technician B Name: Delivery Method: HAND - Hand Delivered Alyssa Days: Prior Verbal Notification: Recipient Understood Notice: Yes Recipient Signature: Yes Med Rec Note Co-signed by Attending: Coverage Notice Comment: Last DP export: 07/08/19 2:45 Patient Name: HUSSEIN DURBIN Page [id number] at 1400 All edits/amendments must be made on the electronic document DICTATION DATE: 07/09/19 1359 PRODUCT APPLICATIONS SCIENTIST: DM 07/09/19 1359 RPT#: [id number] DC DATE:07/08/19 STATUS: DIS IN [facility] [address] [place] [address] END OF REPORT
[2019-08-27] MEDS ORDERED: OXYCODONE HCL5 M1 PO (16:57)
== END 2019-07-08 17:26 | disposition home or self-care (01) | DRG 202 ==
LOC: D.ER 20:39 → D.MS 22:44 → OBSVTIME 22:44 → D.MS 22:44
PROVIDERS: Family Medicine; ADMIT Internal Medicine Nephrology; ATTEND Internal Medicine Nephrology
DX: J20.9 Acute bronchitis, unspecified (principal); J44.1 Chronic obstructive pulmonary disease with (acute) exacerbation; J96.10 Chronic respiratory failure, unspecified whether with hypoxia or hypercapnia; D50.9 Iron deficiency anemia, unspecified; E78.5 Hyperlipidemia, unspecified; K21.9 Gastro-esophageal reflux disease without esophagitis; I25.10 Atherosclerotic heart disease of native coronary artery without angina pectoris; I73.9 Peripheral vascular disease, unspecified; I10 Essential (primary) hypertension; Z95.0 Presence of cardiac pacemaker; D72.829 Elevated white blood cell count, unspecified; I49.5 Sick sinus syndrome; K44.9 Diaphragmatic hernia without obstruction or gangrene; K22.4 Dyskinesia of esophagus; E11.65 Type 2 diabetes mellitus with hyperglycemia

== ENCOUNTER 2019-07-10 11:14 | Inpatient (IN) | payer MEDICARE, MEDICAID ==
[~2019-07-10] VITALS: Ht 162.6 cm; Wt 88.0 kg
[~2019-07-10 11:14] MED LIST changes: +ADVAIR 250/501 DISK INH; +OMEPRAZOLE20 M1 PO; +Saline Mist NASAL SP NASAL; +Tessalon Perle PO
[2019-07-10 12:12] LABS: APTT 33.9 SECONDS (22.8-39.4); INR 1.36 (0.85-1.17); PROTIME 16.2 SECONDS (11.6-15.0)
[2019-07-10 12:22] LABS: ALBUMIN 2.9 g/dL (3.4-5.0); ALKALINE PHOSPHATASE 68 U/L (46-116); ALT (SGPT) 29 U/L (10-68); BILIRUBIN - TOTAL 0.43 mg/dL (0.2-1.3); CALC OSMOLALITY 281 mosm/kg (275-300); CALCIUM 8.4 mg/dL (8.5-10.1); CARBON DIOXIDE 30.8 mmol/L (21.0-32.0); CHLORIDE - SERUM 103 mmol/L (98-107); CREATININE - SERUM 0.8 mg/dL (0.6-1.3); GLUCOSE 108 mg/dL (74-106); POTASSIUM - SERUM 3.5 mmol/L (3.5-5.1); PROTEIN - SERUM 6.4 g/dL (6.4-8.2); SODIUM 140 mmol/L (136-145); UREA NITROGEN 18 mg/dL (7-18); eGFR NON AFRICAN AMERICAN 77 mL/min (90-120)
--- NOTE | 2019-07-10 12:26 | NUR ---
PT IN ROOM WATCHING TV. DENIES PAIN OR NEEDS AT THINS TIME. RR EVEN UNLABORED. DENIES NEEDS A THIS TIME. BED LOW LOCKED POSITION, SIDE RAILS UP TIMES TWO, CALL LIGHT WITHIN REACH.
[2019-07-10 12:33] LABS: CKMB 0.6 U/L (0.0-3.6); CREATINE KINASE 101 UL (21-215); PRO BNP 216 pg/mL (0-125); TROPONIN-I < 0.017 ng/mL (0.000-0.060)
[2019-07-10 12:35] LABS: BASOPHILS 0.1 % (0-2); EOSINOPHILS 1.9 % (0-7); HEMATOCRIT 38.1 % (36.0-48.0); HEMOGLOBIN 11.6 g/dL (12-16); IMMATURE GRANULOCYTES 0.9 % (0-5); LYMPHOCYTES 26.3 % (15-50); MCH 25.9 pg (26.0-34.0); MCHC 30.4 g/dL (31.0-37.0); MEAN PLATELET VOLUME 10.8 fL (7.4-10.4); MONOCYTES 5.1 % (2-11); NEUTROPHILS 65.7 % (40-80); RBC 4.48 10x6/uL (4.00-5.40); RDW 17.5 % (11.5-14.5); WBC 10.7 10x3/uL (4.8-10.8)
[2019-07-10 12:36] LABS: PLATELET COUNT 153 10x3/uL (130-400)
--- NOTE | 2019-07-10 14:37 | NUR ---
REPORT CALLED TO [facility]IN ON [facility]. NEDA BURCH RN TRYING TO START LINE WITH ULTRASOUND MACHINE
--- NOTE | 2019-07-10 14:54 | NUR ---
VASCULAR NURSE AT BEDSIDE
--- NOTE | 2019-07-10 14:58 | MORECARE ---
CASE MANAGEMENT DISCHARGE SUMMARY PATIENT: HUSSEIN DURBIN TOREY UNIT: [id number] ADM DATE: 07/10/19 AGE: 63 : 57 SEX: F ROOM/BED: D.2236 AUTHOR: BRITTNI ODONNELL PHYSICIAN: REFERRING PHYSICIAN: MUKESH MORENO MD DATE OF SERVICE: 07/10/19 Discharge Plan Patient Name: HUSSEIN DURBIN [facility] : 1955 Planned Disposition: Home Anticipated Discharge Date: 07/12/19 Discharge Date: Expected LOS: 2 Initial Reviewer: [email or web address] Initial Review Date: 07/10/2019 Generated: 07/10/19 3:57 pm Patient Name: HUSSEIN DURBIN Page 15354 at 1458 All edits/amendments must be made on the electronic document DICTATION DATE: 07/10/191456 SHAREHOLDER: ANN 07/10/191456 RPT#: [id number] DC DATE: STATUS: ADM IN [facility] [address] [place] [address] END OF REPORT
[2019-07-10 16:11] VITALS: BP 154/66; BMI 33.3
--- NOTE | 2019-07-10 16:32 | MORECARE ---
CASE MANAGEMENT DISCHARGE SUMMARY PATIENT: HUSSEIN DURBIN TOREY UNIT: [id number] ADM DATE: 07/10/19 AGE: 63 : 57 SEX: F ROOM/BED: D.2236 AUTHOR: BRITTNI ODONNELL PHYSICIAN: REFERRING PHYSICIAN: MUKESH MORENO MD DATE OF SERVICE: 07/10/19 Discharge Plan Patient Name: HUSSEIN DURBIN [facility] : 1955 Planned Disposition: Home Anticipated Discharge Date: 07/12/19 Discharge Date: Expected LOS: 2 Initial Reviewer: [email or web address] Initial Review Date: 07/10/2019 Generated: 07/10/19 5:31 pm DCPIA - Discharge Planning Initial Assessment Updated by [email or web address]: Kristy Palmer on 07/10/19 4:25 pm * Is the patient Alert and Oriented? Yes * How many steps to enter\exit or inside your home? Few * PCP Dr. Vargas * Pharmacy [facility] * Preadmission Environment Home with Family * ADLs Independent * Equipment Nebulizer * Other Equipment Did not qualify for home O2 on 07/08/19. * List name and contact numbers for known caregivers / representatives who currently or will assist patient after discharge: Radha Hector radha [phone] * Verbal permission to speak to the caregivers and representatives has been obtained from the patient. Yes * Community resources currently utilized None * Additional services required to return to the preadmission environment? No * Can the patient safely return to the preadmission environment? Yes * Has this patient been hospitalized within the prior 30 days at any hospital? Yes Last DP export: 07/10/19 1:58 Patient Name: HUSSEIN DURBIN Page 77263 at 1632 All edits/amendments must be made on the electronic document DICTATION DATE: 07/10/191630 CHARACTER IMPERSONATOR: ANN 07/10/191630 RPT#: [id number] DC DATE: STATUS: ADM IN [facility] [address] [place] [address] END OF REPORT
--- NOTE | 2019-07-10 16:41 | NUR ---
CALLED TO GET TELEMETRY. NO MONITORS AVAILABLE.
--- NOTE | 2019-07-10 16:42 | NUR ---
FAMILY IN ROOM. PATIENT EATING CHILI. WANTING TO KNOW WHAT WAS AVAILABLE FOR DINNER. PROVIDED THEM WITH DIETARY EXTENSION.
--- NOTE | 2019-07-10 16:42 | MORECARE ---
CASE MANAGEMENT DISCHARGE SUMMARY PATIENT: HUSSEIN DURBIN UNIT: [id number] ADM DATE: 07/10/19 AGE: 63 : 57 SEX: F ROOM/BED: D.2236 AUTHOR: BLAS,DOC PHYSICIAN: REFERRING PHYSICIAN: MUKESH MORENO MD DATE OF SERVICE: 07/10/19 Discharge Plan Patient Name: HUSSEIN DURBIN Facility: [facility]:[place] : 1955 Planned Disposition: Home Anticipated Discharge Date: 07/12/19 Discharge Date: Expected LOS: 2 Initial Reviewer: [email or web address] Initial Review Date: 07/10/2019 Generated: 07/10/19 5:41 pm DCP- Discharge Planning Updated by [email or web address]: Kristy Palmer on 07/10/19 3:[address] DC PLAN: Return home - Refused Home Health at dc. ANTICIPATED DC NEEDS: Denied known dc needs. CM met with patient to complete initial dc planning assessment. CM educated patient on the CM role and verbal consent given by patient to complete assessment. CM verified patient's address, phone number, and emergency contact phone numbers. Patient lives at home with her brother. At discharge patient plans to return home and feels this is a safe discharge. CM discussed availability of home health, rehab services, and medical equipment. Patient refused home health services. Patient just dc from hospital on 07/08/19 w/ copd exacerbation. Patient refused HH services at dc. She reports she did get her dc medication filled, however she only took two doses of the vibromycin stating they made her throat swell. She reports compliance with all other medications. Patient denied known discharge needs at this time. CM will continue to follow and will assist as needed with dc plans/needs. DCPIA - Discharge Planning Initial Assessment Updated by [email or web address]: Kristy Palmer on 07/10/19 4:25 pm * Is the patient Alert and Oriented? Yes * How many steps to enter\exit or inside your home? Few * PCP Dr. Vargas * Pharmacy [facility] on [facility] * Preadmission Environment Home with Family * ADLs Independent * Equipment Nebulizer * Other Equipment Did not qualify for home O2 on 07/08/19. * List name and contact numbers for known caregivers / representatives who currently or will assist patient after discharge: Radha garcia - [phone] * Verbal permission to speak to the caregivers and representatives has been obtained from the patient. Yes * Community resources currently utilized None * Additional services required to return to the preadmission environment? No * Can the patient safely return to the preadmission environment? Yes * Has this patient been hospitalized within the prior 30 days at any hospital? Yes Last DP export: 07/10/19 3:32 Patient Name: HUSSEIN DURBIN Page 54899 at 1642 All edits/amendments must be made on the electronic document DICTATION DATE: 07/10/191640 SYSTEMS SUPPORT OFFICER: ANN 07/10/191640 RPT#: [id number] DC DATE: STATUS: ADM IN [facility] [address] [place] [address] END OF REPORT
[2019-07-10 19:46] LABS: CKMB 0.5 U/L (0.0-3.6); CREATINE KINASE 60 UL (21-215); TROPONIN-I < 0.017 ng/mL (0.000-0.060)
[2019-07-10 20:38] VITALS: BP 127/60
[2019-07-11 00:46] LABS: CKMB 0.3 U/L (0.0-3.6); CREATINE KINASE 52 UL (21-215)
[2019-07-11 00:57] LABS: TROPONIN-I < 0.017 ng/mL (0.000-0.060)
[2019-07-11 04:41] VITALS: BP 141/75
--- NOTE | 2019-07-11 05:00 | NUR ---
I have reviewed this patient and I concur with the Shift Assessment completed by the Licensed Practical Nurse today this shift.
[2019-07-11 06:35] LABS: BASOPHILS 0 % (0-2); EOSINOPHILS 2.1 % (0-7); HEMATOCRIT 32.2 % (36.0-48.0); HEMOGLOBIN 9.6 g/dL (12-16); IMMATURE GRANULOCYTES 0.7 % (0-5); LYMPHOCYTES 26.2 % (15-50); MCH 25.4 pg (26.0-34.0); MCHC 29.8 g/dL (31.0-37.0); MCV 85.2 fL (80.0-100.0); MEAN PLATELET VOLUME 9.7 fL (7.4-10.4); MONOCYTES 7.5 % (2-11); NEUTROPHILS 63.5 % (40-80); PLATELET COUNT 166 10x3/uL (130-400); RBC 3.78 10x6/uL (4.00-5.40); RDW 17.6 % (11.5-14.5); WBC 8.3 10x3/uL (4.8-10.8)
--- NOTE | 2019-07-11 07:00 | NUR ---
PATIENT RECIEVED RESTING WITH NO NEEDS VOICED. ADMITTED FOR RLL PNEUMONIA. RESPIRATIONS REGULAR AND NON-LABORED. 02 3LNC. CL IN REACH
[2019-07-11 07:07] LABS: ALBUMIN 2.5 g/dL (3.4-5.0); ALKALINE PHOSPHATASE 63 U/L (46-116); ALT (SGPT) 29 U/L (10-68); BILIRUBIN - TOTAL 0.41 mg/dL (0.2-1.3); CALC OSMOLALITY 281 mosm/kg (275-300); CARBON DIOXIDE 32.8 mmol/L (21.0-32.0); CHLORIDE - SERUM 105 mmol/L (98-107); CKMB 0.1 U/L (0.0-3.6); CREATINE KINASE 34 UL (21-215); CREATININE - SERUM 0.8 mg/dL (0.6-1.3); GLUCOSE 150 mg/dL (74-106); MAGNESIUM - SERUM 2.3 mg/dL (1.8-2.4); POTASSIUM - SERUM 3.8 mmol/L (3.5-5.1); PROTEIN - SERUM 5.6 g/dL (6.4-8.2); SODIUM 139 mmol/L (136-145); TROPONIN-I < 0.017 ng/mL (0.000-0.060); UREA NITROGEN 16 mg/dL (7-18); eGFR NON AFRICAN AMERICAN 77 mL/min (90-120)
[2019-07-11 08:43] VITALS: BP 125/74
[2019-07-11 12:35] LABS: APPEARANCE CLEAR (CLEAR); BILIRUBIN NEGATIVE (NEGATIVE); COLOR YELLOW (YELLOW); GLUCOSE NEGATIVE (NEGATIVE); KETONE NEGATIVE (NEGATIVE); NITRITE NEGATIVE (NEGATIVE); PROTEIN NEGATIVE (NEGATIVE); UROBILINOGEN NORMAL (NORMAL)
[2019-07-11 12:54] VITALS: BP 116/53
--- NOTE | 2019-07-11 13:18 | NUR ---
OT NOTE: UPON ENTERING ROOM, PT WAS JUST RETURNING FROM BATHROOM. AMBULATED INDEP WITHIN ROOM. BACK INTO BED INDEP. STATED THAT SHE WAS DOING FINE AND DID NOT NEED THERAPY SERVICES. JEROD ACEVEDO, OTR/L
[2019-07-11 13:42] VITALS: Ht 162.6 cm; Wt 88.0 kg
--- NOTE | 2019-07-11 18:22 | NUR ---
MIDLINE ACCIDENTILY PULLED OUT WHEN PATIENT WAS GOING TO RESTROOM. COVERED SITE WITH GAUZE AND TAPE WITH MINIMAL BLEEDING NOTED. PERIPHERAL IV STARTED TO RIGHT FOREARM X1 STICK WITH 22G, PATIENT TOLERATED WELL
[2019-07-11 18:45] VITALS: BP 147/79
[2019-07-11 20:00] VITALS: BP 164/78
--- NOTE | 2019-07-11 20:00 | NUR ---
A/O WITH NO SIGNS OF ACUTE DISTRESS. IV TO THE RT WRIST WITH NO REDNESS OR SWELLING. NC @3L. COMPLAINING OF 5/10 PAIN IN BACK WILL GIVE PRN PAIN MED. CONTINUE WITH PLAN OF CARE.
[2019-07-12] VITALS: BP 127/70
[2019-07-12 04:00] VITALS: BP 152/86
[2019-07-12 06:25] LABS: BASOPHILS 0 % (0-2); EOSINOPHILS 0 % (0-7); HEMATOCRIT 33.1 % (36.0-48.0); IMMATURE GRANULOCYTES 0.4 % (0-5); LYMPHOCYTES 5.2 % (15-50); MCH 25.7 pg (26.0-34.0); MCHC 30.2 g/dL (31.0-37.0); MCV 85.1 fL (80.0-100.0); MEAN PLATELET VOLUME 10.5 fL (7.4-10.4); MONOCYTES 1.3 % (2-11); NEUTROPHILS 93.1 % (40-80); PLATELET COUNT 188 10x3/uL (130-400); RBC 3.89 10x6/uL (4.00-5.40); RDW 17.1 % (11.5-14.5); WBC 9.8 10x3/uL (4.8-10.8)
[2019-07-12 06:43] LABS: ANION GAP 10.9 mmol/L (8-16); CALCIUM 8.4 mg/dL (8.5-10.1); CARBON DIOXIDE 27.2 mmol/L (21.0-32.0); MAGNESIUM - SERUM 2.4 mg/dL (1.8-2.4)
[2019-07-12 06:44] LABS: POTASSIUM - SERUM 5.1 mmol/L (3.5-5.1)
[2019-07-12 08:47] VITALS: BP 146/79
[2019-07-12 13:13] VITALS: BP 150/71
--- NOTE | 2019-07-12 13:58 | MORECARE ---
CASE MANAGEMENT DISCHARGE SUMMARY PATIENT: HUSSEIN DURBIN UNIT: [id number] ADM DATE: 07/10/19 AGE: 63 : 57 SEX: F ROOM/BED: D.2236 AUTHOR: BLAS,DOC PHYSICIAN: REFERRING PHYSICIAN: MUKESH MORENO MD DATE OF SERVICE: 07/12/19 Discharge Plan Patient Name: HUSSEIN DURBIN Facility: [facility]:[place] : 1955 Planned Disposition: Home Anticipated Discharge Date: 07/12/19 Discharge Date: Expected LOS: 2 Initial Reviewer: [email or web address] Initial Review Date: 07/10/2019 Generated: 07/12/19 2:57 pm DCP- Discharge Planning Updated by [email or web address]: Kristy Palmer on 07/10/19 3:[address] DC PLAN: Return home - Refused Home Health at dc. ANTICIPATED DC NEEDS: Denied known dc needs. CM met with patient to complete initial dc planning assessment. CM educated patient on the CM role and verbal consent given by patient to complete assessment. CM verified patient's address, phone number, and emergency contact phone numbers. Patient lives at home with her brother. At discharge patient plans to return home and feels this is a safe discharge. CM discussed availability of home health, rehab services, and medical equipment. Patient refused home health services. Patient just dc from hospital on 07/08/19 w/ copd exacerbation. Patient refused HH services at dc. She reports she did get her dc medication filled, however she only took two doses of the vibromycin stating they made her throat swell. She reports compliance with all other medications. Patient denied known discharge needs at this time. CM will continue to follow and will assist as needed with dc plans/needs. DCPIA - Discharge Planning Initial Assessment Updated by [email or web address]: Kristy Palmer on 07/10/19 4:25 pm * Is the patient Alert and Oriented? Yes * How many steps to enter\exit or inside your home? Few * PCP Dr. Vargas * Pharmacy [facility] on [facility] * Preadmission Environment Home with Family * ADLs Independent * Equipment Nebulizer * Other Equipment Did not qualify for home O2 on 07/08/19. * List name and contact numbers for known caregivers / representatives who currently or will assist patient after discharge: Radha garcia - [phone] * Verbal permission to speak to the caregivers and representatives has been obtained from the patient. Yes * Community resources currently utilized None * Additional services required to return to the preadmission environment? No * Can the patient safely return to the preadmission environment? Yes * Has this patient been hospitalized within the prior 30 days at any hospital? Yes External Providers External Provider: Kaylyn Arredondo Contact Date: Service Request Date: Service Type: Resolution: Reviewer: Comments: Coverage Notice Reviewer: [email or web address] Marianne Mello Notice Issued Date-Time: 07/12/2019 13:48 Notice Type: IM Discharge Notice Notice Delivered To: Patient Relationship to Patient: Self Software Release Engineer Name: Delivery Method: HAND - Hand Delivered Alyssa Days: Prior Verbal Notification: Recipient Understood Notice: Yes Recipient Signature: Yes Med Rec Note Co-signed by Attending: Coverage Notice Comment: IMM explained, signed, given, copy placed in MR Last DP export: 07/10/19 3:42 Patient Name: HUSSEIN DURBIN Page 85034 at 1358 All edits/amendments must be made on the electronic document DICTATION DATE: 07/12/191356 STONE ENGRAVER: ANN 07/12/191356 RPT#: [id number] DC DATE: STATUS: ADM IN [facility] [address] [place] [address] END OF REPORT
--- NOTE | 2019-07-12 14:07 | MORECARE ---
CASE MANAGEMENT DISCHARGE SUMMARY PATIENT: HUSSEIN DURBIN UNIT: [id number] ADM DATE: 07/10/19 AGE: 63 : 57 SEX: F ROOM/BED: D.2236 AUTHOR: BRITTNI ODONNELL PHYSICIAN: REFERRING PHYSICIAN: MUKESH MORENO MD DATE OF SERVICE: 07/12/19 Discharge Plan Patient Name: HUSSEIN DURBIN Facility: [facility]:[place] : 1955 Planned Disposition: Home Anticipated Discharge Date: 07/12/19 Discharge Date: Expected LOS: 2 Initial Reviewer: [email or web address] Initial Review Date: 07/10/2019 Generated: 07/12/19 3:06 pm Comments DCP- Discharge Planning Updated by [id number]: Fiordaliza Mello on 07/12/19 1:[address] OXYGEN SATURATION IS 86% ON ROOM AIR WITH EXERTION, WHICH QUALIFIES HER FOR HOME OXYGEN WITH PORTABILITY. I CALLED DAVID WITH [facility] AND CLINICAL FAXED. SHE STATES SHE WILL BE HERE THIS AFTERNOON WITH PORTABLE OXYGEN SET UP. FAMILY AT BEDSIDE. CM WILL CONTINUE TO FOLLOW AND ASSIST WITH DISCHARGE PLANNING/NEEDS. DCP- Discharge Planning Updated by [id number]: Kristy Palmer on 07/10/19 3:[address] DC PLAN: Return home - Refused Home Health at [facility]. ANTICIPATED DC NEEDS: Denied known dc needs. CM met with patient to complete initial dc planning assessment. CM educated patient on the CM role and verbal consent given by patient to complete assessment. CM verified patient's address, phone number, and emergency contact phone numbers. Patient lives at home with her brother. At discharge patient plans to return home and feels this is a safe discharge. CM discussed availability of home health, rehab services, and medical equipment. Patient refused home health services. Patient just dc from hospital on 07/08/19 w/ copd exacerbation. Patient refused HH services at [facility]. She reports she did get her dc medication filled, however she only took two doses of the vibromycin stating they made her throat swell. She reports compliance with all other medications. Patient denied known discharge needs at this time. CM will continue to follow and will assist as needed with dc plans/needs. DCPIA - Discharge Planning Initial Assessment Updated by [id number]: Kristy Palmer on 07/10/19 4:25 pm * Is the patient Alert and Oriented? Yes * How many steps to enter\exit or inside your home? Few * PCP Dr. Vargas * Pharmacy [facility] on [facility] * Preadmission Environment Home with Family * ADLs Independent * Equipment Nebulizer * Other Equipment Did not qualify for home O2 on 07/08/19. * List name and contact numbers for known caregivers / representatives who currently or will assist patient after discharge: Radha Young radha [phone] * Verbal permission to speak to the caregivers and representatives has been obtained from the patient. Yes * Community resources currently utilized None * Additional services required to return to the preadmission environment? No * Can the patient safely return to the preadmission environment? Yes * Has this patient been hospitalized within the prior 30 days at any hospital? Yes Coverage Notice Reviewer: [email or web address] Marianne Mello Notice Issued Date-Time: 07/12/2019 13:48 Notice Type: IM Discharge Notice Notice Delivered To: Patient Relationship to Patient: Self Av Specialist Name: Delivery Method: HAND - Hand Delivered Alyssa Days: Prior Verbal Notification: Recipient Understood Notice: Yes Recipient Signature: Yes Med Rec Note Co-signed by Attending: Coverage Notice Comment: IMM explained, signed, given, copy placed in MR Last DP export: 07/12/19 12:58 Patient Name: HUSSEIN DURBIN Page [id number] at 1407 All edits/amendments must be made on the electronic document DICTATION DATE: 07/12/191405 PRODUCT SUPPORT CONSULTANT: ANN 07/12/191405 RPT#: [id number] DC DATE: STATUS: ADM IN [facility] [address] [address] END OF REPORT
--- NOTE | 2019-07-12 15:07 | NUR ---
22 gauge iv started on right forearm x 1 stick. good blood return, flushed without redness or edema. secured with tegaderm and saline locked. jacob chester notified of IV start so patient could be hooked up to fluids
[2019-07-12 16:57] VITALS: BP 137/66
[2019-07-12 20:00] VITALS: BP 156/70
[2019-07-13] VITALS: BP 172/88
[2019-07-13 04:00] VITALS: BP 161/81
[2019-07-13 06:04] LABS: BASOPHILS 0.1 % (0-2); EOSINOPHILS 0 % (0-7); HEMATOCRIT 33.4 % (36.0-48.0); HEMOGLOBIN 10.1 g/dL (12-16); IMMATURE GRANULOCYTES 0.3 % (0-5); LYMPHOCYTES 5.2 % (15-50); MCH 25.9 pg (26.0-34.0); MCHC 30.2 g/dL (31.0-37.0); MCV 85.6 fL (80.0-100.0); MEAN PLATELET VOLUME 10.1 fL (7.4-10.4); MONOCYTES 2.2 % (2-11); NEUTROPHILS 92.2 % (40-80); PLATELET COUNT 203 10x3/uL (130-400); RDW 17.2 % (11.5-14.5)
[2019-07-13 06:09] LABS: WBC 17.6 10x3/uL (4.8-10.8)
[2019-07-13 06:15] LABS: ANION GAP 9.5 mmol/L (8-16); CALCIUM 9.4 mg/dL (8.5-10.1); CARBON DIOXIDE 28.9 mmol/L (21.0-32.0); CREATININE - SERUM 0.9 mg/dL (0.6-1.3); MAGNESIUM - SERUM 2.4 mg/dL (1.8-2.4); POTASSIUM - SERUM 4.4 mmol/L (3.5-5.1)
[2019-07-13 08:28] VITALS: BP 185/98
--- NOTE | 2019-07-13 09:14 | NUR ---
PT ALERT X 4. BREATH SOUNDS CLEAR BILAT, 2L O2 PER NC, COUGH NON-PRODUCTIVE. TELEMETRY IN PLACE. IV TO LEFT WRIST, PATENT, DRESSING CDI. PT REPORTING HEADACHE, BELIEVES IT IS RELATED TO BP, MEDS GIVEN PER ORDERS. BED LOW, CALL LIGHT IN REACH. NO OTHER NEEDS AT THIS TIME.
--- NOTE | 2019-07-13 11:00 | MORECARE ---
CASE MANAGEMENT DISCHARGE SUMMARY PATIENT: HUSSEIN DURBIN UNIT: [id number] ADM DATE: 07/10/19 AGE: 63 : 57 SEX: F ROOM/BED: D.2236 AUTHOR: BRITTNI ODONNELL PHYSICIAN: REFERRING PHYSICIAN: MUKESH MORENO MD DATE OF SERVICE: 07/13/19 Discharge Plan Patient Name: HUSSEIN DURBIN Facility: [facility]:[place] : 1955 Planned Disposition: Home Anticipated Discharge Date: 07/12/19 Discharge Date: Expected LOS: 2 Initial Reviewer: [email or web address] Initial Review Date: 07/10/2019 Generated: 07/13/19 12:00 pm Comments DCP- Discharge Planning Updated by [email or web address]: Mahi Chappell on 07/13/19 9:[address] Telephone call from David clay/Roberto requesting, requesting a CB when the patient has discharge orders. The patient's portable O2 is in the room and a tow motor driver will deliver home O2 upon call with dc. . DCP- Discharge Planning Updated by [id number]: Fiordaliza Mello on 07/12/19 1:[address] OXYGEN SATURATION IS 86% ON ROOM AIR WITH EXERTION, WHICH QUALIFIES HER FOR HOME OXYGEN WITH PORTABILITY. I CALLED DAVID WITH [facility] FAXED. SHE STATES SHE WILL BE HERE THIS AFTERNOON WITH PORTABLE OXYGEN SET UP. FAMILY AT BEDSIDE. CM WILL CONTINUE TO FOLLOW AND ASSIST WITH DISCHARGE PLANNING/NEEDS. DCP- Discharge Planning Updated by [id number]: Kristy Palmer on 07/10/19 3:[address] DC PLAN: Return home - Refused Home Health at [facility]. ANTICIPATED DC NEEDS: Denied known dc needs. CM met with patient to complete initial dc planning assessment. CM educated patient on the CM role and verbal consent given by patient to complete assessment. CM verified patient's address, phone number, and emergency contact phone numbers. Patient lives at home with her brother. At discharge patient plans to return home and feels this is a safe discharge. CM discussed availability of home health, rehab services, and medical equipment. Patient refused home health services. Patient just dc from hospital on 07/08/19 w/ copd exacerbation. Patient refused HH services at [facility]. She reports she did get her dc medication filled, however she only took two doses of the vibromycin stating they made her throat swell. She reports compliance with all other medications. Patient denied known discharge needs at this time. CM will continue to follow and will assist as needed with dc plans/needs. DCPIA - Discharge Planning Initial Assessment Updated by [email or web address]: Kristy Palmer on 07/10/19 4:25 pm * Is the patient Alert and Oriented? Yes * How many steps to enter\exit or inside your home? Few * PCP Dr. Vargas * Pharmacy [facility] on [facility] * Preadmission Environment Home with Family * ADLs Independent * Equipment Nebulizer * Other Equipment Did not qualify for home O2 on 07/08/19. * List name and contact numbers for known caregivers / representatives who currently or will assist patient after discharge: Radha garcia - [phone] * Verbal permission to speak to the caregivers and representatives has been obtained from the patient. Yes * Community resources currently utilized None * Additional services required to return to the preadmission environment? No * Can the patient safely return to the preadmission environment? Yes * Has this patient been hospitalized within the prior 30 days at any hospital? Yes Coverage Notice Reviewer: [id number] Marianne Mello Notice Issued Date-Time: 07/12/2019 13:48 Notice Type: IM Discharge Notice Notice Delivered To: Patient Relationship to Patient: Self Zoo Director Name: Delivery Method: HAND - Hand Delivered Alyssa Days: Prior Verbal Notification: Recipient Understood Notice: Yes Recipient Signature: Yes Med Rec Note Co-signed by Attending: Coverage Notice Comment: IMM explained, signed, given, copy placed in Last DP export: 07/12/19 1:07 Patient Name: HUSSEIN DURBIN Page [id number] at 1100 All edits/amendments must be made on the electronic document DICTATION DATE: 07/13/191058 CASSEROLE PREPARER: ANN 07/13/19 105 RPT#: [id number] DC DATE: STATUS: ADM IN [facility] [address] [place] [address] END OF REPORT
--- NOTE | 2019-07-13 11:07 | MORECARE ---
CASE MANAGEMENT DISCHARGE SUMMARY PATIENT: HUSSEIN DURBIN UNIT: [id number] ADM DATE: 07/10/19 AGE: 63 : 57 SEX: F ROOM/BED: D.2236 AUTHOR: BLAS,DOC PHYSICIAN: REFERRING PHYSICIAN: MUKESH MORENO MD DATE OF SERVICE: 07/13/19 Discharge Plan Patient Name: HUSSEIN DURBIN Facility: [facility]:[place] : 1955 Planned Disposition: Home Anticipated Discharge Date: 07/12/19 Discharge Date: Expected LOS: 2 Initial Reviewer: [email or web address] Initial Review Date: 07/10/2019 Generated: 07/13/19 12:07 pm Comments DCP- Discharge Planning Updated by [email or web address]: Mahi Chappell on 07/13/19 10:[address] Telephone call from David clay/Roberto requesting, a CB when the patient has discharge orders. The patient's portable O2 is in the room and a corrugated fastener driver will deliver home O2 upon call with dc. . DCP- Discharge Planning Updated by [email or web address]: Fiordaliza Mello on 07/12/19 1:[address] OXYGEN SATURATION IS 86% ON ROOM AIR WITH EXERTION, WHICH QUALIFIES HER FOR HOME OXYGEN WITH PORTABILITY. I CALLED DAVID WITH [facility] FAXED. SHE STATES SHE WILL BE HERE THIS AFTERNOON WITH PORTABLE OXYGEN SET UP. FAMILY AT BEDSIDE. CM WILL CONTINUE TO FOLLOW AND ASSIST WITH DISCHARGE PLANNING/NEEDS. DCP- Discharge Planning Updated by [id number]: Kristy Palmer on 07/10/19 3:[address] DC PLAN: Return home - Refused Home Health at [facility]. ANTICIPATED DC NEEDS: Denied known dc needs. CM met with patient to complete initial dc planning assessment. CM educated patient on the CM role and verbal consent given by patient to complete assessment. CM verified patient's address, phone number, and emergency contact phone numbers. Patient lives at home with her brother. At discharge patient plans to return home and feels this is a safe discharge. CM discussed availability of home health, rehab services, and medical equipment. Patient refused home health services. Patient just dc from hospital on 07/08/19 w/ copd exacerbation. Patient refused HH services at [facility]. She reports she did get her dc medication filled, however she only took two doses of the vibromycin stating they made her throat swell. She reports compliance with all other medications. Patient denied known discharge needs at this time. CM will continue to follow and will assist as needed with dc plans/needs. DCPIA - Discharge Planning Initial Assessment Updated by [id number]: Kristy Palmer on 07/10/19 4:25 pm * Is the patient Alert and Oriented? Yes * How many steps to enter\exit or inside your home? Few * PCP Dr. Vargas * Pharmacy [facility] on [facility] * Preadmission Environment Home with Family * ADLs Independent * Equipment Nebulizer * Other Equipment Did not qualify for home O2 on 07/08/19. * List name and contact numbers for known caregivers / representatives who currently or will assist patient after discharge: Radha garcia - [phone] * Verbal permission to speak to the caregivers and representatives has been obtained from the patient. Yes * Community resources currently utilized None * Additional services required to return to the preadmission environment? No * Can the patient safely return to the preadmission environment? Yes * Has this patient been hospitalized within the prior 30 days at any hospital? Yes Coverage Notice Reviewer: [id number] - Fiordaliza Mello Notice Issued Date-Time: 07/12/2019 13:48 Notice Type: IM Discharge Notice Notice Delivered To: Patient Relationship to Patient: Self Foundry Melt Supervisor Name: Delivery Method: HAND - Hand Delivered Alyssa Days: Prior Verbal Notification: Recipient Understood Notice: Yes Recipient Signature: Yes Med Rec Note Co-signed by Attending: Coverage Notice Comment: IMM explained, signed, given, copy placed in Last DP export: 07/13/19 10:00 Patient Name: HUSSEIN DURBIN Page [id number] at 1107 All edits/amendments must be made on the electronic document DICTATION DATE: 07/13/191106 SOCIAL SCIENCE MANAGER: ANN 07/13/191106 RPT#: [id number] DC DATE: STATUS: ADM IN [facility] [address] [place] [address] END OF REPORT
[2019-07-13 13:15] VITALS: BP 202/84
[2019-07-13 16:36] VITALS: BP 100/52
[2019-07-13 20:22] VITALS: BP 150/66
[2019-07-14 00:21] VITALS: BP 111/75
[2019-07-14 04:45] VITALS: BP 177/78
[2019-07-14 06:38] LABS: HEMATOCRIT 32.3 % (36.0-48.0); HEMOGLOBIN 9.8 g/dL (12-16); MCH 25.7 pg (26.0-34.0); MCHC 30.3 g/dL (31.0-37.0); MCV 84.6 fL (80.0-100.0); MEAN PLATELET VOLUME 10.5 fL (7.4-10.4); PLATELET COUNT 209 10x3/uL (130-400); RBC 3.82 10x6/uL (4.00-5.40); RDW 17.3 % (11.5-14.5)
[2019-07-14 06:39] LABS: ANION GAP 6.3 mmol/L (8-16); CALCIUM 8.6 mg/dL (8.5-10.1); CARBON DIOXIDE 30.7 mmol/L (21.0-32.0); CREATININE - SERUM 0.9 mg/dL (0.6-1.3); MAGNESIUM - SERUM 2.2 mg/dL (1.8-2.4)
[2019-07-14 06:41] LABS: WBC 13.1 10x3/uL (4.8-10.8)
[2019-07-14 07:46] LABS: ANISOCYTOSIS 2+; LYMPHOCYTES 34 % (15-50); MICROCYTOSIS 1+; MONOCYTES 4 % (2-11); NEUTROPHILS 62 % (40-80); PLATELET ESTIMATE NORMAL
[2019-07-14 07:47] LABS: HYPOCHROMASIA 1+
[2019-07-14 08:25] VITALS: BP 162/66
--- NOTE | 2019-07-14 09:04 | NUR ---
PT ALERT X 4. BREATH SOUNDS CLEAR BILAT, 2L O2 PER NC. TELEMETRY IN PLACE. IV TO LEFT WRIST, PATENT, DRESSING CDI. PRODUCTIVE COUGH, GREEN SPUTUM. PT REPORTING NO PAIN OF SOB AT THIS TIME. BED LOW, CALL LIGHT IN REACH. NO OTHER NEEDS AT THIS TIME.
[2019-07-14 12:38] VITALS: BP 163/58
[2019-07-14] MEDS ORDERED: CATAPRES0.1 MG PO (12:45)
[2019-07-14] MEDS ORDERED: DALIRESP500 MCG PO (12:46)
[2019-07-14] MEDS ORDERED: CLEOCIN HCL150 MG PO (12:47)
[2019-07-14] MEDS ORDERED: PREDNISONE10 MG PO (12:48)
--- NOTE | 2019-07-14 14:14 | MORECARE ---
CASE MANAGEMENT DISCHARGE SUMMARY PATIENT: HUSSEIN DURBIN UNIT: [id number] ADM DATE: 07/10/19 AGE: 63 : 57 SEX: F ROOM/BED: D.2236 AUTHOR: BRITTNI ODONNELL PHYSICIAN: REFERRING PHYSICIAN: MUKESH MORENO MD DATE OF SERVICE: 07/14/19 Discharge Plan Patient Name: HUSSEIN DURBIN Facility: [facility]:[place] : 1955 Planned Disposition: Home Anticipated Discharge Date: 07/12/19 Discharge Date: Expected LOS: 2 Initial Reviewer: [email or web address] Initial Review Date: 07/10/2019 Generated: 07/14/19 3:14 pm Comments DCP- Discharge Planning Updated by [id number]: Mahi Chappell on 07/13/19 10:[address] Telephone call from David clay/Roberto requesting, a CB when the patient has discharge orders. The patient's portable O2 is in the room and a retail delivery driver will deliver home O2 upon call with dc. . DCP- Discharge Planning Updated by [id number]: Fiordaliza Mello on 07/12/19 1:[address] OXYGEN SATURATION IS 86% ON ROOM AIR WITH EXERTION, WHICH QUALIFIES HER FOR HOME OXYGEN WITH PORTABILITY. I CALLED DAVID WITH [facility] FAXED. SHE STATES SHE WILL BE HERE THIS AFTERNOON WITH PORTABLE OXYGEN SET UP. FAMILY AT BEDSIDE. CM WILL CONTINUE TO FOLLOW AND ASSIST WITH DISCHARGE PLANNING/NEEDS. DCP- Discharge Planning Updated by [email or web address]: Kristy Palmer on 07/10/19 3:[address] DC PLAN: Return home - Refused Home Health [place] [facility]. ANTICIPATED DC NEEDS: Denied known dc needs. CM met with patient to complete initial dc planning assessment. CM educated patient on the CM role and verbal consent given by patient to complete assessment. CM verified patient's address, phone number, and emergency contact phone numbers. Patient lives at home with her brother. At discharge patient plans to return home and feels this is a safe discharge. CM discussed availability of home health, rehab services, and medical equipment. Patient refused home health services. Patient just dc from hospital on 07/08/19 w/ copd exacerbation. Patient refused HH services [place] [facility]. She reports she did get her dc medication filled, however she only took two doses of the vibromycin stating they made her throat swell. She reports compliance with all other medications. Patient denied known discharge needs at this time. CM will continue to follow and will assist as needed with dc plans/needs. DCPIA - Discharge Planning Initial Assessment Updated by [id number]: Kristy Palmer on 07/10/19 4:25 pm * Is the patient Alert and Oriented? Yes * How many steps to enter\exit or inside your home? Few * PCP Dr. Vargas * Pharmacy [facility] on [facility] * Preadmission Environment Home with Family * ADLs Independent * Equipment Nebulizer * Other Equipment Did not qualify for home O2 on 07/08/19. * List name and contact numbers for known caregivers / representatives who currently or will assist patient after discharge: Radha garcia - [phone] * Verbal permission to speak to the caregivers and representatives has been obtained from the patient. Yes * Community resources currently utilized None * Additional services required to return to the preadmission environment? No * Can the patient safely return to the preadmission environment? Yes * Has this patient been hospitalized within the prior 30 days at any hospital? Yes Coverage Notice Reviewer: [id number] - Fiordaliza Mello Notice Issued Date-Time: 07/12/2019 13:48 Notice Type: IM Discharge Notice Notice Delivered To: Patient Relationship to Patient: Self Cardiology Nurse Practitioner Name: Delivery Method: HAND - Hand Delivered Alyssa Days: Prior Verbal Notification: Recipient Understood Notice: Yes Recipient Signature: Yes Med Rec Note Co-signed by Attending: Coverage Notice Comment: IMM explained, signed, given, copy placed in Last DP export: 07/13/19 10:07 Patient Name: HUSSEIN DURBIN Page [phone] at 1414 All edits/amendments must be made on the electronic document DICTATION DATE: 07/14/191413 ASSOCIATE RESEARCH SCIENTIST: ANN 07/14/191413 RPT#: [id number] DC DATE: STATUS: ADM IN [facility] [address] [place] [address] END OF REPORT
--- NOTE | 2019-07-14 14:21 | MORECARE ---
CASE MANAGEMENT DISCHARGE SUMMARY PATIENT: HUSSEIN DURBIN UNIT: [id number] ADM DATE: 07/10/19 AGE: 63 : 57 SEX: F ROOM/BED: D.2236 AUTHOR: BLAS,DOC PHYSICIAN: REFERRING PHYSICIAN: MUKESH MORENO MD DATE OF SERVICE: 07/14/19 Discharge Plan Patient Name: HUSSEIN DURBIN Facility: [facility]:[place] : 1955 Planned Disposition: Home Anticipated Discharge Date: 07/12/19 Discharge Date: Expected LOS: 2 Initial Reviewer: [email or web address] Initial Review Date: 07/10/2019 Generated: 07/14/19 3:20 pm Comments DCP- Discharge Planning Updated by [id number]: Aminta Byrnes on 07/14/19 1:[address] LATE ENTRY 1231 CM SPOKE W/ THE PATIENT. SHE IS PREPARED TO DISCHARGE TO HOME. SHE DECLINES ANY SERVICES. SHE HAD DECLINED PREVIOUSLY. HAS PORTABLE OXYGEN AT THE BEDSIDE. TC TO DAVID Lugo/ [facility] TO ADVISE OF DISCHARGE TO HOME TODAY. [facility] WILL CONTACT THE PATIENT TO DELIVER HER STATIONARY UNIT. DCP- Discharge Planning Updated by [id number]: Mahi Chappell on 07/13/19 10:[address] Telephone call from David Begum requesting, a CB when the patient has discharge orders. The patient's portable O2 is in the room and a dedicated driver will deliver home O2 upon call with dc. . DCP- Discharge Planning Updated by [email or web address]: Fiordaliza Contrerassheeba on 07/12/19 1:[address] OXYGEN SATURATION IS 86% ON ROOM AIR WITH EXERTION, WHICH QUALIFIES HER FOR HOME OXYGEN WITH PORTABILITY. I CALLED DAVID WITH [facility] AND [facility] FAXED. SHE STATES SHE WILL BE HERE THIS AFTERNOON WITH PORTABLE OXYGEN SET UP. FAMILY AT BEDSIDE. CM WILL CONTINUE TO FOLLOW AND ASSIST WITH DISCHARGE PLANNING/NEEDS. DCP- Discharge Planning Updated by [email or web address]: Kristy Palmer on 07/10/19 3:[address] DC PLAN: Return home - Refused Home Health at [facility]. ANTICIPATED DC NEEDS: Denied known dc needs. CM met with patient to complete initial dc planning assessment. CM educated patient on the CM role and verbal consent given by patient to complete assessment. CM verified patient's address, phone number, and emergency contact phone numbers. Patient lives at home with her brother. At discharge patient plans to return home and feels this is a safe discharge. CM discussed availability of home health, rehab services, and medical equipment. Patient refused home health services. Patient just dc from hospital on 07/08/19 w/ copd exacerbation. Patient refused HH services at [facility]. She reports she did get her dc medication filled, however she only took two doses of the vibromycin stating they made her throat swell. She reports compliance with all other medications. Patient denied known discharge needs at this time. CM will continue to follow and will assist as needed with dc plans/needs. DCPIA - Discharge Planning Initial Assessment Updated by [id number]: Kristy Palmer on 07/10/19 4:25 pm * Is the patient Alert and Oriented? Yes * How many steps to enter\exit or inside your home? Few * PCP Dr. Vargas * Pharmacy [facility] on [facility] * Preadmission Environment Home with Family * ADLs Independent * Equipment Nebulizer * Other Equipment Did not qualify for home O2 on 07/08/19. * List name and contact numbers for known caregivers / representatives who currently or will assist patient after discharge: Radha Young [facility] [phone] * Verbal permission to speak to the caregivers and representatives has been obtained from the patient. Yes * Community resources currently utilized None * Additional services required to return to the preadmission environment? No * Can the patient safely return to the preadmission environment? Yes * Has this patient been hospitalized within the prior 30 days at any hospital? Yes Coverage Notice Reviewer: [email or web address] Marianne Mello Notice Issued Date-Time: 07/12/2019 13:48 Notice Type: IM Discharge Notice Notice Delivered To: Patient Relationship to Patient: Self Carpenter Prototype Name: Delivery Method: HAND - Hand Delivered Alyssa Days: Prior Verbal Notification: Recipient Understood Notice: Yes Recipient Signature: Yes Med Rec Note Co-signed by Attending: Coverage Notice Comment: IMM explained, signed, given, copy placed in MR Last DP export: 07/14/19 1:14 Patient Name: HUSSEIN DURBIN Page [id number] at 1421 All edits/amendments must be made on the electronic document DICTATION DATE: 07/14/191419 PIANO BENCH ASSEMBLER: ANN 07/14/191419 RPT#: [id number] DC DATE: STATUS: ADM IN [facility] [address] [place] [address] END OF REPORT
--- NOTE | 2019-07-14 14:54 | NUR ---
DISCHARGE PAPERWORK SIGNED, ALL QUESTIONS ANSWERED. IV TO LEFT WRIST DC'D, TIP INTACT. ESCORTED OUT BY WHEELCHAIR.
--- NOTE | 2019-07-16 07:59 | MORECARE ---
CASE MANAGEMENT DISCHARGE SUMMARY PATIENT: HUSSEIN DURBIN UNIT: [id number] ADM DATE: 07/10/19 AGE: 63 : 57 SEX: F ROOM/BED: D.2236 AUTHOR: BLAS,DOC PHYSICIAN: REFERRING PHYSICIAN: MUKESH MORENO MD DATE OF SERVICE: 07/16/19 Discharge Plan Patient Name: HUSSEIN DURBIN Facility: [facility]:[place] : 1955 Planned Disposition: Home Anticipated Discharge Date: 07/12/19 Discharge Date: 07/14/2019 Expected LOS: 2 Initial Reviewer: [email or web address] Initial Review Date: 07/10/2019 Generated: 07/16/19 8:59 am Comments DCP- Discharge Planning Updated by [email or web address]: Aminta Marti on 07/14/19 1:[address] LATE ENTRY 1231 CM SPOKE W/ THE PATIENT. SHE IS PREPARED TO DISCHARGE TO HOME. SHE DECLINES ANY SERVICES. SHE HAD DECLINED PREVIOUSLY. HAS PORTABLE OXYGEN AT THE BEDSIDE. TC TO DAVID Lugo/ [facility] TO ADVISE OF DISCHARGE TO HOME TODAY. [facility] WILL CONTACT THE PATIENT TO DELIVER HER STATIONARY UNIT. DCP- Discharge Planning Updated by [email or web address]: Mahi Chappell on 07/13/19 10:[address] Telephone call from David Begum requesting, a CB when the patient has discharge orders. The patient's portable O2 is in the room and a school bus driver/custodian will deliver home O2 upon call with dc. . DCP- Discharge Planning Updated by [id number]: Fiordaliza Riaz on 07/12/19 1:[address] OXYGEN SATURATION IS 86% ON ROOM AIR WITH EXERTION, WHICH QUALIFIES HER FOR HOME OXYGEN WITH PORTABILITY. I CALLED DAVID WITH [facility] AND CLINICAL FAXED. SHE STATES SHE WILL BE HERE THIS AFTERNOON WITH PORTABLE OXYGEN SET UP. FAMILY AT BEDSIDE. CM WILL CONTINUE TO FOLLOW AND ASSIST WITH DISCHARGE PLANNING/NEEDS. DCP- Discharge Planning Updated by [id number]: Kristy Palmer on 07/10/19 3:[address] DC PLAN: Return home - Refused Home Health at co. ANTICIPATED DC NEEDS: Denied known dc needs. CM met with patient to complete initial dc planning assessment. CM educated patient on the CM role and verbal consent given by patient to complete assessment. CM verified patient's address, phone number, and emergency contact phone numbers. Patient lives at home with her brother. At discharge patient plans to return home and feels this is a safe discharge. CM discussed availability of home health, rehab services, and medical equipment. Patient refused home health services. Patient just dc from hospital on 07/08/19 w/ copd exacerbation. Patient refused HH services at co. She reports she did get her dc medication filled, however she only took two doses of the vibromycin stating they made her throat swell. She reports compliance with all other medications. Patient denied known discharge needs at this time. CM will continue to follow and will assist as needed with dc plans/needs. DCPIA - Discharge Planning Initial Assessment Updated by [id number]: Kristy Palmer on 07/10/19 4:25 pm * Is the patient Alert and Oriented? Yes * How many steps to enter\exit or inside your home? Few * PCP Dr. Vargas * Pharmacy [facility] * Preadmission Environment Home with Family * ADLs Independent * Equipment Nebulizer * Other Equipment Did not qualify for home O2 on 07/08/19. * List name and contact numbers for known caregivers / representatives who currently or will assist patient after discharge: Radha Hector radha [phone] * Verbal permission to speak to the caregivers and representatives has been obtained from the patient. Yes * Community resources currently utilized None * Additional services required to return to the preadmission environment? No * Can the patient safely return to the preadmission environment? Yes * Has this patient been hospitalized within the prior 30 days at any hospital? Yes Coverage Notice Reviewer: [id number] Marianne Mello Notice Issued Date-Time: 07/12/2019 13:48 Notice Type: IM Discharge Notice Notice Delivered To: Patient Relationship to Patient: Self Gluer Machine Setup Operator Name: Delivery Method: HAND - Hand Delivered Alyssa Days: Prior Verbal Notification: Recipient Understood Notice: Yes Recipient Signature: Yes Med Rec Note Co-signed by Attending: Coverage Notice Comment: IMM explained, signed, given, copy placed in MR Last DP export: 07/14/19 1:21 Patient Name: HUSSEIN DURBIN Page [id number] at 0759 All edits/amendments must be made on the electronic document DICTATION DATE: 07/16/19758 MACHINE FEEDER RAW STOCK: ANN 07/16/19758 RPT#: [id number] DC DATE:07/14/19 STATUS: DIS IN [facility] [address] [place] [address] END OF REPORT
[2019-08-27] MEDS ORDERED: OXYCODONE HCL5 M1 PO (16:57)
== END 2019-07-14 14:55 | disposition home or self-care (01) | DRG 177 ==
LOC: D.ER 11:14 → D.MS 14:25
PROVIDERS: Family Medicine; ADMIT Emergency Medicine; ATTEND Emergency Medicine
PROC: 05HC33Z Insertion of Infusion Device into Left Basilic Vein, Percutaneous Approach (ICD-10-PCS; principal; 2019-07-10)
PROC: B54NZZA Ultrasonography of Left Upper Extremity Veins, Guidance (ICD-10-PCS; 2019-07-10)
DX: J15.6 Pneumonia due to other Gram-negative bacteria (principal); J96.21 Acute and chronic respiratory failure with hypoxia; J44.1 Chronic obstructive pulmonary disease with (acute) exacerbation; J44.0 Chronic obstructive pulmonary disease with (acute) lower respiratory infection; J15.212 Pneumonia due to Methicillin resistant Staphylococcus aureus; D64.9 Anemia, unspecified; E11.51 Type 2 diabetes mellitus with diabetic peripheral angiopathy without gangrene; E11.65 Type 2 diabetes mellitus with hyperglycemia; I10 Essential (primary) hypertension; E78.5 Hyperlipidemia, unspecified; K76.89 Other specified diseases of liver; J30.9 Allergic rhinitis, unspecified; K21.9 Gastro-esophageal reflux disease without esophagitis; K44.9 Diaphragmatic hernia without obstruction or gangrene; I25.10 Atherosclerotic heart disease of native coronary artery without angina pectoris; Z95.0 Presence of cardiac pacemaker; Z86.718 Personal history of other venous thrombosis and embolism; Z86.73 Personal history of transient ischemic attack (TIA), and cerebral infarction without residual deficits

== ENCOUNTER 2019-07-19 12:18 | Emergency (ER) | payer MEDICARE, MEDICAID ==
[~2019-07-19] VITALS: Ht 162.6 cm; Wt 88.2 kg
[~2019-07-19 12:18] MED LIST changes: +CLEOCIN HCL150 MG PO; +DALIRESP500 MCG PO
[2019-07-19 12:20] VITALS: Ht 162.6 cm; Wt 88.2 kg
[2019-07-19 12:57] LABS: BASOPHILS 0.2 % (0-2); EOSINOPHILS 1.8 % (0-7); HEMATOCRIT 35.3 % (36.0-48.0); HEMOGLOBIN 10.7 g/dL (12-16); IMMATURE GRANULOCYTES 0.2 % (0-5); LYMPHOCYTES 29.1 % (15-50); MCH 26.2 pg (26.0-34.0); MCHC 30.3 g/dL (31.0-37.0); MCV 86.5 fL (80.0-100.0); MEAN PLATELET VOLUME 9.8 fL (7.4-10.4); MONOCYTES 4.9 % (2-11); NEUTROPHILS 63.8 % (40-80); RBC 4.08 10x6/uL (4.00-5.40); RDW 17.1 % (11.5-14.5); WBC 8.6 10x3/uL (4.8-10.8)
[2019-07-19 13:07] LABS: PLATELET COUNT 295 10x3/uL (130-400)
[2019-07-19 13:14] LABS: ANION GAP 13.5 mmol/L (8-16); CALCIUM 8.9 mg/dL (8.5-10.1); CARBON DIOXIDE 26.4 mmol/L (21.0-32.0); POTASSIUM - SERUM 3.9 mmol/L (3.5-5.1)
[2019-07-19 13:26] LABS: ALBUMIN 3.1 g/dL (3.4-5.0); BILIRUBIN - TOTAL 0.23 mg/dL (0.2-1.3); PROTEIN - SERUM 6.5 g/dL (6.4-8.2)
[2019-07-19 13:51] VITALS: BP 116/81
[2019-08-27] MEDS ORDERED: OXYCODONE HCL5 M1 PO (16:57)
== END 2019-07-19 14:09 | disposition home or self-care (01) ==
LOC: D.ER 12:18
PROVIDERS: Family Medicine
DX: R25.2 Cramp and spasm (principal); E11.9 Type 2 diabetes mellitus without complications; I10 Essential (primary) hypertension

== ENCOUNTER → 2019-08-13 07:22 | Outpatient (CLI) | payer MEDICARE, MEDICAID ==
[2019-07-19 12:20] VITALS: BMI 33.3
[~2019-08-13 07:22] MED LIST changes: +OXYCODONE HCL5 M1 PO
== END | disposition home or self-care (01) ==
LOC: D.OPS 07:22 → D.RAD 09:30
PROVIDERS: ATTEND Surgery
DX: K21.9 Gastro-esophageal reflux disease without esophagitis (principal)

== ENCOUNTER 2019-08-26 06:36 | Inpatient (IN) | payer MEDICARE, MEDICAID ==
[~2019-08-26] VITALS: Ht 163.8 cm; Wt 88.0 kg
[~2019-08-26 06:36] MED LIST changes: -OXYCODONE HCL5 M1 PO
[2019-08-26 07:25] LABS: ANION GAP 10.7 mmol/L (8-16); CALCIUM 9.8 mg/dL (8.5-10.1); CARBON DIOXIDE 28.1 mmol/L (21.0-32.0); CREATININE - SERUM 0.9 mg/dL (0.6-1.3); POTASSIUM - SERUM 3.8 mmol/L (3.5-5.1)
[2019-08-26 07:28] LABS: HEMATOCRIT 37.7 % (36.0-48.0); HEMOGLOBIN 11.7 g/dL (12-16); MCH 26.8 pg (26.0-34.0); MCV 86.3 fL (80.0-100.0); MEAN PLATELET VOLUME 10.2 fL (7.4-10.4); RBC 4.37 10x6/uL (4.00-5.40); RDW 16.4 % (11.5-14.5); WBC 7.2 10x3/uL (4.8-10.8)
[2019-08-26 07:50] VITALS: BP 130/86; BMI 32.3
[2019-08-26 11:49] VITALS: BP 167/84
--- NOTE | 2019-08-26 13:13 | NUR ---
I have reviewed this patient and I concur with the Shift Assessment completed by the Licensed Practical Nurse today this shift.
--- NOTE | 2019-08-26 14:21 | NUR ---
PT UP IN BED VERY SORE, REMINDED PT SHE HAS A PAIN BUTTON, PT INQUIRED ON ICE CREAM ADVISED SHE MAY HAE A POPSICLE PT STATED " OH SHIT I DON'T WANT A POPSICLE" ADVISED HER WE ARE ADVANCING TOLERATED BUT RIGHT NOW SHE IS CLEAR LIQUIDS CONTINUE WITH PLAN OF CARE
[2019-08-26 15:13] VITALS: BP 167/84; BMI 32.8
[2019-08-26 16:46] VITALS: BP 119/74
--- NOTE | 2019-08-26 18:14 | NUR ---
PT STATED A BD IS STILL VERY PAINFUL, ADMINISTERED PRN TORADOL, PT STATED THIS DOES NOT HELP AND REQUESTED ICE PACK WELL. CONTINUE WITH PLAN OF CARE
[2019-08-26 19:30] VITALS: BP 136/74
--- NOTE | 2019-08-26 19:35 | NUR ---
PT UPSET UPON ENTERING ROOM STATING SHE WAS HUNGRY AND DID NOT WANT CLEAR LIQUIDS. INFORMED PT ORDER HAS NOT CHANGED AND OFFERED HER ALL CLEAR LIQUID OPTIONS, PT FINALLY AGREED TO POPSICLE. STATES SHE HOPES TO HAVE DIET CHANGED IN AM. STATES SHE IS STILL HAVING A LOT OF PAIN BUT MORPHINE NEURO PSYCH SALES SPECIALIST IS HELPING SOME. DOES NOT WANT TORADOL AGAIN STATING IT DOES NOT HELP. GAVE PT NEW ICE PACK TO APPLY TO STOMACH. LAP SITES CDI. SCDS IN PLACE BILAT. DENIES OTHER NEEDS. WILL CTM
--- NOTE | 2019-08-26 21:00 | NUR ---
GAVE HS MEDS ORDERED. PT DOES NOT WANT TO AMBULATE ANY MORE AT THIS TIME. STATES SHE HAS BEEN AMBULATING MULTIPLE TIMES TO BATHROOM AND BACK ALREADY. STATES SHE IS PASSING GAS AND HAS HAD BM AND WOULD LIKE TO KNOW IF WE CAN ADVANCE HER DIET NOW. INFORMED PT SHE IS STILL CLEAR LIQUID UNTIL DOCTOR COMES AND CHANGES ORDER. PT REQUESTED AND GIVEN POPSICLE. DENIES OTHER NEEDS AT THIS TIME. CL IN REACH, WILL CTM
[2019-08-27 00:30] VITALS: BP 130/83
--- NOTE | 2019-08-27 01:45 | NUR ---
PT STATES PAIN 9/10 IN ABD, STATES SHE WAS SLEEPING AND DID NOT PRESS BUTTON MUCH. GAVE WIRELESS SALES MANAGER BOLUS. PROVIDED NEW ICE PACK. DENIES OTHER NEEDS. WILL CTM
[2019-08-27 05:00] VITALS: BP 132/80
[2019-08-27 06:47] LABS: BASOPHILS 0.2 % (0-2); EOSINOPHILS 1.9 % (0-7); HEMATOCRIT 37.6 % (36.0-48.0); HEMOGLOBIN 11.1 g/dL (12-16); IMMATURE GRANULOCYTES 0.4 % (0-5); LYMPHOCYTES 16.3 % (15-50); MCH 26.5 pg (26.0-34.0); MCHC 29.5 g/dL (31.0-37.0); MEAN PLATELET VOLUME 10.2 fL (7.4-10.4); MONOCYTES 10.5 % (2-11); NEUTROPHILS 70.7 % (40-80); RBC 4.19 10x6/uL (4.00-5.40); RDW 17.1 % (11.5-14.5); WBC 8.5 10x3/uL (4.8-10.8)
[2019-08-27 06:51] LABS: MCV 89.7 fL (80.0-100.0); PLATELET COUNT 231 10x3/uL (130-400)
[2019-08-27 07:22] LABS: ALBUMIN 2.9 g/dL (3.4-5.0); ANION GAP 16.5 mmol/L (8-16); BILIRUBIN - TOTAL 0.57 mg/dL (0.2-1.3); CALCIUM 8.5 mg/dL (8.5-10.1); CARBON DIOXIDE 22.8 mmol/L (21.0-32.0); CREATININE - SERUM 0.9 mg/dL (0.6-1.3); POTASSIUM - SERUM 4.3 mmol/L (3.5-5.1); PROTEIN - SERUM 6.4 g/dL (6.4-8.2)
--- NOTE | 2019-08-27 07:55 | NUR ---
PATIENT RECIEVED BOLUS ON RIBBON CLEANER. GOING TO GET SWALLOW EVAL. IV INTACT. HAVING PAIN AT THIS TIME. ASSISTED INTO WC.
[2019-08-27 08:05] VITALS: BP 116/90
[2019-08-27 08:26] VITALS: Ht 163.8 cm; Wt 88.0 kg
[2019-08-27 12:27] VITALS: BP 114/66
[2019-08-27 16:03] VITALS: BP 178/73
[2019-08-27] MEDS ORDERED: OXYCODONE HCL5 M1 PO (16:57)
--- NOTE | 2019-08-27 17:45 | NUR ---
PATIENT RECIEVED DC INSTRUCTIONS. VERBALIZED UNDERSTANDING. NO QUESTIONS AT THIS TIME. [facility] [address]. IV REMOVED WITH CATH TIP INTACT. AWAITING TRANSPORTATION FOR DC. CALL LIGHT WITHIN REACH.
== END 2019-08-27 18:47 | disposition home or self-care (01) | DRG 328 ==
LOC: D.OPS 06:36 → D.MS 06:37 → D.OPS 08:55 → D.PAN 09:00 → D.MS 09:00 → D.OPS 11:25 → D.MS 11:25
PROVIDERS: Anesthesiology; ADMIT Surgery; ATTEND Surgery
PROC: 0DV44ZZ Restriction of Esophagogastric Junction, Percutaneous Endoscopic Approach (ICD-10-PCS; 2019-08-26)
PROC: 0BQT4ZZ Repair Diaphragm, Percutaneous Endoscopic Approach (ICD-10-PCS; principal; 2019-08-26 08:55)
DX: K44.9 Diaphragmatic hernia without obstruction or gangrene (principal); K21.9 Gastro-esophageal reflux disease without esophagitis; J44.9 Chronic obstructive pulmonary disease, unspecified; I10 Essential (primary) hypertension; E11.65 Type 2 diabetes mellitus with hyperglycemia; F17.200 Nicotine dependence, unspecified, uncomplicated; E66.9 Obesity, unspecified; Z68.32 Body mass index [BMI] 32.0-32.9, adult

== ENCOUNTER 2019-08-29 08:51 | Inpatient (IN) | payer MEDICARE, MEDICAID ==
[~2019-08-29] VITALS: Ht 163.8 cm; Wt 85.3 kg
[2019-08-29] VITALS (11 sets, daily range): BP systolic 100–134; BP diastolic 71–92; BMI 31.8
[~2019-08-29 08:51] MED LIST changes: +OXYCODONE HCL5 M1 PO
[2019-08-29 09:32] LABS: HEMATOCRIT 36.2 % (36.0-48.0); HEMOGLOBIN 11.5 g/dL (12-16); LYMPHOCYTES 15.4 % (15-50); MCH 27.1 pg (26.0-34.0); MCHC 31.8 g/dL (31.0-37.0); MCV 85.2 fL (80.0-100.0); MEAN PLATELET VOLUME 10.5 fL (7.4-10.4); NEUTROPHILS 75.3 % (40-80); PLATELET COUNT 282 10x3/uL (130-400); RBC 4.25 10x6/uL (4.00-5.40); RDW 16.7 % (11.5-14.5); WBC 11.6 10x3/uL (4.8-10.8)
[2019-08-29 09:39] LABS: ANION GAP 12.9 mmol/L (8-16); CALCIUM 9.5 mg/dL (8.5-10.1); CARBON DIOXIDE 25.7 mmol/L (21.0-32.0); POTASSIUM - SERUM 3.6 mmol/L (3.5-5.1)
--- NOTE | 2019-08-29 09:49 | NUR ---
O2 SATS DIFFICULTY TO OBTAIN IN TRIAGE 82-84%. TO ER#11 VIA W/C. ROWENA ARRIAGA AND DR ADKINS NOTIFIED. ABG'S ORDERED. PT ASSITED TO BED AND CM, NIBP AND PULSE OX APPLIED
[2019-08-29 10:01] LABS: ALBUMIN 2.6 g/dL (3.4-5.0); BILIRUBIN - TOTAL 0.91 mg/dL (0.2-1.3); PROTEIN - SERUM 7.4 g/dL (6.4-8.2)
[2019-08-29 10:03] LABS: TROPONIN-I 0.33 ng/mL (0.000-0.060)
[2019-08-29 10:49] LABS: APPEARANCE CLEAR (CLEAR); BACTERIA FEW /hpf (NEGATIVE); BILIRUBIN NEGATIVE (NEGATIVE); COLOR DK YELLOW (YELLOW); EPITHELIAL CELLS 0-5 /hpf (0-5); GLUCOSE 250 mg/dL (NEGATIVE); KETONE SMALL mg/dL (NEGATIVE); MUCUS <1+ /lpf (NONE SEEN); NITRITE NEGATIVE (NEGATIVE); PROTEIN 1+ mg/dL (NEGATIVE); RED CELLS - URINE 0-5 /hpf (0-5); SPECIFIC GRAVITY 1.025 (1.005-1.020); UROBILINOGEN NORMAL (NORMAL)
[2019-08-29 10:50] LABS: AMORPHOUS SEDIMENT <1+ /lpf (NONE SEEN); WHITE CELLS - URINE RARE /hpf (NEGATIVE)
[2019-08-29 11:40] LABS: D-DIMER-QUANTITATIVE 3.52 ug/mLFEU (0.20-0.54)
[2019-08-29 11:46] LABS: APTT 24.9 SECONDS (22.8-39.4)
[2019-08-29 11:50] LABS: INR 7.34 (0.85-1.17); PROTIME 61.8 SECONDS (11.6-15.0)
--- NOTE | 2019-08-29 16:39 | NUR ---
PT ARRIVED TO UNIT FROM ER VIA STRETCHER, VSS AND WNL. HI CHELSEY NC AT 8L NOTED. PT ANSWERS ALL QUESTIONS. DAUGHTER AT BEDSIDE. PT HAS STERI STRIPS TO ABD FROM LAP PROCEDURE THIS PAST MONDAY. DENIES ANY NEEDS AT THIS TIME, WILL CONT TO FOLLOW POC
--- NOTE | 2019-08-29 17:40 | NUR ---
PT RESTING IN BED, VSS AND WNL. TRAY SET UP PROVIDED. DENIES ANY NEEDS AT THIS TIME, WILL CONT TO FOLLOW POC
--- NOTE | 2019-08-29 19:20 | NUR ---
REPORT RECIEVED. ASSESSMENT COMPLETE PER FLOW SHEET. VSS. NO NEW CHANGES PT RESTING COMFORTABLY DENIES NEEDS WILL CONTINUE TO MONITOR
--- NOTE | 2019-08-29 20:20 | NUR ---
FAMILY AT BEDSIDE GIVEN UPDATE. ASSISTED TO BEDSIDE COMMODE 200 DARK VOID NOTED.
--- NOTE | 2019-08-29 23:10 | NUR ---
REASSESSMENT COMPLETE PER FLOW SHEET. VSS. NO NEW CHANGES PT RESTING COMFORTABLY WILL CONTINUE TO MONITOR
[2019-08-30] VITALS (20 sets, daily range): BP systolic 96–123; BP diastolic 65–84; Ht 163.8 cm; Wt 85.3 kg
[2019-08-30 01:11] LABS: CKMB 0.7 U/L (0.0-3.6); CREATINE KINASE 230 UL (21-215)
[2019-08-30 01:12] LABS: TROPONIN-I 0.133 ng/mL (0.000-0.060)
--- NOTE | 2019-08-30 01:15 | NUR ---
PT SLEEPING COMFORTABLY VSS NO NEW CHANGES WILL CONTNIUE TO MONITOR
--- NOTE | 2019-08-30 03:20 | NUR ---
REASSESSMENT COMPLETE PER FLOW SHEET VSS NO NEW CHANGES WILL CONTINUE TO MONITOR
[2019-08-30 07:35] LABS: APTT 37.4 SECONDS (22.8-39.4); INR 1.25 (0.85-1.17); PROTIME 15.1 SECONDS (11.6-15.0)
[2019-08-30 07:50] LABS: ALBUMIN 2.2 g/dL (3.4-5.0); ALKALINE PHOSPHATASE 111 U/L (46-116); BILIRUBIN - TOTAL 0.79 mg/dL (0.2-1.3); CALC OSMOLALITY 280 mosm/kg (275-300); CALCIUM 8.7 mg/dL (8.5-10.1); CARBON DIOXIDE 28.2 mmol/L (21.0-32.0); CHLORIDE - SERUM 104 mmol/L (98-107); CKMB 0.4 U/L (0.0-3.6); CREATINE KINASE 187 UL (21-215); CREATININE - SERUM 0.9 mg/dL (0.6-1.3); GLUCOSE 163 mg/dL (74-106); MAGNESIUM - SERUM 2.1 mg/dL (1.8-2.4); PHOSPHOROUS 3.3 mg/dL (2.5-4.9); POTASSIUM - SERUM 3.6 mmol/L (3.5-5.1); PROTEIN - SERUM 6.5 g/dL (6.4-8.2); SODIUM 139 mmol/L (136-145); UREA NITROGEN 10 mg/dL (7-18); eGFR NON AFRICAN AMERICAN 67 mL/min (90-120)
[2019-08-30 07:51] LABS: ALT (SGPT) 23 U/L (10-68); TROPONIN-I 0.098 ng/mL (0.000-0.060)
[2019-08-30 07:53] LABS: BASOPHILS 0.1 % (0-2); HEMATOCRIT 29.8 % (36.0-48.0); IMMATURE GRANULOCYTES 0.4 % (0-5); MCH 26.4 pg (26.0-34.0); MCHC 30.5 g/dL (31.0-37.0); MCV 86.4 fL (80.0-100.0); MEAN PLATELET VOLUME 10.4 fL (7.4-10.4); MONOCYTES 11.7 % (2-11); NEUTROPHILS 71.8 % (40-80); PLATELET COUNT 297 10x3/uL (130-400); RBC 3.45 10x6/uL (4.00-5.40); RDW 17.5 % (11.5-14.5); WBC 11.8 10x3/uL (4.8-10.8)
[2019-08-30 07:54] LABS: HEMOGLOBIN 9.1 g/dL (12-16)
--- NOTE | 2019-08-30 08:00 | NUR ---
HERE AND STATES PT IS STABLE TO TRANSFER TO FLOOR. WILL DISCUSS WITH
--- NOTE | 2019-08-30 08:45 | NUR ---
ASSISTED PT TO BEDSIDE COMMODE AND BACK TO BED, PT HAD A BM. DENIES ANY NEEDS AT THIS TIME, WILL CONT TO FOLLOW POC
--- NOTE | 2019-08-30 09:40 | NUR ---
HERE AND STATES PT IS STABLE FOR TRANSFER TO FLOOR. WILL DISCUSS WITH
--- NOTE | 2019-08-30 11:15 | NUR ---
PT RESTING IN BED, VSS AND WNL. CALL LIGHT WITHIN REACH, DENIES ANY NEEDS AT THIS TIME, WILL CONT TO FOLLOW POC
[2019-08-30 12:46] LABS: CKMB 0.6 U/L (0.0-3.6); CREATINE KINASE 181 UL (21-215)
[2019-08-30 12:47] LABS: TROPONIN-I 0.073 ng/mL (0.000-0.060)
--- NOTE | 2019-08-30 13:00 | NUR ---
PT RESTING IN BED, VSS AND WNL, FAMILY AT BEDSIDE, CALL LIGHT WITHIN REACH. DENIES ANY NEEDS AT THIS TIME, WILL CONT TO FOLLOW POC
--- NOTE | 2019-08-30 15:00 | NUR ---
PT RESTING IN BED, VSS AND WNL. DENIES ANY NEEDS AT THIS TIME, CALL LIGHT WITHIN REACH, WILL CONT TO FOLLOW POC
--- NOTE | 2019-08-30 17:08 | NUR ---
patient complained of chest pain. ekg done at this time. bp is not elevated. hr is 90 sinus rhythm. tried to reposition patient and patient denied. patient not happy at this time. tried to explain the way she was sitting can put pressure on the surgical sites. refused to listen to my explanation
--- NOTE | 2019-08-30 17:59 | NUR ---
patient got angry because she is adiabetic and wanted real sugar and i gilbert her splenda. educated on why she can not have real sugar but continued to refuse my explanation
--- NOTE | 2019-08-30 18:00 | NUR ---
ekg put in chart after lita stated she had chest pain.
--- NOTE | 2019-08-30 19:05 | MORECARE ---
CASE MANAGEMENT DISCHARGE SUMMARY PATIENT: HUSSEIN DURBIN TOREY UNIT: [id number] ADM DATE: 08/29/19 AGE: 63 : 57 SEX: F ROOM/BED: D.2310 AUTHOR: BRITTNI ODONNELL PHYSICIAN: REFERRING PHYSICIAN: AMBROCIO POOLE MD DATE OF SERVICE: 08/30/19 Discharge Plan Patient Name: HUSSEIN DURBIN [facility] [facility] 1955 Planned Disposition: Home Anticipated Discharge Date: Discharge Date: Expected LOS: Initial Reviewer: [email or web address] Initial Review Date: 08/30/2019 Generated: 08/30/19 8:04 pm DCPIA - Discharge Planning Initial Assessment Updated by [id number]: Nikia Ambriz on 08/30/19 7:03 pm * Is the patient Alert and Oriented? Yes * How many steps to enter\exit or inside your home? * PCP CURTIS * Pharmacy [facility] * Preadmission Environment Home with Family * ADLs Independent * Other Equipment HOME / PORTABLE 02, CANE * List name and contact numbers for known caregivers / representatives who currently or will assist patient after discharge: TAYLOR RIPLEY - DAUGHTER - [phone] MARIA LUISA [facility] IDWDFAHY-[phone] DAYANA [facility] [phone] MAMATTY [facility] [phone] * Verbal permission to speak to the caregivers and representatives has been obtained from the patient. Yes * Community resources currently utilized None * Additional services required to return to the preadmission environment? No * Can the patient safely return to the preadmission environment? Yes * Has this patient been hospitalized within the prior 30 days at any hospital? No Patient Name: HUSSEIN DURBIN Page [id number] at 1905 All edits/amendments must be made on the electronic document DICTATION DATE: 08/30/191903 AIRCRAFT LANDING GEAR INSPECTOR: ANN 08/30/191903 RPT#: [id number] DC DATE: STATUS: ADM IN [place] [address] [place] [address] END OF REPORT
--- NOTE | 2019-08-30 19:11 | MORECARE ---
CASE MANAGEMENT DISCHARGE SUMMARY PATIENT: HUSSEIN DURBIN UNIT: [id number] ADM DATE: 08/29/19 AGE: 63 : 57 SEX: F ROOM/BED: D.2310 AUTHOR: BLAS,DOC PHYSICIAN: REFERRING PHYSICIAN: AMBROCIO POOLE MD DATE OF SERVICE: 08/30/19 Discharge Plan Patient Name: HUSSEIN DURBIN Facility: [facility]:[place] : 1955 Planned Disposition: Home Anticipated Discharge Date: Discharge Date: Expected LOS: Initial Reviewer: [email or web address] Initial Review Date: 08/30/2019 Generated: 08/30/19 8:11 pm Comments DCP- Discharge Planning Updated by [email or web address]: Nikia Ambriz on 08/30/19 6:[address] Patient Name: HUSSEIN DURBIN Admission Status: ER Accout number: [id number] Admission Date: 08-29-2019 : 1955 Admission Diagnosis: Attending: AMBROCIO POOLE Current LOS: 1 Anticipated DC Date: Planned Disposition: Home Primary Insurance: [employer]IC[employer] ADV Discharge Planning Comments: CM met with patient to complete initial dc planning assessment. CM educated patient on the CM role and verbal consent given by patient to complete assessment. Patient lives at home with her brother where she is independent with her care. At discharge patient plans to return home and feels this is a safe discharge. CM discussed availability of home health, rehab services, and medical equipment. Her daughter will be her line haul driver home. Patient has a nebulizer and home o2 ( unknown provider ) Patient denied known discharge needs at this time. CM will continue to follow and will assist as needed with dc plans/needs. Assistant Professor Of Biochemistry: Nikia Ambriz DCPIA - Discharge Planning Initial Assessment Updated by [id number]: Nikia Ambriz on 08/30/19 7:03 pm * Is the patient Alert and Oriented? Yes * How many steps to enter\exit or inside your home? * PCP CURTIS * Pharmacy [facility] * Preadmission Environment Home with Family * ADLs Independent * Other Equipment HOME / PORTABLE 02, CANE * List name and contact numbers for known caregivers / representatives who currently or will assist patient after discharge: TAYLOR Lopes DAUGHTER - [phone] MARIA LUISA Lopes DQJEMAIF-[phone] DAYANA RUBIO - SON - [phone] PARISA LOWE [facility] [phone] * Verbal permission to speak to the caregivers and representatives has been obtained from the patient. Yes * Community resources currently utilized None * Additional services required to return to the preadmission environment? No * Can the patient safely return to the preadmission environment? Yes * Has this patient been hospitalized within the prior 30 days at any hospital? No Last DP export: 08/30/19 6:05 p Patient Name: HUSSEIN DURBIN Page [phone] at 191 All edits/amendments must be made on the electronic document DICTATION DATE: 08/30/191910 PATIENT SERVICE COORDINATOR: ANN 08/30/191910 RPT#: [id number] DC DATE: STATUS: ADM IN [facility] [address] [place] [address] END OF REPORT
--- NOTE | 2019-08-30 19:35 | NUR ---
TRANSFERRED TO ROOM 2203 VIA BED ACCOMPANIED BY RN X 2, RECEIVING NURSE IN ROOM, BED LOW, WHEELS LOCKED, CALL LIGHT IN REACH. PT DENIES ANY NEEDS AT THIS TIME.
--- NOTE | 2019-08-30 20:00 | NUR ---
RECEIVED PT FROM ICU. A/O WITH NO SIGNS OF ACUTE DISTRESS. SOB NOTED UPON EXERTION. IV TO THE RIGHT UPPER ARM WITH NO REDNESS OR SWELLING. NC @2L. COMPLAINING OF 10/10 PAIN IN BACK. ADMIN PRN PAIN MED. DENIES NO OTHER NEEDS AT THIS TIME. CONTINUE PLAN OF CARE.
[2019-08-31] VITALS: BP 90/50
[2019-08-31 04:00] VITALS: BP 112/71
[2019-08-31 05:20] LABS: BASOPHILS 0.2 % (0-2); EOSINOPHILS 2.9 % (0-7); HEMATOCRIT 29.7 % (36.0-48.0); IMMATURE GRANULOCYTES 0.2 % (0-5); LYMPHOCYTES 12.8 % (15-50); MCH 26.3 pg (26.0-34.0); MCHC 30.3 g/dL (31.0-37.0); MCV 86.8 fL (80.0-100.0); MEAN PLATELET VOLUME 10.5 fL (7.4-10.4); MONOCYTES 13.1 % (2-11); NEUTROPHILS 70.8 % (40-80); PLATELET COUNT 283 10x3/uL (130-400); RBC 3.42 10x6/uL (4.00-5.40); RDW 17.6 % (11.5-14.5); WBC 9.9 10x3/uL (4.8-10.8)
[2019-08-31 05:32] LABS: ANION GAP 10.9 mmol/L (8-16); CALCIUM 8.6 mg/dL (8.5-10.1); CARBON DIOXIDE 30.9 mmol/L (21.0-32.0); CREATININE - SERUM 1.1 mg/dL (0.6-1.3); MAGNESIUM - SERUM 2.4 mg/dL (1.8-2.4); POTASSIUM - SERUM 3.8 mmol/L (3.5-5.1)
[2019-08-31 08:18] VITALS: BP 120/72
[2019-08-31 09:55] LABS: INR 1.16 (0.85-1.17); PROTIME 14.2 SECONDS (11.6-15.0)
--- NOTE | 2019-08-31 10:09 | NUR ---
RESTING IN BED, NO DISTRESS NOTED, LAP SITES COVERED, CONT TO C/O ABD PAIN, TELE IN PLACE, MONITOR SUGARS
[2019-08-31 13:11] VITALS: BP 117/55
[2019-08-31 17:09] VITALS: BP 117/69
--- NOTE | 2019-08-31 19:50 | NUR ---
PT SITTING UP IN BED WITHOUT DISTRESS, AOX4. IV LEFT HAND INFUSING PROTONIX DRIP. O2 3.5L/HFNC. PT SOB, EXP WHEEZES HEARD BILAT. LAP SITES TO ABD CDI, DENIES PAIN. STATES SHE HAS BEEN HAVING MULTIPLE BOWEL MOVMENTS, REFUSES MILK OF MAG. DENIES OTHER NEEDS AT THIS TIME. CL IN REACH, WILL CTM
[2019-08-31 20:00] VITALS: BP 111/60
[2019-09-01] VITALS: BP 109/63
[2019-09-01 04:00] VITALS: BP 114/80
[2019-09-01 06:54] LABS: BASOPHILS 0.5 % (0-2); EOSINOPHILS 3.8 % (0-7); HEMATOCRIT 26.9 % (36.0-48.0); HEMOGLOBIN 8.5 g/dL (12-16); IMMATURE GRANULOCYTES 0.5 % (0-5); LYMPHOCYTES 17.2 % (15-50); MCH 27.1 pg (26.0-34.0); MCHC 31.6 g/dL (31.0-37.0); MCV 85.7 fL (80.0-100.0); MEAN PLATELET VOLUME 10.4 fL (7.4-10.4); MONOCYTES 10.3 % (2-11); NEUTROPHILS 67.7 % (40-80); PLATELET COUNT 366 10x3/uL (130-400); RBC 3.14 10x6/uL (4.00-5.40); RDW 17.2 % (11.5-14.5); WBC 8.3 10x3/uL (4.8-10.8)
[2019-09-01 06:56] LABS: INR 1.14 (0.85-1.17); PROTIME 14.1 SECONDS (11.6-15.0)
[2019-09-01 07:00] LABS: CALCIUM 8.8 mg/dL (8.5-10.1); CARBON DIOXIDE 29.5 mmol/L (21.0-32.0); CREATININE - SERUM 0.9 mg/dL (0.6-1.3); MAGNESIUM - SERUM 2.5 mg/dL (1.8-2.4); PHOSPHOROUS 3.5 mg/dL (2.5-4.9); POTASSIUM - SERUM 3.5 mmol/L (3.5-5.1)
[2019-09-01 08:43] VITALS: BP 134/69
--- NOTE | 2019-09-01 11:37 | NUR ---
RESTING IN BED, C/O LOOSE STOOL THIS AM, REFUSING MOM, CONT TO MONITOR
[2019-09-01 12:27] VITALS: BP 128/77
--- NOTE | 2019-09-01 16:08 | NUR ---
PT STATES TODAY THAT MORPHINE ISNT WORKING FOR HER BACK PAIN, MONISHA AWARE AND NEW ORDERS NOTED
[2019-09-01 16:57] VITALS: BP 119/66
[2019-09-01 20:00] VITALS: BP 111/70
--- NOTE | 2019-09-01 20:00 | NUR ---
PT SITTING UP IN BED WITHOUT DISTRESS, AOX4. IV LEFT HAND INFUSING PROTONIX @ 10. O2 4L/HFNC. LAP SITES TO ABD CDI. EXP WHEEZES HEARD IN ALL LOBES. PT STATES PAIN IN ABD AND BACK 04/03. WILL GIVE OXY ORDERED. DENIES OTHER NEEDS AT THIS TIME. CL IN REACH, WILL CTM
[2019-09-02 04:00] VITALS: BP 119/62
--- NOTE | 2019-09-02 04:25 | NUR ---
IV LEFT WRIST INFILTRATED. DC'D WITH CATHETER INTACT. RESITED 22G IV LEFT FA X2 ATTEMPTS. PT STATES PAIN 8, GAVE OXY ORDERED. FSBS 146, NO COVERAGE PER SS. DENIES OTHER NEEDS. CL IN REACH, WILL CTM
[2019-09-02 06:10] LABS: BASOPHILS 0.3 % (0-2); EOSINOPHILS 3.7 % (0-7); HEMATOCRIT 28.1 % (36.0-48.0); HEMOGLOBIN 8.6 g/dL (12-16); IMMATURE GRANULOCYTES 0.3 % (0-5); LYMPHOCYTES 15.5 % (15-50); MCH 26.3 pg (26.0-34.0); MCHC 30.6 g/dL (31.0-37.0); MCV 85.9 fL (80.0-100.0); MEAN PLATELET VOLUME 10.1 fL (7.4-10.4); NEUTROPHILS 69.2 % (40-80); PLATELET COUNT 330 10x3/uL (130-400); RBC 3.27 10x6/uL (4.00-5.40); RDW 16.9 % (11.5-14.5)
[2019-09-02 06:13] LABS: WBC 10.8 10x3/uL (4.8-10.8)
[2019-09-02 06:26] LABS: ANION GAP 11.6 mmol/L (8-16); CALCIUM 8.6 mg/dL (8.5-10.1); CARBON DIOXIDE 27.7 mmol/L (21.0-32.0); CREATININE - SERUM 0.9 mg/dL (0.6-1.3); MAGNESIUM - SERUM 1.9 mg/dL (1.8-2.4); PHOSPHOROUS 3.5 mg/dL (2.5-4.9); POTASSIUM - SERUM 3.3 mmol/L (3.5-5.1)
[2019-09-02 06:40] LABS: INR 1.1 (0.85-1.17); PROTIME 13.7 SECONDS (11.6-15.0)
--- NOTE | 2019-09-02 07:40 | NUR ---
PATIENT AWAKE. SITTING UP IN BED. CL IN REACH. NO NEEDS AT THIS TIME. WCTM.
[2019-09-02 08:20] VITALS: BP 104/68
--- NOTE | 2019-09-02 11:00 | NUR ---
PATIENT SITTING ON SIDE OF BED. FIXED IV THERAPY FROM BEEPING. CL IN REACH. NO FURTHER NEEDS AT THIS TIME.
[2019-09-02 12:55] VITALS: BP 148/79
--- NOTE | 2019-09-02 15:21 | NUR ---
Nutrition follow-up: Pt continues with clear liquid diet labs reviewed Wt: 187# Pt s/p jered Recommend advancing diet to full liquids. Discussed on IDT meeting RDN following.
[2019-09-02 16:36] VITALS: BP 145/71
--- NOTE | 2019-09-02 18:37 | NUR ---
PATIENT STATED FOOD WAS GREASY. SHE "DIDN'T EAT IT ALL BECAUSE I DIDN'T WANT TO GET SICK." CL IN REACH. WCTM
--- NOTE | 2019-09-02 20:00 | NUR ---
LYING IN BED. IRRITABLE. C/O PAIN IN BACK RATING 8. MEDICATED WITH OXY ORDERED. RESP IRREG, LABORED. O2 @ 5L/HFC. REPORTS NONPROD COUGH. ABD IS DISTENDED AND HYPOACTIVE. LAP INCISIONS X5 NOTED TO ABD WITH STERISTRIPS INTACT. TELEMETRY SHOWS SR WITH RATE OF 84. NS @ 10 MLHR AND PROTONIX DRIP @ 10 MLHR INFUSING IN LT FOREARM. IV BEEPS OFTEN SAYING OCCLUDED. OFFERED TO RESITE IV. PT YELLS AT STAFF AND STATES, "IM NOT GETTING POKED ON AGAIN." CL IN REACH.
[2019-09-03] VITALS: BP 141/85
--- NOTE | 2019-09-03 00:15 | NUR ---
FSBS AT THIS TIME. AWAKENED PT. NO DISTRESS. DENIES NEEDS. CL INREACH.
[2019-09-03 04:00] VITALS: BP 147/78
--- NOTE | 2019-09-03 06:28 | NUR ---
PT GRIPING AT STAFF BECAUSE STAFF STOOD AT BEDSIDE AND WATCHED HER TAKE HER CARAFATE. STATES, "NOBODY EVER STAYS AND WATCHES ME TAKE THIS. THEY JUST LEAVE IT." INFORMED PT THAT IT WAS MY JOB TO OBSERVE HER TAKE THE PILL AND COULDNT LEAVE IT AT BEDSIDE.
[2019-09-03 06:33] LABS: CALCIUM 8.9 mg/dL (8.5-10.1); CARBON DIOXIDE 26.3 mmol/L (21.0-32.0); CREATININE - SERUM 0.9 mg/dL (0.6-1.3); MAGNESIUM - SERUM 2.1 mg/dL (1.8-2.4); PHOSPHOROUS 3.5 mg/dL (2.5-4.9)
[2019-09-03 06:35] LABS: POTASSIUM - SERUM 4.3 mmol/L (3.5-5.1)
[2019-09-03 06:36] LABS: INR 1.15 (0.85-1.17); PROTIME 14.2 SECONDS (11.6-15.0)
[2019-09-03 06:56] LABS: BASOPHILS 0.2 % (0-2); EOSINOPHILS 0 % (0-7); HEMATOCRIT 30.3 % (36.0-48.0); HEMOGLOBIN 9.2 g/dL (12-16); IMMATURE GRANULOCYTES 0.4 % (0-5); LYMPHOCYTES 8.6 % (15-50); MCH 25.8 pg (26.0-34.0); MCHC 30.4 g/dL (31.0-37.0); MCV 84.9 fL (80.0-100.0); MEAN PLATELET VOLUME 10.5 fL (7.4-10.4); MONOCYTES 1.6 % (2-11); NEUTROPHILS 89.2 % (40-80); RBC 3.57 10x6/uL (4.00-5.40); RDW 16.1 % (11.5-14.5); WBC 11.4 10x3/uL (4.8-10.8)
[2019-09-03 06:59] LABS: PLATELET COUNT 402 10x3/uL (130-400)
[2019-09-03 09:52] VITALS: BP 91/58
--- NOTE | 2019-09-03 10:34 | NUR ---
PATIENT LAYING IN BED. NO NEEDS AT THIS TIME. CL IN REACH. WCTM
[2019-09-03 12:40] VITALS: BP 160/76
--- NOTE | 2019-09-03 12:52 | NUR ---
PATIENT CRYING. REQUESTED AND RECEIVED ANXIETY MED. WOULD LIKE "SOMETHING OTHER THAN THE STUFF I HAVE BEEN EATING THIS WEEK." PUT IN A CALL FOR A MENU FOR FULL LIQUID. IT WAS RECEIVED. CL IN REACH. CRYSTALTM
[2019-09-03 16:45] VITALS: BP 157/85
--- NOTE | 2019-09-03 18:07 | NUR ---
PATIENT AWAKE. STILL REFUSING TO EAT. DOESN'T WANT THE FOOD THEY ARE SENDING HER. CL IN REACH. WCTM
--- NOTE | 2019-09-03 19:30 | NUR ---
A&O X 4, REQUESTS REGULAR DIET. REPORTS REGULAR BMs. VS STABLE, SPO02 96% ON 6.5L HIGH FLOW NC. DENIES FURTHER NEEDS AT THIS TIME, WILL CONTINUE TO MONITOR.
[2019-09-03 20:00] VITALS: BP 134/92
[2019-09-04 04:00] VITALS: BP 176/89
--- NOTE | 2019-09-04 04:07 | NUR ---
I have reviewed this patient and I concur with the Shift Assessment completed by the Licensed Practical Nurse today this shift.
[2019-09-04 04:57] LABS: ANION GAP 12.8 mmol/L (8-16); CALCIUM 9.2 mg/dL (8.5-10.1); CARBON DIOXIDE 27.6 mmol/L (21.0-32.0); CREATININE - SERUM 0.9 mg/dL (0.6-1.3); MAGNESIUM - SERUM 2.1 mg/dL (1.8-2.4); PHOSPHOROUS 3.3 mg/dL (2.5-4.9)
[2019-09-04 05:03] LABS: BASOPHILS 0.1 % (0-2); EOSINOPHILS 0 % (0-7); HEMATOCRIT 29.6 % (36.0-48.0); HEMOGLOBIN 9.1 g/dL (12-16); IMMATURE GRANULOCYTES 1.1 % (0-5); LYMPHOCYTES 7.9 % (15-50); MCH 25.8 pg (26.0-34.0); MCHC 30.7 g/dL (31.0-37.0); MCV 83.9 fL (80.0-100.0); MEAN PLATELET VOLUME 10.5 fL (7.4-10.4); MONOCYTES 5.8 % (2-11); NEUTROPHILS 85.1 % (40-80); PLATELET COUNT 377 10x3/uL (130-400); RBC 3.53 10x6/uL (4.00-5.40); RDW 16.4 % (11.5-14.5)
[2019-09-04 05:06] LABS: INR 1.07 (0.85-1.17); PROTIME 13.8 SECONDS (11.6-15.0); WBC 18.5 10x3/uL (4.8-10.8)
[2019-09-04 05:08] LABS: POTASSIUM - SERUM 3.4 mmol/L (3.5-5.1)
--- NOTE | 2019-09-04 09:29 | NUR ---
PT ALERT X 4. BREATH SOUNDS DIMINISHED TO LOWER LOBES, 6.5L O2 PER NC, PT REPORTING DYSPNEA AND SOB. TELEMETRY IN PLACE. IV TO LEFT AC, PATENT, DRESSING CDI. PT REPORTING HEADACHE OF 04/03, SHE BELIEVES IT IS RELATED TO HER BP, MEDS GIVEN PER ORDERS, WILL MONITOR. LAP SITES TO ABDOMEN. BED LOW, CALL LIGHT IN REACH, NO OTHER NEEDS AT THIS TIME.
[2019-09-04 09:48] VITALS: BP 157/79
[2019-09-04 13:23] VITALS: BP 156/97
[2019-09-04 16:59] VITALS: BP 152/95
--- NOTE | 2019-09-04 20:00 | NUR ---
A&O X 4, AMBULATING IN ROOM, INDEPENDENTLY. DEIES NEEDS AT THIS TIME, WILL CONTINUE TO MONITOR.
[2019-09-04 21:19] VITALS: BP 143/76
[2019-09-05 01:43] VITALS: BP 159/72
[2019-09-05 06:35] VITALS: BP 182/71
--- NOTE | 2019-09-05 07:32 | NUR ---
AWAKE AND ALERT. ORIENTED X3. NO C/O AT THIS TIME. BP IS ELEVATED THIS AM. WILL GIVE PRN. IV TO LEFT AC IS INFILTRATED. WILL RESITE. LUNGS ARE CLEAR BILATERALLY, NO COUGH NOTED. SKIN IS INTACT WITHOUT REDNESS. DENIES NEEDS.
--- NOTE | 2019-09-05 07:55 | NUR ---
IV SITED TO LEFT HAND AFTER 2 ATTEMPTS WITH 24 G. GIVEN 10 MG APRESOLINE SLOW IVP FOR BP 184/101. WILL MONITOR.
[2019-09-05 08:07] LABS: ALBUMIN 2.4 g/dL (3.4-5.0); ANION GAP 11.2 mmol/L (8-16); BILIRUBIN - TOTAL 0.19 mg/dL (0.2-1.3); CALCIUM 8.7 mg/dL (8.5-10.1); CARBON DIOXIDE 26.7 mmol/L (21.0-32.0); POTASSIUM - SERUM 3.9 mmol/L (3.5-5.1); PROTEIN - SERUM 6.1 g/dL (6.4-8.2)
[2019-09-05 08:14] LABS: INR 1.18 (0.85-1.17); PROTIME 14.5 SECONDS (11.6-15.0)
[2019-09-05 08:15] LABS: BASOPHILS 0.1 % (0-2); EOSINOPHILS 0 % (0-7); HEMATOCRIT 29.7 % (36.0-48.0); HEMOGLOBIN 9.2 g/dL (12-16); IMMATURE GRANULOCYTES 1.1 % (0-5); LYMPHOCYTES 11.9 % (15-50); MCH 26.2 pg (26.0-34.0); MCV 84.6 fL (80.0-100.0); MONOCYTES 8.7 % (2-11); NEUTROPHILS 78.2 % (40-80); PLATELET COUNT 438 10x3/uL (130-400); RBC 3.51 10x6/uL (4.00-5.40); RDW 16.5 % (11.5-14.5); WBC 15.6 10x3/uL (4.8-10.8)
[2019-09-05 08:40] VITALS: BP 184/101
--- NOTE | 2019-09-05 11:03 | NUR ---
ATE MOST OF BREAKFAST. AMBULATED IN HALLWAY WITH PT 250 FEET. DENIES NEEDS.
--- NOTE | 2019-09-05 11:14 | NUR ---
FSBS 175. GIVEN 4 UNITS REGULAR SUBQ PER SS. LUNCH SERVED IN ROOM. C/O SOME NAUSEA. GIVEN 4MG ZOFRAN SLOW IVP FOR SAME. WILL MONITOR.
[2019-09-05 13:00] VITALS: BP 153/84
--- NOTE | 2019-09-05 13:16 | NUR ---
ATE MOST OF LUNCH. NAUSEA IS GONE. GAVE SELF A SPONGE BATH. LINENS CHANGED PER STAFF.
--- NOTE | 2019-09-05 14:51 | MORECARE ---
CASE MANAGEMENT DISCHARGE SUMMARY PATIENT: HUSSEIN DURBIN UNIT: [id number] ADM DATE: 08/29/19 AGE: 63 : 57 SEX: F ROOM/BED: D.2203 AUTHOR: BLAS,DOC PHYSICIAN: REFERRING PHYSICIAN: AMBROCIO POOLE MD DATE OF SERVICE: 09/05/19 Discharge Plan Patient Name: HUSSEIN DURBIN Facility: [facility]:[place] : 1955 Planned Disposition: Home Anticipated Discharge Date: Discharge Date: Expected LOS: Initial Reviewer: [email or web address] Initial Review Date: 08/30/2019 Generated: 09/05/19 3:51 pm DCP- Discharge Planning Updated by [id number]: Nikia Ambriz on 08/30/19 6:[address] Patient Name: HUSSEIN DURBIN Admission Status: ER Accout number: [id number] Admission Date: 08-29-2019 : 1955 Admission Diagnosis: Attending: AMBROCIO POOLE Current LOS: 1 Anticipated DC Date: Planned Disposition: Home Primary Insurance: [employer] ADV Discharge Planning Comments: CM met with patient to complete initial dc planning assessment. CM educated patient on the CM role and verbal consent given by patient to complete assessment. Patient lives at home with her brother where she is independent with her care. At discharge patient plans to return home and feels this is a safe discharge. CM discussed availability of home health, rehab services, and medical equipment. Her daughter will be her taxi driver home. Patient has a nebulizer and home o2 ( unknown provider ) Patient denied known discharge needs at this time. CM will continue to follow and will assist as needed with dc plans/needs. Studio Potter: Nikia Ambriz DCPIA - Discharge Planning Initial Assessment Updated by [email or web address]: Nikia Ambriz on 08/30/19 7:03 pm * Is the patient Alert and Oriented? Yes * How many steps to enter\exit or inside your home? * PCP CURTIS * Pharmacy [facility] * Preadmission Environment Home with Family * ADLs Independent * Other Equipment HOME / PORTABLE 02, CANE * List name and contact numbers for known caregivers / representatives who currently or will assist patient after discharge: TAYLOR Lopes DAUGHTER - [phone] MARIA LUISA Lopes [id number]-[phone] DAYANA MEJIA - [phone] PARISA LOWE [facility] [phone] * Verbal permission to speak to the caregivers and representatives has been obtained from the patient. Yes * Community resources currently utilized None * Additional services required to return to the preadmission environment? No * Can the patient safely return to the preadmission environment? Yes * Has this patient been hospitalized within the prior 30 days at any hospital? No External Providers External Provider: [facility] Next Contact Date: Service Request Date: Service Type: Resolution: Reviewer: Comments: Coverage Notice Reviewer: [email or web address] Marianne Warren Notice Issued Date-Time: 09/05/2019 14:40 Notice Type: IM Discharge Notice Notice Delivered To: Patient Relationship to Patient: Feather Renovator Name: Delivery Method: HAND - Hand Delivered Alyssa Days: Prior Verbal Notification: Recipient Understood Notice: Yes Recipient Signature: Yes Med Rec Note Co-signed by Attending: Coverage Notice Comment: Reviewer: [id number] Warren Notice Issued Date-Time: 09/05/2019 14:40 Notice Type: Patient Choice Letter Notice Delivered To: Patient Relationship to Patient: Feather Renovator Name: Delivery Method: HAND - Hand Delivered Alyssa Days: Prior Verbal Notification: Recipient Understood Notice: Yes Recipient Signature: Yes Med Rec Note Co-signed by Attending: Coverage Notice Comment: [facility] Last DP export: 08/30/19 6:11 p Patient Name: HUSSEIN DURBIN Page 25080 at 1451 All edits/amendments must be made on the electronic document DICTATION DATE: 09/05/19 145 OPTOMETRIC COORDINATOR: ANN 09/05/19 1451 RPT#: [id number] CT DATE: STATUS: ADM IN [facility] [address] [place] [address] END OF REPORT
--- NOTE | 2019-09-05 14:59 | MORECARE ---
CASE MANAGEMENT DISCHARGE SUMMARY PATIENT: HUSSEIN DURBIN UNIT: [id number] ADM DATE: 08/29/19 AGE: 63 : 57 SEX: F ROOM/BED: D.2203 AUTHOR: BLAS,DOC PHYSICIAN: REFERRING PHYSICIAN: AMBROCIO POOLE MD DATE OF SERVICE: 09/05/19 Discharge Plan Patient Name: HUSSEIN DURBIN Facility: [facility]:[place] : 1955 Planned Disposition: Home Anticipated Discharge Date: Discharge Date: Expected LOS: Initial Reviewer: [email or web address] Initial Review Date: 08/30/2019 Generated: 09/05/19 3:58 pm Comments DCP- Discharge Planning Updated by [email or web address]: Bailey Warren on 09/05/19 1:[address] PATIENT TO DISCHARGE HOME TODAY WITH [facility], [place] SIGNED AND PLACED IN CHART. IMM SERVED AND EXPLAINED. PATIENT TO DISCHARGE HOME TODAY DCP- Discharge Planning Updated by [email or web address]: Nikia Ambriz on 08/30/19 6:[address] Patient Name: HUSSEIN DURBIN Admission Status: ER Accout number: [id number] Admission Date: 08-29-2019 : 1955 Admission Diagnosis: Attending: AMBROCIO POOLE Current LOS: 1 Anticipated DC Date: Planned Disposition: Home Primary Insurance: [employer] ADV Discharge Planning Comments: CM met with patient to complete initial dc planning assessment. CM educated patient on the CM role and verbal consent given by patient to complete assessment. Patient lives at home with her brother where she is independent with her care. At discharge patient plans to return home and feels this is a safe discharge. CM discussed availability of home health, rehab services, and medical equipment. Her daughter will be her chassis driver home. Patient has a nebulizer and home o2 ( unknown provider ) Patient denied known discharge needs at this time. CM will continue to follow and will assist as needed with dc plans/needs. Youth Nutritional Monitor: Nikia Ambriz DCPIA - Discharge Planning Initial Assessment Updated by [email or web address]: Nikia Ambriz on 08/30/19 7:03 pm * Is the patient Alert and Oriented? Yes * How many steps to enter\exit or inside your home? * PCP [facility] * Pharmacy [facility] * Preadmission Environment Home with Family * ADLs Independent * Other Equipment HOME / PORTABLE 02, CANE * List name and contact numbers for known caregivers / representatives who currently or will assist patient after discharge: TAYLOR RUBIO - DAUGHTER - [phone] MARIA LUISA RUBIO - [phone] DAYANA LITTLE NECK Marianne MEJIA - [phone] PARISA LOWE [facility] [phone] * Verbal permission to speak to the caregivers and representatives has been obtained from the patient. Yes * Community resources currently utilized None * Additional services required to return to the preadmission environment? No * Can the patient safely return to the preadmission environment? Yes * Has this patient been hospitalized within the prior 30 days at any hospital? No Coverage Notice Reviewer: [id number] Marianne Warren Notice Issued Date-Time: 09/05/2019 14:40 Notice Type: IM Discharge Notice Notice Delivered To: Patient Relationship to Patient: Hall Monitor Name: Delivery Method: HAND - Hand Delivered Alyssa Days: Prior Verbal Notification: Recipient Understood Notice: Yes Recipient Signature: Yes Med Rec Note Co-signed by Attending: Coverage Notice Comment: Reviewer: [id number] Warren Notice Issued Date-Time: 09/05/2019 14:40 Notice Type: Patient Choice Letter Notice Delivered To: Patient Relationship to Patient: Hall Monitor Name: Delivery Method: HAND - Hand Delivered Alyssa Days: Prior Verbal Notification: Recipient Understood Notice: Yes Recipient Signature: Yes Med Rec Note Co-signed by Attending: Coverage Notice Comment: [facility] Last DP export: 09/05/19 1:51 Patient Name: HUSSEIN DURBIN Page [id number] at 1459 All edits/amendments must be made on the electronic document DICTATION DATE: 09/05/191457 ADVERTISING SPECIALIST: ANN 09/05/191457 RPT#: [id number] DC DATE: STATUS: ADM IN [facility] [address] [place] [address] END OF REPORT
[2019-09-05] MEDS ORDERED: ATROVENT 0.02%2.5 ML UPD (15:02)
[2019-09-05] MEDS ORDERED: ZYVOX600 MG PO (15:02)
[2019-09-05] MEDS ORDERED: XOPENEX 1.1.25 MG/3 UPD (15:03)
[2019-09-05] MEDS ORDERED: PULMICORT0.5 MG/21 UPD (15:04)
[2019-09-05] MEDS ORDERED: MUCINEX DM ER1 EAC1 PO (15:04)
[2019-09-05] MEDS ORDERED: PREDNISONE10 MG PO (15:06)
[2019-09-05] MEDS ORDERED: OMNICEF300 MG PO (15:06)
[2019-09-05] MEDS ORDERED: Xopenex 0.63 MG INH UPD (15:07)
--- NOTE | 2019-09-05 16:33 | NUR ---
DISCHARGE ORDERS RECEIVED. DISCHARGE INSTRUCTIONS GIVEN BOTH VERBALLY AND WRITTEN. ALL QUESTIONS ANSWERED. PATIENT AND FAMILY VERBALIZED UNDERSTANDING OF SAME. IV TO LEFT HAND D/C WITH CATHETER INTACT. ALL BELONGINGS WITH PATIENT. DISCHARGED TO HOME AMBULATORY WITH FAMILY.
--- NOTE | 2019-09-08 13:55 | MORECARE ---
CASE MANAGEMENT DISCHARGE SUMMARY PATIENT: HUSSEIN DURBIN UNIT: [id number] ADM DATE: 08/29/19 AGE: 63 : 57 SEX: F ROOM/BED: D.2203 AUTHOR: BLAS,DOC PHYSICIAN: REFERRING PHYSICIAN: AMBROCIO POOLE MD DATE OF SERVICE: 09/08/19 Discharge Plan Patient Name: HUSSEIN DURBIN Facility: [facility]:[place] : 1955 Planned Disposition: Home Anticipated Discharge Date: Discharge Date: 09/05/2019 Expected LOS: Initial Reviewer: [email or web address] Initial Review Date: 08/30/2019 Generated: 09/08/19 2:54 pm Comments DCP- Discharge Planning Updated by [email or web address]: Bailey Warren on 09/05/19 1:[address] PATIENT TO DISCHARGE HOME TODAY WITH [facility], [place] SIGNED AND PLACED IN CHART. IMM SERVED AND EXPLAINED. PATIENT TO DISCHARGE HOME TODAY DCP- Discharge Planning Updated by [id number]: Nikia Ambriz on 08/30/19 6:[address] Patient Name: HUSSEIN DURBIN Admission Status: ER Accout number: [id number] Admission Date: 08-29-2019 : 1955 Admission Diagnosis: Attending: AMBROCIO POOLE Current LOS: 1 Anticipated DC Date: Planned Disposition: Home Primary Insurance: [email or web address] Discharge Planning Comments: CM met with patient to complete initial dc planning assessment. CM educated patient on the CM role and verbal consent given by patient to complete assessment. Patient lives at home with her brother where she is independent with her care. At discharge patient plans to return home and feels this is a safe discharge. CM discussed availability of home health, rehab services, and medical equipment. Her daughter will be her dedicated local truck driver home. Patient has a nebulizer and home o2 ( unknown provider ) Patient denied known discharge needs at this time. CM will continue to follow and will assist as needed with dc plans/needs. Partner Alliance Manager: Nikia Ambriz DCPIA - Discharge Planning Initial Assessment Updated by [email or web address]: Nikia Ambriz on 08/30/19 7:03 pm * Is the patient Alert and Oriented? Yes * How many steps to enter\exit or inside your home? * PCP [facility] * Preadmission Environment Home with Family * ADLs Independent * Other Equipment HOME / PORTABLE 02, CANE * List name and contact numbers for known caregivers / representatives who currently or will assist patient after discharge: TAYLOR RUBIO - DAUGHTER - [phone] MARIA LUISA RUBIO - [phone] DAYANA RUBIO Marianne MEJIA - [phone] PARISA [facility]OWE [facility] [phone] * Verbal permission to speak to the caregivers and representatives has been obtained from the patient. Yes * Community resources currently utilized None * Additional services required to return to the preadmission environment? No * Can the patient safely return to the preadmission environment? Yes * Has this patient been hospitalized within the prior 30 days at any hospital? No Coverage Notice Reviewer: [email or web address] Warren Notice Issued Date-Time: 09/05/2019 14:40 Notice Type: IM Discharge Notice Notice Delivered To: Patient Relationship to Patient: Wallpaperer Helper Name: Delivery Method: HAND - Hand Delivered Alyssa Days: Prior Verbal Notification: Recipient Understood Notice: Yes Recipient Signature: Yes Med Rec Note Co-signed by Attending: Coverage Notice Comment: Reviewer: [email or web address] Warren Notice Issued Date-Time: 09/05/2019 14:40 Notice Type: Patient Choice Letter Notice Delivered To: Patient Relationship to Patient: Wallpaperer Helper Name: Delivery Method: HAND - Hand Delivered Alyssa Days: Prior Verbal Notification: Recipient Understood Notice: Yes Recipient Signature: Yes Med Rec Note Co-signed by Attending: Coverage Notice Comment: [facility] Last DP export: 09/05/19 1:59 Patient Name: HUSSEIN DURBIN Page [id number] at 1355 All edits/amendments must be made on the electronic document DICTATION DATE: 09/08/19 1353 ORDNANCE ARTIFICER: ANN 09/08/19 1353 RPT#: [id number] DC DATE:09/05/19 STATUS: DIS IN [facility] [address] [place] [address] END OF REPORT
== END 2019-09-05 16:43 | disposition home or self-care (01) | DRG 193 ==
LOC: D.ER 08:51 → D.ICU 13:22 → D.MS 13:22 → D.ICU 15:13 → D.MS 08-30 19:31
PROVIDERS: Emergency Medicine; Family Medicine; ADMIT Internal Medicine Nephrology; ATTEND Internal Medicine Nephrology
DX: J18.9 Pneumonia, unspecified organism (principal); J96.21 Acute and chronic respiratory failure with hypoxia; E87.1 Hypo-osmolality and hyponatremia; J44.1 Chronic obstructive pulmonary disease with (acute) exacerbation; J98.11 Atelectasis; J44.0 Chronic obstructive pulmonary disease with (acute) lower respiratory infection; D64.9 Anemia, unspecified; I10 Essential (primary) hypertension; I49.5 Sick sinus syndrome; J30.9 Allergic rhinitis, unspecified; E11.65 Type 2 diabetes mellitus with hyperglycemia; Z79.01 Long term (current) use of anticoagulants; I73.9 Peripheral vascular disease, unspecified; K21.9 Gastro-esophageal reflux disease without esophagitis; Z95.0 Presence of cardiac pacemaker; K57.90 Diverticulosis of intestine, part unspecified, without perforation or abscess without bleeding; I25.10 Atherosclerotic heart disease of native coronary artery without angina pectoris; Z86.718 Personal history of other venous thrombosis and embolism

== ENCOUNTER 2020-11-23 14:21 | Outpatient (CLI) | payer MEDICARE, MEDICAID ==
[2019-08-30 09:49] VITALS: BMI 31.7
[~2020-11-23 14:21] MED LIST changes: +ATROVENT 0.02%2.5 ML UPD; +PULMICORT0.5 MG/21 UPD; +XOPENEX 1.1.25 MG/3 UPD; +Xopenex 0.63 MG INH UPD; +ZYVOX600 MG PO
== END 2020-11-23 23:59 ==
LOC: D.LAB 14:21
PROVIDERS: ATTEND Internal Medicine Pulmonary Disease
DX: Z20.822 Contact with and (suspected) exposure to COVID-19 (principal)